=== PATIENT | female | born 1940 | race Caucasian/White ===

== ENCOUNTER 2016-08-12 16:54 | Emergency (ER) | payer MEDICARE ==
[~2016-08-12 16:54] MED LIST: /ADVA50050; /PANT40TA; /WARF25TA; ALBU83IN; ARTIFICAL TEARS; BACL10TA2; BISA10SU2; CALC12502; COLA100C2; DIOV160T5; FERR325T; HYDR25TA6; MAALOX; METAMUCIL; MYLI40DR; POTA10CA2; PREG100CA; SENO8.6T5; SM I100T; THERGRAN; TRAM50TA2; TYL325; VENTAER; ZOLO50TA; [UNRECOGNIZED DRUG - MIXTURE]; [UNRECOGNIZED DRUG - OTHER]
[2016-08-12 19:36] LABS: BASO % 0.7 % (0.0-1.0); EOS # 0.2 K/mm3 (0.0-0.50); EOS % 4.2 % (0.0-3.0); LARGE UNSTAINED CELL # 0.2 K/mm3 (0.0-0.4); LARGE UNSTAINED CELL % 2.9 % (0.0-4.0); LYMPH # 0.7 K/mm3 (1.5-4.5); LYMPH % 13.1 % (24.0-44.0); MEAN CORPUSCULAR HEMOGLOBIN 31.4 pg (27.0-33.0); MEAN CORPUSCULAR HGB CONC 34.2 g/dl (32.0-36.5); MEAN CORPUSCULAR VOLUME 91.7 fl (80.0-96.0); MONO # 0.4 K/mm3 (0.0-0.8); MONO % 6.6 % (0.0-5.0); NEUTROPHILS # 3.8 K/mm3 (1.8-7.7); NEUTROPHILS % 72.5 % (36.0-66.0); PLATELET COUNT, AUTOMATED 165 k/mm3 (150-450); RED CELL DISTRIBUTION WIDTH 12.9 % (11.5-14.5); WHITE BLOOD COUNT 5.2 K/mm3 (4.0-10.0)
[2016-08-12 19:45] LABS: ANION GAP 7 MEQ/L (8-16); BLOOD UREA NITROGEN 22 MG/DL (7-18); CALCIUM LEVEL 9.2 MG/DL (8.8-10.2); CARBON DIOXIDE LEVEL 31 MEQ/L (21-32); CHLORIDE LEVEL 103 MEQ/L (98-107); CREATININE FOR GFR 1.04 MG/DL (0.55-1.02); GLOMERULAR FILTRATION RATE 54.7 (>39); GLUCOSE, FASTING 124 MG/DL (83-110); POTASSIUM SERUM 3.9 MEQ/L (3.5-5.1); SODIUM LEVEL 141 MEQ/L (136-145)
[2016-08-12 19:59] LABS: ERYTHROCYTE SEDIMENTATION RATE 20 mm/hr (0-30)
[2016-08-12] MEDS ORDERED: valACYclovir HCL 500 MG TAB As Ordered ONE (21:35)
--- NOTE | 2016-08-12 21:49 | EDDOCDS ---
Physician Documentation [facility] Name: Heidy Palafox Age: 76 yrs Sex: Female : 1940 Arrival Date: 08/12/2016 Time: 16:54 Bed TR8 Private MD: Dmitriy Manning Disposition: 08/12 21:27 Critical Care: Critical care not applicable. le Disposition: 08/12/16 21:25 Discharged to Home/Self Care. Impression: Zoster [herpes zoster]. - Condition is Stable. - Discharge Instructions: Shingles. - Prescriptions for Valtrex 1 g Oral Tablet - take 1 tablet by ORAL route every 8 hours for 7 days; 21 tablet. - Medication Reconciliation, Local Pharmacy Hours form. - Follow up: Dmitriy Manning; When: Call to arrange an appointment; Reason: Recheck today's complaints, Continuance of care. - Problem is new. - Symptoms are unchanged. - Notes: Return to the ED for any further concerns Historical: - Allergies: Augmentin; Ciprofloxacin; Codeine Sulfate; Keflex; - Home Meds: 1. Bystolic 5 mg oral tab 1 tab once daily (Last dose: 08/12/2016 08:00) 2. Lasix 20 mg Oral tab 1 tab once daily (Last dose: 08/12/2016 08:00) 3. multivitamin Oral tab 1 tab daily (Last dose: 08/12/2016 08:00) 4. ondansetron HCl 4 mg Oral tab four times a day 5. Os-Keenan 500 + D3 500 mg(1,250mg) -200 unit oral tab twice a day (Last dose: 08/12/2016) 6. potassium chloride 10 mEq Oral cpER 1 cap once daily (Last dose: 08/12/2016 08:00) 7. ProAir HFA 90 mcg/actuation inhalation HFAA 1 puff as needed - PMHx: Asthma; Hypertension; Osteoporosis; - PSHx: Right hip eplacement 2007; Appendectomy; Hysterectomy; Back surgery; - Social history: Smoking status: Patient states former smoker of tobacco. No barriers to communication noted, The patient speaks fluent Swedish. - Family history: No immediate family members are acutely ill. - : The pt / caregiver states he / she is not on anticoagulants. Home medication list is obtained from the patient. - Exposure Risk Screening:: None identified. Vital Signs: 16:56 BP 179 / 87; Pulse 71; Resp 16; Temp 97(O); Pulse Ox 97% ; Weight 79.38 kg / 175 lbs; cmb Height 5 ft. 2 in. (157.48 cm); Pain 3/10; 21:33 BP 169 / 81; Pulse 63; Resp 18; Temp 98.3(TE); Pulse Ox 98% on R/A; Pain 0/10; mdr 16:56 Body Mass Index 32.01 (79.38 kg, 157.48 cm) cmb MDM: 19:14 CBC with Diff Ordered. EDMS 19:14 BMP Ordered. EDMS 19:14 ESR Ordered. EDMS 19:14 CRP Ordered. EDMS 19:18 UA Ordered. EDMS 19:19 Hip,AP,LAT to include Pelvis Ordered. EDMS 19:52 [facility] Payment Agreement was scanned into [employer] and attached to record. gjb :52 Financial registration complete. gjb 20:25 CBC with Diff Reviewed. le 20:25 BMP Reviewed. le 20:25 UA Reviewed. le 20:25 ESR Reviewed. le 20:25 CRP Reviewed. le 21:23 valACYclovir 1000 mg PO once ordered. le Administered Medications: 21:44 Drug: valACYclovir 1000 mg [valacyclovir 500 mg tablet (2 tabs)] Route: PO; mb9 Signatures: Dispatcher [employer] Erik Milan, RN Linda Willis, LOG OPERATIONS COORDINATOR Abdi NguyễnRN RN mb9 Paola Lozano The chart was reviewed and I authenticate all verbal orders and agree with the evaluation and treatment provided.Attachments: :52 [facility] Payment Agreement gj MTDD
--- NOTE | 2016-08-12 21:49 | EDDOCDS ---
Nurse's Notes [facility] Name: Heidy Palafox Age: 76 yrs Sex: Female : 1940 Arrival Date: 08/12/2016 Time: 16:54 Bed TR8 Private MD: Dmitriy Manning Diagnosis: Zoster [herpes zoster] Presentation: 08/12 17:17 Presenting complaint: Patient states: Worsening right hip/right sided abdominal pain dwg for 1-2 weeks, no injury or trauma. Adult Sepsis Screening: The patient does not have new or worsening altered mentation. Patient's respiratory rate is less than 22. Systolic blood pressure is greater than 100. Patient has a qSOFA score of 0- Negative Sepsis Screen. Suicide/Homicide risk assessment- the patient denies having any suicidal and/or homicidal ideations and does not present with any other emotional, behavioral or mental health complaints. Status: Patient is not a catering convention services manager or dependent. Transition of care: patient was received from Dr Manning's office ORTHO. 17:17 Acuity: SEGUNDO Level 3 dwg 17:17 Method Of Arrival: Wheelchair dwg Triage Assessment: 17:24 General: Appears in no apparent distress. Pain: Pain currently is 1 out of 10 on a pain dwg scale. Historical: - Allergies: Augmentin; Ciprofloxacin; Codeine Sulfate; Keflex; - Home Meds: 1. Bystolic 5 mg oral tab 1 tab once daily (Last dose: 08/12/2016 08:00) 2. Lasix 20 mg Oral tab 1 tab once daily (Last dose: 08/12/2016 08:00) 3. multivitamin Oral tab 1 tab daily (Last dose: 08/12/2016 08:00) 4. ondansetron HCl 4 mg Oral tab four times a day 5. Os-Keenan 500 + D3 500 mg(1,250mg) -200 unit oral tab twice a day (Last dose: 08/12/2016) 6. potassium chloride 10 mEq Oral cpER 1 cap once daily (Last dose: 08/12/2016 08:00) 7. ProAir HFA 90 mcg/actuation inhalation HFAA 1 puff as needed - PMHx: Asthma; Hypertension; Osteoporosis; - PSHx: Right hip eplacement 2008; Appendectomy; Hysterectomy; Back surgery; - Social history: Smoking status: Patient states former smoker of tobacco. No barriers to communication noted, The patient speaks fluent Azeri. - Family history: No immediate family members are acutely ill. - : The pt / caregiver states he / she is not on anticoagulants. Home medication list is obtained from the patient. - Exposure Risk Screening:: None identified. Screenin:45 Screening information is obtained from the patient. Fall risk: No risks identified. mb9 Assistance ADL's: requires no assistance with activities of daily living. Abuse/DV Screen: The patient / caregiver reports he/she is: not in a situation that causes fear, pain or injury. Nutritional screening: No deficits noted. Advance Directives: There is no active DNR order. home support is adequate. Assessment: 21:45 General: Appears in no apparent distress, Behavior is appropriate for age, cooperative. mb9 Respiratory: Airway is patent Respiratory effort is even, unlabored. Vital Signs: 16:56 BP 179 / 87; Pulse 71; Resp 16; Temp 97(O); Pulse Ox 97% ; Weight 79.38 kg; Height 5 cmb ft. 2 in. (157.48 cm); Pain 3/10; 21:33 BP 169 / 81; Pulse 63; Resp 18; Temp 98.3(TE); Pulse Ox 98% on R/A; Pain 0/10; mdr 16:56 Body Mass Index 32.01 (79.38 kg, 157.48 cm) [facility] Vitals: 16:56 Log In Time: August 12, 2016 at 16:54. cmb ED Course: 16:55 Patient visited by Kathryn Nugent. cmb 16:55 Dmitriy Manning is Private Physician. cmb 16:55 Patient moved to Waiting cmb 16:59 Patient moved to Pre RCE cmb 17:19 Triage Initiated dwg 18:51 Patient moved to Triage 2 mdr 19:09 [facility] Lange FNP [facility]. le 19:14 Patient visited by Linda Lange FNP. le 19:16 Patient visited by Linda Lange FNP. le 19:26 Patient visited by Nimesh Alvarez PCA. mdr 19:26 CRP Sent. mdr 19:26 ESR Sent. mdr 19:26 BMP Sent. mdr 19:26 CBC with Diff Sent. mdr 19:38 Patient moved to TR2 cz 19:41 UA Sent. mdr 19:52 [facility] [place] Agreement was scanned into [employer] and attached to record. gjsveta 21:24 Dmitriy Manning is Referral Physician. le 21:27 Patient moved to PR2 / 26 sls1 21:44 Patient moved to TR8 mb9 21:45 The patient / caregiver is instructed regarding the plan of care and ED course. mb9 21:45 No IV's were initiated during this patient's visit. No procedures done that require mb9 assistance. Administered Medications: 21:44 Drug: valACYclovir 1000 mg [valacyclovir 500 mg tablet (2 tabs)] Route: PO; mb9 Order Results: Lab Order: CBC with Diff; SPEC'M 08/12/16 19:24 Test: WHITE BLOOD COUNT; Value: 5.2; Range: 4.0-10.0; Units: K/mm3; Status: F Test: RED BLOOD COUNT; Value: 4.72; Range: 4.00-5.40; Units: M/mm3; Status: F Test: HEMOGLOBIN; Value: 14.8; Range: 12.0-16.0; Units: g/dl; Status: F Test: HEMATOCRIT; Value: 43.3; Range: 36.0-47.0; Units: %; Status: F Test: MEAN CORPUSCULAR VOLUME; Value: 91.7; Range: 80.0-96.0; Units: fl; Status: F Test: MEAN CORPUSCULAR HEMOGLOBIN; Value: 31.4; Range: 27.0-33.0; Units: pg; Status: F Test: MEAN CORPUSCULAR HGB CONC; Value: 34.2; Range: 32.0-36.5; Units: g/dl; Status: F Test: RED CELL DISTRIBUTION WIDTH; Value: 12.9; Range: 11.5-14.5; Units: %; Status: F Test: PLATELET COUNT, AUTOMATED; Value: 165; Range: 150-450; Units: k/mm3; Status: F Test: NEUTROPHILS %; Value: 72.5; Range: 36.0-66.0; Abnormal: Above high normal; Units: %; Status: F Test: LYMPH %; Value: 13.1; Range: 24.0-44.0; Abnormal: Below low normal; Units: %; Status: F Test: MONO %; Value: 6.6; Range: 0.0-5.0; Abnormal: Above high normal; Units: %; Status: F Test: EOS %; Value: 4.2; Range: 0.0-3.0; Abnormal: Above high normal; Units: %; Status: F Test: BASO %; Value: 0.7; Range: 0.0-1.0; Units: %; Status: F Test: LARGE UNSTAINED CELL %; Value: 2.9; Range: 0.0-4.0; Units: %; Status: F Test: NEUTROPHILS #; Value: 3.8; Range: 1.8-7.7; Units: K/mm3; Status: F Test: LYMPH #; Value: 0.7; Range: 1.5-4.5; Abnormal: Below low normal; Units: K/mm3; Status: F Test: MONO #; Value: 0.4; Range: 0.0-0.8; Units: K/mm3; Status: F Test: EOS #; Value: 0.2; Range: 0.0-0.50; Units: K/mm3; Status: F Test: BASO #; Value: 0.0; Range: 0.0-0.2; Units: K/mm3; Status: F Test: LARGE UNSTAINED CELL #; Value: 0.2; Range: 0.0-0.4; Units: K/mm3; Status: F Lab Order: [facility]; [facility]' 08/12/16 19:24 Test: GLUCOSE, FASTING; Value: 124; Range: 83-110; Abnormal: Above high normal; Units: MG/DL; Status: F Test: BLOOD UREA NITROGEN; Value: 22; Range: 7-18; Abnormal: Above high normal; Units: MG/DL; Status: F Test: CREATININE FOR GFR; Value: 1.04; Range: 0.55-1.02; Abnormal: Above high normal; Units: MG/DL; Status: F Test: GLOMERULAR FILTRATION RATE; Value: 54.7; Range: >39; Status: F Test: SODIUM LEVEL; Value: 141; Range: 136-145; Units: MEQ/L; Status: F Test: POTASSIUM SERUM; Value: 3.9; Range: 3.5-5.1; Units: MEQ/L; Status: F Test: CHLORIDE LEVEL; Value: 103; Range: 98-107; Units: MEQ/L; Status: F Test: CARBON DIOXIDE LEVEL; Value: 31; Range: 21-32; Units: MEQ/L; Status: F Test: ANION GAP; Value: 7; Range: 8-16; Abnormal: Below low normal; Units: MEQ/L; Status: F Test: CALCIUM LEVEL; Value: 9.2; Range: 8.8-10.2; Units: MG/DL; Status: F Test Note: ; Units are mL/min/1.73 m2 Chronic Kidney Disease Staging per NKF: Stage I & II GFR >=60 Normal to Mildly Decreased Stage III GFR 30-59 Moderately Decreased Stage IV GFR 15-29 Severely Decreased Stage V GFR <15 Very Little GFR Left ESRD GFR <15 on LETTER OF CREDIT DOCUMENT EXAMINER Lab Order: ESR; SPEC' 08/12/16 19:24 Test: ERYTHROCYTE SEDIMENTATION RATE; Value: 20; Range: 0-30; Units: mm/hr; Status: F Lab Order: CRP; [facility]' 08/12/16 19:24 Test: C REACTIVE PROTEIN QUANTITATIV; Value: < 0.30; Range: 0.00-0.30; Units: MG/DL; Status: F Lab Order: UA; [facility]' 08/12/16 19:38 Test: APPEARANCE, URINE; Value: CLEAR; Range: CLEAR; Status: F Test: COLOR, URINE; Value: YELLOW; Range: YELLOW; Status: F Test: PH,URINE; Value: 6.0; Range: 5.0-9.0; Units: UNITS; Status: F Test: SPECIFIC GRAVITY URINE AUTO; Value: 1.021; Range: 1.002-1.035; Status: F Test: PROTEIN, URINE AUTO; Value: NEGATIVE; Range: NEGATIVE; Units: mg/dL; Status: F Test: GLUCOSE, URINE (UA) AUTO; Value: NEGATIVE; Range: NEGATIVE; Units: mg/dL; Status: F Test: KETONE, URINE AUTO; Value: TRACE; Range: NEGATIVE; Abnormal: Above high normal; Units: mg/dL; Status: F Test: UROBILINOGEN, URINE AUTO; Value: 0.2; Range: 0.0-2.0; Units: mg/dL; Status: F Test: BILIRUBIN, URINE AUTO; Value: NEGATIVE; Range: NEGATIVE; Status: F Test: NITRITE, URINE AUTO; Value: NEGATIVE; Range: NEGATIVE; Status: F Test: LEUKOCYTE ESTERASE, URINE AUTO; Value: NEGATIVE; Range: NEGATIVE; Status: F Test: BLOOD, URINE BLOOD; Value: NEGATIVE; Range: NEGATIVE; Status: F Test: WBC, URINE AUTO; Value: 2; Range: 0-3; Units: /HPF; Status: F Test: RBC, URINE AUTO; Value: 4; Range: 0-3; Abnormal: Above high normal; Units: /HPF; Status: F Test: BACTERIA, URINE AUTO; Value: NEGATIVE; Range: NEGATIVE; Status: F Test: SQUAMOUS EPITHELIAL CELL UR AU; Value: 1; Range: 0-6; Units: /HPF; Status: F Test: HYALINE CAST, URINE AUTO; Value: 0; Range: 0-1; Units: /LPF; Status: F Outcome: 21:25 Discharge ordered by Provider. le 21:45 Discharge Assessment: Patient awake, alert and oriented x 3. No cognitive and/or mb9 functional deficits noted. Patient verbalized understanding of disposition instructions. patient administered narcotics - no. The following High Risk Discharge criteria are identified: None. Discharged to home ambulatory. Condition: good Condition: stable Condition: improved. Discharge instructions given to patient, Instructed on discharge instructions, follow up and referral plans. medication usage, Demonstrated understanding of instructions, medications, Pt was receptive of discharge instructions/ teaching. Prescriptions given X 1. No special radiology studies were completed. Property :Personal belongings accompany Pt. 21:48 Patient left the ED. mb9 Signatures: Erik Romo RN RN dwg Zecher, Calvin, RN RN cz Westcott, Lisa, CONTRACT CONSULTANT CONTRACT CONSULTANTTorrie Emerson RN RN sls1 Kathryn Nugent Michael, RN RN mb9 Nimesh Alvarez, MARISA RUBBER MOLD MAKER Paola Lopez MTDD
--- NOTE | 2016-08-13 08:46 | REP ---
PELVIS RIGHT HIP: Three views. HISTORY: Pain. Status post hip replacement. FINDINGS: There is diffuse osteoporosis. The patient is status post lumbar spine fusion. Scoliosis is seen. A right hip prosthesis noted in place. There is no evidence of fracture or bony destructive lesion. There is an exostosis in the subtrochanteric femur projecting laterally. This is unchanged from November 25, 2015. IMPRESSION: Diffuse osteoporosis. Postoperative changes in the lumbar spine and right hip. No acute bony abnormality. Signed by Ellis Maradiaga MD 08/13/2016 08:04 P
--- NOTE | 2016-08-14 22:49 | EDDOCDS ---
Physician Documentation [facility] Name: Heidy Palafox Age: 76 yrs Sex: Female : 1940 Arrival Date: 08/12/2016 Time: 16:54 Bed TR8 Private MD: Dmitriy Manning Disposition: 08/12 21:27 Critical Care: Critical care not applicable. le Disposition: 08/12/16 21:25 Discharged to Home/Self Care. Impression: Zoster [herpes zoster]. - Condition is Stable. - Discharge Instructions: Shingles. - Prescriptions for Valtrex 1 g Oral Tablet - take 1 tablet by ORAL route every 8 hours for 7 days; 21 tablet. - Medication Reconciliation, Local Pharmacy Hours form. - Follow up: Dmitriy Manning; When: Call to arrange an appointment; Reason: Recheck today's complaints, Continuance of care. - Problem is new. - Symptoms are unchanged. - Notes: Return to the ED for any further concerns Historical: - Allergies: Augmentin; Ciprofloxacin; Codeine Sulfate; Keflex; - Home Meds: 1. Bystolic 5 mg oral tab 1 tab once daily (Last dose: 08/12/2016 08:00) 2. Lasix 20 mg Oral tab 1 tab once daily (Last dose: 08/12/2016 08:00) 3. multivitamin Oral tab 1 tab daily (Last dose: 08/12/2016 08:00) 4. ondansetron HCl 4 mg Oral tab four times a day 5. Os-Keenan 500 + D3 500 mg(1,250mg) -200 unit oral tab twice a day (Last dose: 08/12/2016) 6. potassium chloride 10 mEq Oral cpER 1 cap once daily (Last dose: 08/12/2016 08:00) 7. ProAir HFA 90 mcg/actuation inhalation HFAA 1 puff as needed - PMHx: Asthma; Hypertension; Osteoporosis; - PSHx: Right hip eplacement 2007; Appendectomy; Hysterectomy; Back surgery; - Social history: Smoking status: Patient states former smoker of tobacco. No barriers to communication noted, The patient speaks fluent Turkish. - Family history: No immediate family members are acutely ill. - : The pt / caregiver states he / she is not on anticoagulants. Home medication list is obtained from the patient. - Exposure Risk Screening:: None identified. Vital Signs: 16:56 BP 179 / 87; Pulse 71; Resp 16; Temp 97(O); Pulse Ox 97% ; Weight 79.38 kg / 175 lbs; cmb Height 5 ft. 2 in. (157.48 cm); Pain 3/10; 21:33 BP 169 / 81; Pulse 63; Resp 18; Temp 98.3(TE); Pulse Ox 98% on R/A; Pain 0/10; mdr 16:56 Body Mass Index 32.01 (79.38 kg, 157.48 cm) cmb MDM: 19:14 CBC with Diff Ordered. EDMS 19:14 BMP Ordered. EDMS 19:14 ESR Ordered. EDMS 19:14 CRP Ordered. EDMS 19:18 UA Ordered. EDMS 19:19 Hip,AP,LAT to include Pelvis Ordered. EDMS :52 [facility]S [facility]CLUDE 234 BEDS AT THE [facility] Payment Agreement was scanned into [employer] and attached to record. [facility] :52 Financial registration complete. gjb 20:25 CBC with Diff Reviewed. le 20:25 BMP Reviewed. le 20:25 UA Reviewed. le 20:25 ESR Reviewed. le 20:25 CRP Reviewed. le 21:23 valACYclovir 1000 mg PO once ordered. le 08/13 11:54 T-Sheet-- Draft Copy was scanned into [employer] and attached to record. gb Administered Medications: 08/12 21:44 Drug: valACYclovir 1000 mg [valacyclovir 500 mg tablet (2 tabs)] Route: PO; mb9 Signatures: Dispatcher [employer] Erik Milan RN RN dwg Barnhardt, Gloria, Reg Reg gb Linda Lange, CUONG MARKETING ANALYTICS ANALYSTAbdi Flanagan RN RN mb9 Paola Lozano The chart was reviewed and I authenticate all verbal orders and agree with the evaluation and treatment provided.Attachments: : COUNTS INCLUDE 234 BEDS AT THE [facility] Payment Agreement [facility] 08/13 11:54 T-Sheet-- Draft Copy gb Chart Complete MTDD
--- NOTE | 2016-08-14 22:49 | EDDOCDS ---
Physician Documentation [facility] Name: Heidy Palafox Age: 76 yrs Sex: Female : 1940 Arrival Date: 08/12/2016 Time: 16:54 Bed TR8 Private MD: Dmitriy Manning Disposition: 08/12 21:27 Critical Care: Critical care not applicable. le Disposition: 08/12/16 21:25 Discharged to Home/Self Care. Impression: Zoster [herpes zoster]. - Condition is Stable. - Discharge Instructions: Shingles. - Prescriptions for Valtrex 1 g Oral Tablet - take 1 tablet by ORAL route every 8 hours for 7 days; 21 tablet. - Medication Reconciliation, Local Pharmacy Hours form. - Follow up: Dmitriy Manning; When: Call to arrange an appointment; Reason: Recheck today's complaints, Continuance of care. - Problem is new. - Symptoms are unchanged. - Notes: Return to the ED for any further concerns Historical: - Allergies: Augmentin; Ciprofloxacin; Codeine Sulfate; Keflex; - Home Meds: 1. Bystolic 5 mg oral tab 1 tab once daily (Last dose: 08/12/2016 08:00) 2. Lasix 20 mg Oral tab 1 tab once daily (Last dose: 08/12/2016 08:00) 3. multivitamin Oral tab 1 tab daily (Last dose: 08/12/2016 08:00) 4. ondansetron HCl 4 mg Oral tab four times a day 5. Os-Keenan 500 + D3 500 mg(1,250mg) -200 unit oral tab twice a day (Last dose: 08/12/2016) 6. potassium chloride 10 mEq Oral cpER 1 cap once daily (Last dose: 08/12/2016 08:00) 7. ProAir HFA 90 mcg/actuation inhalation HFAA 1 puff as needed - PMHx: Asthma; Hypertension; Osteoporosis; - PSHx: Right hip eplacement 2007; Appendectomy; Hysterectomy; Back surgery; - Social history: Smoking status: Patient states former smoker of tobacco. No barriers to communication noted, The patient speaks fluent Yi. - Family history: No immediate family members are acutely ill. - : The pt / caregiver states he / she is not on anticoagulants. Home medication list is obtained from the patient. - Exposure Risk Screening:: None identified. Vital Signs: 16:56 BP 179 / 87; Pulse 71; Resp 16; Temp 97(O); Pulse Ox 97% ; Weight 79.38 kg / 175 lbs; cmb Height 5 ft. 2 in. (157.48 cm); Pain 3/10; 21:33 BP 169 / 81; Pulse 63; Resp 18; Temp 98.3(TE); Pulse Ox 98% on R/A; Pain 0/10; mdr 16:56 Body Mass Index 32.01 (79.38 kg, 157.48 cm) cmb MDM: 19:14 CBC with Diff Ordered. EDMS 19:14 BMP Ordered. EDMS 19:14 ESR Ordered. EDMS 19:14 CRP Ordered. EDMS 19:18 UA Ordered. EDMS 19:19 Hip,AP,LAT to include Pelvis Ordered. EDMS :52 [facility] Payment Agreement was scanned into [employer] and attached to record. [facility] :52 Financial registration complete. gjb 20:25 CBC with Diff Reviewed. le 20:25 BMP Reviewed. le 20:25 UA Reviewed. le 20:25 ESR Reviewed. le 20:25 CRP Reviewed. le 21:23 valACYclovir 1000 mg PO once ordered. le 08/13 11:54 T-Sheet-- Draft Copy was scanned into [employer] and attached to record. gb Administered Medications: 08/12 21:44 Drug: valACYclovir 1000 mg [valacyclovir 500 mg tablet (2 tabs)] Route: PO; mb9 Signatures: Dispatcher [employer] Erik Milan RN RN dwg Barnhardt, Gloria, Reg Reg gb Linda Lange, CUONG SENIOR QUALITY CONTROL INSPECTORAbdi Flanagan RN RN mb9 Paola Lozano The chart was reviewed and I authenticate all verbal orders and agree with the evaluation and treatment provided.Attachments: : [facility] Payment Agreement [facility] 08/13 11:54 T-Sheet-- Draft Copy gb Chart Complete MTDD
--- NOTE | 2016-08-14 22:49 | EDDOCDS ---
Nurse's Notes [facility] Name: Heidy Palafox Age: 76 yrs Sex: Female : 1940 Arrival Date: 08/12/2016 Time: 16:54 Bed TR8 Private MD: Dmitriy Manning Diagnosis: Zoster [herpes zoster] Presentation: 08/12 17:17 Presenting complaint: Patient states: Worsening right hip/right sided abdominal pain dwg for 1-2 weeks, no injury or trauma. Adult Sepsis Screening: The patient does not have new or worsening altered mentation. Patient's respiratory rate is less than 22. Systolic blood pressure is greater than 100. Patient has a qSOFA score of 0- Negative Sepsis Screen. Suicide/Homicide risk assessment- the patient denies having any suicidal and/or homicidal ideations and does not present with any other emotional, behavioral or mental health complaints. Status: Patient is not a support services tech or dependent. Transition of care: patient was received from Dr Manning's office ORTHO. 17:17 Acuity: SEGUNDO Level 3 dwg 17:17 Method Of Arrival: Wheelchair dwg Triage Assessment: 17:24 General: Appears in no apparent distress. Pain: Pain currently is 1 out of 10 on a pain dwg scale. Historical: - Allergies: Augmentin; Ciprofloxacin; Codeine Sulfate; Keflex; - Home Meds: 1. Bystolic 5 mg oral tab 1 tab once daily (Last dose: 08/12/2016 08:00) 2. Lasix 20 mg Oral tab 1 tab once daily (Last dose: 08/12/2016 08:00) 3. multivitamin Oral tab 1 tab daily (Last dose: 08/12/2016 08:00) 4. ondansetron HCl 4 mg Oral tab four times a day 5. Os-Keenan 500 + D3 500 mg(1,250mg) -200 unit oral tab twice a day (Last dose: 08/12/2016) 6. potassium chloride 10 mEq Oral cpER 1 cap once daily (Last dose: 08/12/2016 08:00) 7. ProAir HFA 90 mcg/actuation inhalation HFAA 1 puff as needed - PMHx: Asthma; Hypertension; Osteoporosis; - PSHx: Right hip eplacement 2008; Appendectomy; Hysterectomy; Back surgery; - Social history: Smoking status: Patient states former smoker of tobacco. No barriers to communication noted, The patient speaks fluent Romanian. - Family history: No immediate family members are acutely ill. - : The pt / caregiver states he / she is not on anticoagulants. Home medication list is obtained from the patient. - Exposure Risk Screening:: None identified. Screenin:45 Screening information is obtained from the patient. Fall risk: No risks identified. mb9 Assistance ADL's: requires no assistance with activities of daily living. Abuse/DV Screen: The patient / caregiver reports he/she is: not in a situation that causes fear, pain or injury. Nutritional screening: No deficits noted. Advance Directives: There is no active DNR order. home support is adequate. Assessment: 21:45 General: Appears in no apparent distress, Behavior is appropriate for age, cooperative. mb9 Respiratory: Airway is patent Respiratory effort is even, unlabored. Vital Signs: 16:56 BP 179 / 87; Pulse 71; Resp 16; Temp 97(O); Pulse Ox 97% ; Weight 79.38 kg; Height 5 cmb ft. 2 in. (157.48 cm); Pain 3/10; 21:33 BP 169 / 81; Pulse 63; Resp 18; Temp 98.3(TE); Pulse Ox 98% on R/A; Pain 0/10; mdr 16:56 Body Mass Index 32.01 (79.38 kg, 157.48 cm) [facility] Vitals: 16:56 Log In Time: August 12, 2016 at 16:54. cmb ED Course: 16:55 Patient visited by Kathryn Nugent. cmb 16:55 Dmitriy Manning is Private Physician. cmb 16:55 Patient moved to Waiting cmb 16:59 Patient moved to Pre RCE cmb 17:19 Triage Initiated dwg 18:51 Patient moved to Triage 2 mdr 19:09 [facility] FNP [facility] le 19:14 Patient visited by Lnida Lange FNP. le 19:16 Patient visited by Linda Lange FNP. le 19:26 Patient visited by Nimesh Alvarez PCA. mdr 19:26 CRP Sent. mdr 19:26 ESR Sent. mdr 19:26 BMP Sent. mdr 19:26 CBC with Diff Sent. mdr 19:38 Patient moved to TR2 cz 19:41 UA Sent. mdr 19:52 [facility] Payment Agreement was scanned into [employer] and attached to record. gjb 21:24 Dmitriy Manning is Referral Physician. le 21:27 Patient moved to PR2 / 26 sls1 21:44 Patient moved to TR8 mb9 21:45 The patient / caregiver is instructed regarding the plan of care and ED course. mb9 21:45 No IV's were initiated during this patient's visit. No procedures done that require mb9 assistance. 08/13 09:10 Hip,AP,LAT to include Pelvis Returned. EDMS 11:54 T-Sheet-- Draft Copy was scanned into [employer] and attached to record. gb Administered Medications: 08/12 21:44 Drug: valACYclovir 1000 mg [valacyclovir 500 mg tablet (2 tabs)] Route: PO; mb9 Order Results: Lab Order: CBC with Diff; SPEC'M 08/12/16 19:24 Test: WHITE BLOOD COUNT; Value: 5.2; Range: 4.0-10.0; Units: K/mm3; Status: F Test: RED BLOOD COUNT; Value: 4.72; Range: 4.00-5.40; Units: M/mm3; Status: F Test: HEMOGLOBIN; Value: 14.8; Range: 12.0-16.0; Units: g/dl; Status: F Test: HEMATOCRIT; Value: 43.3; Range: 36.0-47.0; Units: %; Status: F Test: MEAN CORPUSCULAR VOLUME; Value: 91.7; Range: 80.0-96.0; Units: fl; Status: F Test: MEAN CORPUSCULAR HEMOGLOBIN; Value: 31.4; Range: 27.0-33.0; Units: pg; Status: F Test: MEAN CORPUSCULAR HGB CONC; Value: 34.2; Range: 32.0-36.5; Units: g/dl; Status: F Test: RED CELL DISTRIBUTION WIDTH; Value: 12.9; Range: 11.5-14.5; Units: %; Status: F Test: PLATELET COUNT, AUTOMATED; Value: 165; Range: 150-450; Units: k/mm3; Status: F Test: NEUTROPHILS %; Value: 72.5; Range: 36.0-66.0; Abnormal: Above high normal; Units: %; Status: F Test: LYMPH %; Value: 13.1; Range: 24.0-44.0; Abnormal: Below low normal; Units: %; Status: F Test: MONO %; Value: 6.6; Range: 0.0-5.0; Abnormal: Above high normal; Units: %; Status: F Test: EOS %; Value: 4.2; Range: 0.0-3.0; Abnormal: Above high normal; Units: %; Status: F Test: BASO %; Value: 0.7; Range: 0.0-1.0; Units: %; Status: F Test: LARGE UNSTAINED CELL %; Value: 2.9; Range: 0.0-4.0; Units: %; Status: F Test: NEUTROPHILS #; Value: 3.8; Range: 1.8-7.7; Units: K/mm3; Status: F Test: LYMPH #; Value: 0.7; Range: 1.5-4.5; Abnormal: Below low normal; Units: K/mm3; Status: F Test: MONO #; Value: 0.4; Range: 0.0-0.8; Units: K/mm3; Status: F Test: EOS #; Value: 0.2; Range: 0.0-0.50; Units: K/mm3; Status: F Test: BASO #; Value: 0.0; Range: 0.0-0.2; Units: K/mm3; Status: F Test: LARGE UNSTAINED CELL #; Value: 0.2; Range: 0.0-0.4; Units: K/mm3; Status: F Lab Order: [facility]; SPEC'M 08/12/16 19:24 Test: GLUCOSE, FASTING; Value: 124; Range: 83-110; Abnormal: Above high normal; Units: MG/DL; Status: F Test: BLOOD UREA NITROGEN; Value: 22; Range: 7-18; Abnormal: Above high normal; Units: MG/DL; Status: F Test: CREATININE FOR GFR; Value: 1.04; Range: 0.55-1.02; Abnormal: Above high normal; Units: MG/DL; Status: F Test: GLOMERULAR FILTRATION RATE; Value: 54.7; Range: >39; Status: F Test: SODIUM LEVEL; Value: 141; Range: 136-145; Units: MEQ/L; Status: F Test: POTASSIUM SERUM; Value: 3.9; Range: 3.5-5.1; Units: MEQ/L; Status: F Test: CHLORIDE LEVEL; Value: 103; Range: 98-107; Units: MEQ/L; Status: F Test: CARBON DIOXIDE LEVEL; Value: 31; Range: 21-32; Units: MEQ/L; Status: F Test: ANION GAP; Value: 7; Range: 8-16; Abnormal: Below low normal; Units: MEQ/L; Status: F Test: CALCIUM LEVEL; Value: 9.2; Range: 8.8-10.2; Units: MG/DL; Status: F Test Note: ; Units are mL/min/1.73 m2 Chronic Kidney Disease Staging per NKF: Stage I & II GFR >=60 Normal to Mildly Decreased Stage III GFR 30-59 Moderately Decreased Stage IV GFR 15-29 Severely Decreased Stage V GFR <15 Very Little GFR Left ESRD GFR <15 on [employer] Lab Order: ESR; SPEC'M 08/12/16 19:24 Test: ERYTHROCYTE SEDIMENTATION RATE; Value: 20; Range: 0-30; Units: mm/hr; Status: F Lab Order: CRP; SPEC'M 08/12/16 19:24 Test: C REACTIVE PROTEIN QUANTITATIV; Value: < 0.30; Range: 0.00-0.30; Units: MG/DL; Status: F Lab Order: UA; SPEC'M 08/12/16 19:38 Test: APPEARANCE, URINE; Value: CLEAR; Range: CLEAR; Status: F Test: COLOR, URINE; Value: YELLOW; Range: YELLOW; Status: F Test: PH,URINE; Value: 6.0; Range: 5.0-9.0; Units: UNITS; Status: F Test: SPECIFIC GRAVITY URINE AUTO; Value: 1.021; Range: 1.002-1.035; Status: F Test: PROTEIN, URINE AUTO; Value: NEGATIVE; Range: NEGATIVE; Units: mg/dL; Status: F Test: GLUCOSE, URINE (UA) AUTO; Value: NEGATIVE; Range: NEGATIVE; Units: mg/dL; Status: F Test: KETONE, URINE AUTO; Value: TRACE; Range: NEGATIVE; Abnormal: Above high normal; Units: mg/dL; Status: F Test: UROBILINOGEN, URINE AUTO; Value: 0.2; Range: 0.0-2.0; Units: mg/dL; Status: F Test: BILIRUBIN, URINE AUTO; Value: NEGATIVE; Range: NEGATIVE; Status: F Test: NITRITE, URINE AUTO; Value: NEGATIVE; Range: NEGATIVE; Status: F Test: LEUKOCYTE ESTERASE, URINE AUTO; Value: NEGATIVE; Range: NEGATIVE; Status: F Test: BLOOD, URINE BLOOD; Value: NEGATIVE; Range: NEGATIVE; Status: F Test: WBC, URINE AUTO; Value: 2; Range: 0-3; Units: /HPF; Status: F Test: RBC, URINE AUTO; Value: 4; Range: 0-3; Abnormal: Above high normal; Units: /HPF; Status: F Test: BACTERIA, URINE AUTO; Value: NEGATIVE; Range: NEGATIVE; Status: F Test: SQUAMOUS EPITHELIAL CELL UR AU; Value: 1; Range: 0-6; Units: /HPF; Status: F Test: HYALINE CAST, URINE AUTO; Value: 0; Range: 0-1; Units: /LPF; Status: F Radiology Order: Hip,AP,LAT to include Pelvis Test: Hip,AP,LAT to include Pelvis REASON FOR EXAMINATION: pain, s/p hip replacement; PELVIS RIGHT HIP:; ; Three views.; ; HISTORY: Pain. Status post hip replacement.; ; FINDINGS: There is diffuse osteoporosis. The patient is status post lumbar; spine fusion. Scoliosis is seen. A right hip prosthesis noted in place. There; is no evidence of fracture or bony destructive lesion. There is an exostosis in; the subtrochanteric femur projecting laterally. This is unchanged from November 242015.; ; IMPRESSION: Diffuse osteoporosis. Postoperative changes in the lumbar spine and; right hip. No acute bony abnormality.; ; ; Signed by; Ellis Maradiaga MD 08/13/2016 08:04 P; Outcome: 21:25 Discharge ordered by Provider. le 21:45 Discharge Assessment: Patient awake, alert and oriented x 3. No cognitive and/or mb9 functional deficits noted. Patient verbalized understanding of disposition instructions. patient administered narcotics - no. The following High Risk Discharge criteria are identified: None. Discharged to home ambulatory. Condition: good Condition: stable Condition: improved. Discharge instructions given to patient, Instructed on discharge instructions, follow up and referral plans. medication usage, Demonstrated understanding of instructions, medications, Pt was receptive of discharge instructions/ teaching. Prescriptions given X 1. No special radiology studies were completed. Property :Personal belongings accompany Pt. 21:48 Patient left the ED. [email or web address] Signatures: Dispatcher [employer] EDErik Colin, RN RN Mikie Chan RN RN cz Stephany Durán, Reg Reg gb Linda Lange, GRADUATE TEACHING ASSOCIATE GRADUATE TEACHING ASSOCIATE Torrie Crews RN RN sls1 Kathryn Nugent Michael, RN RN mb9 Nimesh Alvarez, MARISA DAIRY FARMER Paola Lopez Chart Complete MTDD
== END 2016-08-12 21:48 | disposition home or self-care (01) ==
LOC: M ED 16:54
DX: B02.9 Zoster without complications (principal); I10 Essential (primary) hypertension; J45.909 Unspecified asthma, uncomplicated; M81.0 Age-related osteoporosis without current pathological fracture; Z79.899 Other long term (current) drug therapy; Z88.1 Allergy status to other antibiotic agents; Z88.5 Allergy status to narcotic agent

== ENCOUNTER 2016-09-28 16:27 | Observation (INO) | payer MEDICAID, MEDICARE ==
[~2016-09-28] VITALS: Ht 157.5 cm; Wt 84.1 kg
[2016-09-28] MEDS ORDERED: NS 1,000 ML IV SCH (17:10)
[2016-09-28] MEDS ORDERED: MORPHINE 4 MG/ML 1ML SYRINGE IV ONE (17:15)
[2016-09-28] MEDS ORDERED: ONDANSETRON 4MG/2ML VIAL (J2405) IV ONE ×2 (17:15→20:45)
[2016-09-28] MEDS ORDERED: COLA100C PO (17:17)
[2016-09-28] MEDS ORDERED: LASI20TA PO (17:17)
[2016-09-28] MEDS ORDERED: SYMB80INH INH (17:17)
[2016-09-28] MEDS ORDERED: BYST10TA2 PO (17:17)
[2016-09-28] MEDS ORDERED: PROA1AER INH (17:17)
[2016-09-28] MEDS ORDERED: ZOFR4TAB3 PO (17:17)
[2016-09-28] MEDS ORDERED: MOME50SP (17:17)
[2016-09-28] MEDS ORDERED: OYSCTAB3 PO (17:17)
[2016-09-28 17:29] LABS: ALBUMIN 3.9 GM/DL (3.2-5.2); ALBUMIN/GLOBULIN RATIO 0.85 (1.00-1.93); ALKALINE PHOSPHATASE 116 U/L (45-117); ALT/SGPT 21 U/L (12-78); ANION GAP 9 MEQ/L (8-16); AST/SGOT 25 U/L (15-37); BILIRUBIN,DIRECT 0.1 MG/DL (0.0-0.2); BILIRUBIN,TOTAL 0.4 MG/DL (0.2-1.0); BLOOD UREA NITROGEN 13 MG/DL (7-18); CALCIUM LEVEL 8.7 MG/DL (8.8-10.2); CARBON DIOXIDE LEVEL 28 MEQ/L (21-32); CHLORIDE LEVEL 104 MEQ/L (98-107); CREATININE FOR GFR 0.95 MG/DL (0.55-1.02); GLOMERULAR FILTRATION RATE > 60.0 (>39); GLUCOSE, FASTING 131 MG/DL (83-110); POTASSIUM SERUM 3.8 MEQ/L (3.5-5.1); SODIUM LEVEL 141 MEQ/L (136-145); TOTAL PROTEIN 8.5 GM/DL (6.4-8.2)
[2016-09-28 17:40] LABS: BASO % 0.3 % (0.0-1.0); EOS % 0.5 % (0.0-3.0); LARGE UNSTAINED CELL # 0.1 K/mm3 (0.0-0.4); LARGE UNSTAINED CELL % 1.1 % (0.0-4.0); LYMPH # 0.6 K/mm3 (1.5-4.5); LYMPH % 7.9 % (24.0-44.0); MEAN CORPUSCULAR HEMOGLOBIN 31.3 pg (27.0-33.0); MEAN CORPUSCULAR HGB CONC 33.6 g/dl (32.0-36.5); MEAN CORPUSCULAR VOLUME 93.1 fl (80.0-96.0); MONO # 0.3 K/mm3 (0.0-0.8); NEUTROPHILS # 5.3 K/mm3 (1.8-7.7); NEUTROPHILS % 85.3 % (36.0-66.0); PLATELET COUNT, AUTOMATED 175 k/mm3 (150-450); RED CELL DISTRIBUTION WIDTH 13.8 % (11.5-14.5); WHITE BLOOD COUNT 6.2 K/mm3 (4.0-10.0)
[2016-09-28] MEDS ORDERED: NEBIVOLOL 5 MG TAB (BYSTOLIC) PO ONE (19:00)
[2016-09-28] MEDS ORDERED: FUROSEMIDE 20 MG TAB PO ONE (19:00)
[2016-09-28] MEDS ORDERED: GASTROGRAFIN SOLUTION 30ML (Q9963) PO ONE ×2 (19:15→19:45)
[2016-09-28] MEDS ORDERED: METOCLOPRAMIDE INJ 10MG/2ML VIAL (J2765) IV ONE (19:15)
--- NOTE | 2016-09-28 20:23 | ECGEPIP ---
Stationary ECG Study [facility] - ED Test Date: 2016-09-28 Pat Name: KIM HOLMAN Department: Room: - Gender: F Checker: be : 1940 Requested By: ANGELICA Wilcox Order Number: [id number] Reading MD: uSnshine Gil Measurements Intervals [place] Rate: 73 P: 43 W[place]: 208 QRS: -26 QRSD: 105 T: 37 QT: 406 QTc: 449 Interpretive Statements SINUS RHYTHM BORDERLINE LEFT AXIS DEVIATION NSTTW ABNORMALITY SIMILAR 10/12/13 Electronically Signed On 09-28-2016 20:23:09 EST by Sunshine Gil
[2016-09-28] MEDS ORDERED: ISOVUE-370 76% 100ML VIAL (Q9967) As Ordered ONE (20:39)
[2016-09-28] MEDS: SYMBICORT 80/4.5MCG INHALER 6GM INH SCH (21:00)
[2016-09-28] MEDS ORDERED: IBUPROFEN 600 MG TAB PO ONE (21:30)
--- NOTE | 2016-09-28 22:10 | REPUSA ---
CLINICAL HISTORY: Headaches. TECHNIQUE: Multiple axial CT images were obtained through the brain without IV contrast material. COMMENTS: There is normal configuration of sella turcica. There are no intra or extra-axial collections. There is no mass effect or midline shift. There is no evidence of hematoma formation. No hydrocephalus is p resent. The ventricles are symmetrical. No abnormal calcifications are present. There is diffuse age-appropriate cerebellar and cerebral atrophy with proportionally dilated ventricl es and cortical sulci. There are bilateral confluent periventricular and subcortical white matter hypolucencies compatible w ith severe chronic microvascular disease. Otherwise, no significant focal abnormalities are seen either in the posterior fossa or supratentoria l compartment. IMPRESSION: 1. Cerebellar and cerebral atrophy. 2. Severe chronic microvascular disease. 3. No evidence of acute intracranial pathology. Thank you for your kind referral of this patient.
--- NOTE | 2016-09-28 22:50 | REPUSA ---
CLINICAL HISTORY: Vomiting, pain. TECHNIQUE: Multiple axial CT images were obtained through the abdomen and pelvis after administratio n of oral and intravenous contrast material. COMMENTS: Correlation is made with prior study dated 10/02/2013. The liver is of uniform attenuation without mass or defect. There is no intra or extrahepatic biliar y ductal dilatation. The spleen is normal. There is hyperdense material present in the dependent po rtion of gallbladder may represent small gallstones versus sludge. A 2 x 2.7 cm mass is present in t he left adrenal gland which is hypodense most compatible with adenom, stable. The right adrenal gla nd is unremarkable. The pancreas is of normal contour and attenuation characteristics. Both kidneys demonstrate prompt and equal nephrograms. The kidneys are normal in size, shape and con figuration. There is no evidence of renal or ureteral mass. No renal or ureteral calculi are identi fied. There is no hydroureter or hydronephrosis. There is no evidence for appendicitis. Diffuse sigmoid diverticulosis is present. There is no bowel wall thickening. No evidence for small or large bowel obstruction. There is no evidence of abdomina l ascites or lymphadenopathy. Scattered descending and sigmoid diverticula are seen. No evidence of diverticulitis. There is no evidence of intrinsic or extrinsic bladder mass. There is no pelvic ascites or lymphaden opathy. Images of the lung bases show no evidence of pleural or parenchymal mass. There are no pleural effus ions. Scarring is seen in the right middle lobe and right lung base. Status post complete hysterectomy. The bony structures are free of lytic or blastic lesions. Multilevel degenerative changes are seen i nvolving the thoracolumbar spine. Patient is status post right total hip replacement. Status post p osterior lumbar fusion. Scattered calcifications are seen involving the aorta and major branches compatible with atherosclero sis. Small fat containing umbilical hernia is seen. Small hiatal hernia is present. IMPRESSION: 1. No acute abdominal or pelvic pathology. 2. Hyperdense material present in the dependent portion of gallbladder may represent small gallstone s versus sludge. 4. A 2 x 2.7 cm mass is present in the left adrenal gland which is hypodense most compatible with an adenoma. 5. Scattered descending and sigmoid diverticula are seen. No evidence of diverticulitis. 6. Small fat containing umbilical hernia is seen. 7. Small hiatal hernia is present. Thank you for your kind referral of this patient. We appreciate the opportunity to participate in thi s patient's care.
[2016-09-29] VITALS (8 sets, daily range): BP systolic 140–186; BP diastolic 60–107
[2016-09-29] MEDS ORDERED: POTA10CA PO (00:51)
[2016-09-29] MEDS ORDERED: VITMTA PO (00:51)
[2016-09-29] MEDS ORDERED: ZOFR4TAB3 PO (00:52)
[2016-09-29] MEDS ORDERED: ARTI99.0 OU (00:53)
[2016-09-29] MEDS ORDERED: VITA100066 PO (00:54)
[2016-09-29] MEDS ORDERED: ALBUTEROL 90 MCG/ACT 8GM HFA INHALER INH PRN (01:30)
[2016-09-29] MEDS ORDERED: POLYVINYL ALCOHOL OPHTH SOLN 15 ML(LIQUITEARS) OU PRN (01:30)
[2016-09-29] MEDS ORDERED: ONDANSETRON 4 MG TAB (S0181) PO PRN (01:30)
[2016-09-29] MEDS ORDERED: hydrALAZINE INJ 20 MG/ML VIAL IV SCH (02:15)
[2016-09-29] MEDS: NS 1,000 ML IV SCH ×2 (03:13→14:54)
[2016-09-29] MEDS: DOCUSATE SODIUM 100 MG CAP PO SCH ×3 (03:14→21:20)
[2016-09-29] MEDS: **hydrALAZINE** 10 MG TAB PO SCH ×4 (03:14→21:15)
[2016-09-29 06:11] LABS: BASO % 0.1 % (0.0-1.0); EOS % 0.5 % (0.0-3.0); LARGE UNSTAINED CELL % 0.6 % (0.0-4.0); LYMPH # 0.5 K/mm3 (1.5-4.5); LYMPH % 7.4 % (24.0-44.0); MEAN CORPUSCULAR HEMOGLOBIN 31.1 pg (27.0-33.0); MEAN CORPUSCULAR HGB CONC 33.6 g/dl (32.0-36.5); MEAN CORPUSCULAR VOLUME 92.3 fl (80.0-96.0); MONO # 0.2 K/mm3 (0.0-0.8); MONO % 3.7 % (0.0-5.0); NEUTROPHILS # 5.7 K/mm3 (1.8-7.7); NEUTROPHILS % 87.7 % (36.0-66.0); PLATELET COUNT, AUTOMATED 165 k/mm3 (150-450); WHITE BLOOD COUNT 6.5 K/mm3 (4.0-10.0)
--- NOTE | 2016-09-29 06:15 | HPE ---
DATE OF ADMISSION: 09/29/2016 REASON FOR ADMISSION: Vomiting. PRIMARY CARE PROVIDER: Dr. Js Manning HISTORY OF PRESENT ILLNESS: Patient is a 76-year-old female with past medical history significant for headaches, arthritis, hypertension, hyperlipidemia, chronic obstructive pulmonary disease (COPD), presented to the emergency room complaining of vomiting 3-4 episodes that started earlier that day. Denied any hematemesis. Denied any abdominal pain. Denied any diarrhea. Denied any fevers or chills or sick contacts. She lives at home with her and he was not sick. In the emergency room, patient had several more episodes of vomiting despite given Zofran. Abdominal and pelvic CT scan were done. Showed no acute abdominal pelvic pathology. Hyperdense material present in dependent portion of the gallbladder may represent small gallstones versus sludge. 2 x 2.7 cm mass was found in the left adrenal most compatible with adenoma. Patient was also found to have some descending sigmoid diverticula. No evidence of diverticulitis. Small umbilical hernia seen and hiatal hernia. Hospitalist was called for the admission. REVIEW OF SYSTEMS: 12-point review of systems obtained. All of which was negative except for those mentioned above. PAST MEDICAL HISTORY: Significant for headaches, arthritis, hypertension, hyperlipidemia, COPD and edema. PAST SURGICAL HISTORY: Significant for appendectomy, hysterectomy, right total hip replacement. FAMILY HISTORY: Noncontributory. ALLERGIES: To CODEINE, AUGMENTIN, CIPRO and KEFLEX. SOCIAL HISTORY: Patient states that she quit smoking in 1968. No alcohol use. Lives at home with her . HOME MEDICATIONS: Include: - Lasix 20 mg by mouth daily - Zofran 4 mg by mouth every 4 hours as needed, nausea - potassium chloride 10 mEq by mouth daily - Symbicort two puffs inhaled twice a day - Colace 100 mg by mouth - Bystolic 10 mg by mouth daily - vitamin D 1000 units by mouth daily - ProAir two puffs inhaled as needed, shortness of breath PHYSICAL FINDINGS: Vital signs on admission: Temperature 99.6, pulse 86, respiratory rate 18, blood pressure of 180/96, pulse oximetry 96% on room air. HEENT: Pupils equal and round, reactive to light and accommodation. Neck: Supple. No jugular venous distention (JVD). Abdomen: Soft, nontender, nondistended. Extremities: Trace edema bilaterally. Neurologic: Cranial nerves II-XII grossly intact. No focal deficits. LABORATORY FINDINGS: WBC 6.2, hemoglobin 14.8, hematocrit 44, platelet count 175. Sodium 141, potassium 3.8, chloride 104, BUN 13, creatinine 0.95, fasting glucose 131, calcium 8.7. Liver enzymes within normal limits. Troponin less 0.02. Lipase 87. Total protein 8.5. Chest x-ray as above. Head CT was done. Patient was complaining of a headache. Cerebral and cerebellar atrophy, severe chronic microvascular disease. No evidence of acute intracranial pathology. ASSESSMENT AND PLAN: 1. Nausea, vomiting, unknown etiology at this time. Patient has a hiatal hernia. It may be related versus gastroenteritis. We will continue Zofran. We will continue to monitor patient's symptoms. She was started on IV fluids. We will resume at a rate of 70 mL/hr and we will start the patient on a diet. Once she is able to tolerate, she could likely be able to go home the morning. 2. Hypertension. We will add hydralazine for systolic blood pressure greater than 160. 3. History of headaches. 4. History of chronic obstructive pulmonary disease. 5. Hyperlipidemia. 6. History of lower extremity edema. Lasix currently held. 7. Deep venous thrombosis (DVT) prophylaxis. Sequential compressive devices (SCDs) while in bed.
[2016-09-29 06:24] LABS: ALBUMIN 3.3 GM/DL (3.2-5.2); ALKALINE PHOSPHATASE 86 U/L (45-117); ALT/SGPT 18 U/L (12-78); ANION GAP 7 MEQ/L (8-16); AST/SGOT 20 U/L (15-37); BILIRUBIN,TOTAL 0.4 MG/DL (0.2-1.0); BLOOD UREA NITROGEN 12 MG/DL (7-18); CARBON DIOXIDE LEVEL 27 MEQ/L (21-32); CHLORIDE LEVEL 105 MEQ/L (98-107); GLOMERULAR FILTRATION RATE > 60.0 (>39); GLUCOSE, FASTING 127 MG/DL (83-110); POTASSIUM SERUM 3.5 MEQ/L (3.5-5.1); SODIUM LEVEL 139 MEQ/L (136-145); TOTAL PROTEIN 7.4 GM/DL (6.4-8.2)
[2016-09-29] MEDS: SYMBICORT 80/4.5MCG INHALER 6GM INH SCH ×2 (08:42→20:21)
[2016-09-29] MEDS ORDERED: ACETAMINOPHEN TAB 650MG DOSE (2X325MG) PO PRN (09:30)
[2016-09-29] MEDS ORDERED: ONDANSETRON 4MG/2ML VIAL (J2405) IV PRN (09:30)
[2016-09-29] MEDS: MULTIVITAMINS/MINERALS THERAP 1 TAB PO SCH (09:40)
[2016-09-29] MEDS: NEBIVOLOL 5 MG TAB (BYSTOLIC) PO SCH (09:40)
[2016-09-29] MEDS: ENOXAPARIN 40 MG/0.4 ML SYRINGE (J1650) SC SCH (09:40)
[2016-09-29] MEDS: VITAMIN D 1,000 INTERNATIONAL UNITS TABLET PO SCH (09:40)
[2016-09-29] MEDS: EXCEDRIN MIGRAINE TABLET PO PRN ×3 (13:42→23:54)
[2016-09-29] MEDS: amLODIPine 5 MG TAB PO SCH (14:53)
--- NOTE | 2016-09-29 23:59 | IPNPDOC ---
Text Note Date of Service The patient was seen on 09/29/16. NOTE Subjective: 76 yo F was seen and examined at bedside. She admitted to frontal headache that radiated to the back of the bone of her R ear, nausea, and dizziness when standing up. She denies blurred vision, fevers, chills, chest pain, SOB, vomiting, diarrhea, constipation, abdominal pain, weakness, fatigue, rashes/lesions, urinary incontinence, dysuria, hematuria, hematochezia. She reports she slept well overnight. Nursing reports patient had headache, nausea, and dizziness, but no vomiting/diarrhea. Nursing reports that IV zofran has been ordered and tylenol is on board. Objective: Vitals: T 98.2 , P 82 , RR 16, BP 162/83 (109), Pulse Ox: 94% on room air. I's/O's for 24 hours: 350 mLs/500 mLs with -150 mLs balance. UO: 0.25 mL/kg/hr Urine: 500 mLs Emesis: 0 today in the AM NS: 350 mLs Voids: not reported BMs: 0 Wt: 84.1 kg General: Patient awake, alert and oriented, verbal and able to answer questions appropriately. She does not appear to be in any acute distress. HEENT: Normocephalic Atraumatic. Sclera nonicteric. Grossly normal hearing bilaterally. No external nasal lesions. Endocrinology: No thyromegaly. Neck: Supple. No cervical LAD bilaterally. Heart: Regular rate and rhythm, normal S1-S2. No murmurs, rubs, clicks or gallops Lungs: Clear to auscultation bilaterally with decreased breath sounds in all lung whaley. No wheezes, rales or rhonchi Abdomen: Active bowel sounds, soft, nontender, no masses to palpation. Extremities: No clubbing, cyanosis, edema. Without amputations/deformities. MSK: Can sit up. Normal ROM. Vascular: +2 radial pulses bilaterally. Psychiatric: No signs of depression or anxiety Laboratory data: Please see below. Microbiology: Please see below. Imaging: No new imaging done today. Assessment/Plan: 76 yo F with PMH significant for hiatal hernia, headaches, arthritis, hypertension, hyperlipidemia, COPD, and edema is presenting for nausea, vomiting , and diarrhea of unknown etiology. 1) Nausea, vomiting, diarrhea of unknown etiology/Possibly Gastroenteritis: Add zofran IV due to patient reporting nausea today. If nausea controlled, patient can have hypertension meds orally as per nursing. 2) Dizziness: Will obtain 1 set of orthostatic vital signs. If positive, will continue to monitor every few hours. Consider adding meclizine if dizziness does not resolve and orthostatics negative. Place on fall precautions. 3) Hypertension: BP still high. Continue bystolic, amlodipine. Continue hydralazine if systolic BP >160. Continue to monitor BP. 4) Headache: Use tylenol PRN headache. 5) Hx of COPD: Monitor for cough, SOB, and 02 saturation. 6) Hyperlipidemia: Continue home meds. 7) Hx of Lower extremity edema: Hold lasix until dizziness resolves. 8) DVT ppx: SCDs while in bed. Lovenox. 9) GI ppx: Continue zofran. Not on any PPI at this time. Immunizations as per protocol. My preceptor for this patient encounter was Dr. Destiny Peters, and was physically present in the building during the encounter and was fully available. As needed, all aspects of the patient interview, examination, medical decision making process, and medical care plan development were reviewed and approved by the preceptor. Preceptor is aware and concurs with the plan as stated in the body of this note and will attest to such by his/her cosignature Liana HAWKINS, I+O VSLiana, I+O Laboratory Tests 09/29/16 05:37 Calcium Level 8.0 L, Aspartate Amino Transf (AST/SGOT) 20, Alanine Aminotransferase (ALT/SGPT) 18, Alkaline Phosphatase 86, Total Bilirubin 0.4, Total Protein 7.4, Albumin 3.3, Red Blood Count 4.28, Mean Corpuscular Volume 92.3, Mean Corpuscular Hemoglobin 31.1, Mean Corpuscular Hemoglobin Concent 33.6 , Red Cell Distribution Width 14.0, Neutrophils (%) (Auto) 87.7 H, Lymphocytes ( %) (Auto) 7.4 L, Monocytes (%) (Auto) 3.7, Eosinophils (%) (Auto) 0.5, Basophils (%) (Auto) 0.1, Neutrophils # (Auto) 5.7, Lymphocytes # (Auto) 0.5 L, Monocytes # (Auto) 0.2, Eosinophils # (Auto) 0.0, Basophils # (Auto) 0.0 Vital Signs Date Time Temp Pulse Resp B/P Pulse Ox O2 Delivery O2 Flow Rate FiO2 09/29/16 22:00 97.8 65 16 142/80 92 Room Air I&O- Last 24 Hours up to 6 AM 09/29/16 05:59 Intake Total 350 ml Output Total 450 ml Balance -100 ml GME ATTESTATION GME ATTESTATION My preceptor for this patient encounter was physically present in the building during the encounter and was fully available. As needed, all aspects of the patient interview, examination, medical decision making process, and medical care plan development were reviewed and approved by the preceptor. Preceptor is aware and concurs with the plan as stated in the body of this note and will attest to such by his/her cosignature. MARY JANE EASTMAN OGME-1 Sep 29, 2016 23:59
[2016-09-30] MEDS: **hydrALAZINE** 10 MG TAB PO SCH (05:53)
[2016-09-30] MEDS: EXCEDRIN MIGRAINE TABLET PO PRN (05:56)
[2016-09-30 06:00] VITALS: BP 147/90
[2016-09-30 06:14] LABS: BASO % 0.4 % (0.0-1.0); EOS # 0.1 K/mm3 (0.0-0.50); LARGE UNSTAINED CELL # 0.2 K/mm3 (0.0-0.4); LARGE UNSTAINED CELL % 2.8 % (0.0-4.0); LYMPH # 1.2 K/mm3 (1.5-4.5); LYMPH % 16.5 % (24.0-44.0); MEAN CORPUSCULAR HEMOGLOBIN 30.7 pg (27.0-33.0); MEAN CORPUSCULAR HGB CONC 32.8 g/dl (32.0-36.5); MEAN CORPUSCULAR VOLUME 93.5 fl (80.0-96.0); MONO # 0.6 K/mm3 (0.0-0.8); NEUTROPHILS # 5.2 K/mm3 (1.8-7.7); NEUTROPHILS % 71.3 % (36.0-66.0); PLATELET COUNT, AUTOMATED 169 k/mm3 (150-450); RED CELL DISTRIBUTION WIDTH 13.8 % (11.5-14.5); WHITE BLOOD COUNT 7.3 K/mm3 (4.0-10.0)
[2016-09-30 06:30] LABS: ALBUMIN 3.3 GM/DL (3.2-5.2); ALBUMIN/GLOBULIN RATIO 0.83 (1.00-1.93); ALKALINE PHOSPHATASE 87 U/L (45-117); ALT/SGPT 20 U/L (12-78); ANION GAP 8 MEQ/L (8-16); AST/SGOT 30 U/L (15-37); BILIRUBIN,TOTAL 0.6 MG/DL (0.2-1.0); BLOOD UREA NITROGEN 15 MG/DL (7-18); CALCIUM LEVEL 8.2 MG/DL (8.8-10.2); CARBON DIOXIDE LEVEL 28 MEQ/L (21-32); CHLORIDE LEVEL 106 MEQ/L (98-107); CREATININE FOR GFR 0.93 MG/DL (0.55-1.02); GLOMERULAR FILTRATION RATE > 60.0 (>39); GLUCOSE, FASTING 97 MG/DL (83-110); MAGNESIUM LEVEL 2.1 MG/DL (1.8-2.4); POTASSIUM SERUM 3.2 MEQ/L (3.5-5.1); SODIUM LEVEL 142 MEQ/L (136-145); TOTAL PROTEIN 7.3 GM/DL (6.4-8.2)
[2016-09-30] MEDS ORDERED: POTASSIUM CHLORIDE 10 MEQ SR TABLET PO ONE (07:00)
[2016-09-30] MEDS: SYMBICORT 80/4.5MCG INHALER 6GM INH SCH (08:05)
[2016-09-30] MEDS: MULTIVITAMINS/MINERALS THERAP 1 TAB PO SCH (08:35)
[2016-09-30] MEDS: DOCUSATE SODIUM 100 MG CAP PO SCH (08:35)
[2016-09-30] MEDS: VITAMIN D 1,000 INTERNATIONAL UNITS TABLET PO SCH (08:35)
[2016-09-30] MEDS: NEBIVOLOL 5 MG TAB (BYSTOLIC) PO SCH (08:35)
[2016-09-30 08:36] VITALS: BP 142/82
[2016-09-30] MEDS: ENOXAPARIN 40 MG/0.4 ML SYRINGE (J1650) SC SCH (08:36)
[2016-09-30] MEDS: amLODIPine 5 MG TAB PO SCH (08:36)
--- NOTE | 2016-09-30 13:43 | DS.PDOC ---
Discharge Summary General Date of Admission Sep 29, 2016 at 01:23 Date of Discharge Sep 30, 2016 at 11:15 Primary Care Physician: Dmitriy Manning MD Attending Physician: IGNACIO ESCOBEDO MD Discharge Summary PCP: Dr. Dmitriy Manning Attending Physician: Dr. Ignacio Escobedo Consults: None Discharge diagnosis: Nausea & Vomiting secondary to Gastroenteritis. Secondary diagnosis: Hypertension Headache Hx of COPD Hyperlipidemia Hx of Lower Extremity Edema Arthritis Hospital course: This is a 76 yo F who presented on 09/29/16 for 3-4 episodes of vomiting that began the same day. In the ED, the patient had more vomiting episodes which were not controlled with zofran. CT scan of the abdomen/pelvis done in the ED which did not show any abdominal pelvic pathology, but did show hyperdense material present in the dependent portion of the gallbladder which may represent small gallstones versus sludge, a 2x2.7 cm mass in the L adrenal gland compatible with adenoma, some descending sigmoid diverticula but no evidence of diverticulitis, small umbilical hernia, and a hiatal hernia. In addition, the patient also complained of headaches and a CT scan of the head without contrast was done in the ED which showed cerebellar and cerebral atrophy , severe chronic microvascular disease, and no evidence of acute intracranial pathology. The patient was then admitted to the hospitalist service, started on IV fluids, continued treatment with zofran, and monitored for symptoms of nausea /vomiting/diarrhea. Throughout the hospital stay, the patient had been hypertensive, developed dizziness, had continued nausea, and a frontal headache. Due to elevated BPs in the 190s-200s systolic, 10 mg hydralazine was added which was eventually increased to 25 mg q8 hours due to BPs above the 160s systolic. Excedrin was added to the regimen for headache as tylenol 650 mg did not help control it. 1 set of orthostatic vital signs was ordered which were negative to further evaluate for cause of dizziness. PO Zofran was changed to IV zofran until patient's nausea was controlled. The patient eventually improved and felt much better this morning without reports of nausea or vomiting nor diarrhea, and is tolerating PO. She is hemodynamically stable. Labs were unremarkable today. Please see below. Progress note on date of discharge: Subjective: Today, patient denies fevers, chills, dizziness, blurred vision, sore throat, earaches, runny nose, cough, chest pain, SOB, nausea, vomiting, diarrhea, constipation, weakness, fatigue, weight gain/loss, hematochezia, hematuria, rashes/lesions. Admits to slight frontal headache today but not as severe as yesterday. States she is feeling better. Nursing reported that patient remained stable with no acute overnight events and with no episodes of nausea/vomiting. Excedrin seemed to have helped the headaches and the patient reports improvement in her pain. Objective: Vitals: T 98, P 64, RR 17 BP 142/82, Pulse Ox: 91% Room Air. General: Pleasant elderly female sitting up in chair. Patient awake, alert and oriented, verbal and able to answer questions appropriately. She does not appear to be in any acute distress. HEENT: Normocephalic Atraumatic. Grossly normal hearing bilaterally. Sclera Nonicteric. No external nasal lesions. Endocrinology: No thyromegaly. Neck: Supple. No cervical LAD bilaterally. Heart: Regular rate and rhythm, normal S1-S2. No murmurs, rubs, clicks or gallops Lungs: Clear to auscultation bilaterally. No wheezes, rales or rhonchi Abdomen: Active bowel sounds, soft, nontender, no masses to palpation. Extremities: No clubbing, cyanosis, edema. Without amputations/deformities. MSK: Can sit up without dizziness. Vascular: +2 radial pulses bilaterally. Psychiatric: No signs of depression or anxiety. Labs: Please see below. Assessment: 76 year old F who presented acute unrelenting nausea and vomiting most likely secondary to gastroenteritis. Disposition: Discharge home today with follow up with PCP Dr. Dmitriy Manning within 7 days. Continue home medications. Follow-up: Recommended with PCP in 7 days. Of note, recommend PCP to reevaluate/readjust BP regimen as patient had been hypertensive in the 190s-200s systolic during hospitalization and was in need of hydralazine for BP control. Activity: No restrictions. Diet: Regular. Medications on discharge: Albuterol Sulfate 108 Mcg/Act Aer 2 puff inhaled PRN Artificial Tears 1.4% Solution OU BID PRN Budesonide/Formoterol 60 puffs/inhaler aers 2 puffs inhaled BID SOB Cholecalciferol 1000 units PO daily Docusate Sodium 100 mg capsule PO BID Furosemide 20 mg PO dialy Multivitamins (Thera M Plus) 1 tab PO daily Nebivolol 10 mg PO daily Ondansetron 4 mg tab PO q4h PRN nausea Oysco 500+D 500-200 mg Unit 1 tab PO daily Potassium Chloride 10 MEq tab PO daily Time spent on discharge: 35 minutes. Vital Signs/I&Os Vital Signs Date Time Temp Pulse Resp B/P Pulse Ox O2 Delivery O2 Flow Rate FiO2 09/30/16 08:36 64 142/82 09/30/16 06:00 98.0 17 91 Room Air I&O- Last 24 Hours up to 6 AM 09/30/16 05:59 Intake Total 1320 ml Output Total 900 ml Balance 420 ml Laboratory Data Labs 24H Laboratory Tests 2 09/30/16 05:55: Blood Urea Nitrogen 15, Creatinine 0.93, Sodium Level 142, Potassium Level 3.2L , Chloride Level 106, Carbon Dioxide Level 28, Calcium Level 8.2L, Aspartate Amino Transf (AST/SGOT) 30, Alanine Aminotransferase (ALT/SGPT) 20, Alkaline Phosphatase 87, Total Bilirubin 0.6, Total Protein 7.3, Albumin 3.3, Albumin/ Globulin Ratio 0.83L, Anion Gap 8, White Blood Count 7.3, Red Blood Count 4.18, Hemoglobin 12.8, Hematocrit 39.1, Mean Corpuscular Volume 93.5, Mean Corpuscular Hemoglobin 30.7, Mean Corpuscular Hemoglobin Concent 32.8, Red Cell Distribution Width 13.8, Platelet Count 169, Neutrophils (%) (Auto) 71.3H, Lymphocytes (%) (Auto) 16.5L, Monocytes (%) (Auto) 8.0H, Eosinophils (%) (Auto) 1.0, Basophils (%) (Auto) 0.4, Neutrophils # (Auto) 5.2, Lymphocytes # (Auto) 1.2L, Monocytes # (Auto) 0.6, Eosinophils # (Auto) 0.1, Basophils # (Auto) 0.0, Glomerular Filtration Rate > 60.0, Large Unclassified Cells # 0.2, Large Unclassified Cells % 2.8, Magnesium Level 2.1 CBC/BMP Laboratory Tests 09/30/16 05:55 Calcium Level 8.2 L, Aspartate Amino Transf (AST/SGOT) 30, Alanine Aminotransferase (ALT/SGPT) 20, Alkaline Phosphatase 87, Total Bilirubin 0.6, Total Protein 7.3, Albumin 3.3, Red Blood Count 4.18, Mean Corpuscular Volume 93.5, Mean Corpuscular Hemoglobin 30.7, Mean Corpuscular Hemoglobin Concent 32.8 , Red Cell Distribution Width 13.8, Neutrophils (%) (Auto) 71.3 H, Lymphocytes ( %) (Auto) 16.5 L, Monocytes (%) (Auto) 8.0 H, Eosinophils (%) (Auto) 1.0, Basophils (%) (Auto) 0.4, Neutrophils # (Auto) 5.2, Lymphocytes # (Auto) 1.2 L, Monocytes # (Auto) 0.6, Eosinophils # (Auto) 0.1, Basophils # (Auto) 0.0 Discharge Medications Scheduled (Oysco 500+D 500-200 mg-Unit) 1 Tab Tab 1 TAB PO DAILY (Reported) Budesonide/Formoterol (Symbicort 80-4.5 Mcg/Act) 60 Puff/Inhaler Aers 2 PUFF INH BID SHORTNESS OF BREATH (Reported) Cholecalciferol (Vitamin D) 1,000 Unit Tab 1,000 UNIT PO DAILY (Reported) Docusate Sodium (Colace) 100 Mg Cap 100 MG PO BID (Reported) Furosemide (Lasix) 20 Mg Tab 20 MG PO DAILY (Reported) Multivitamins *[facility]OCK[facility]* (Thera M Plus *[facility]*) 1 Tab Tab 1 TAB PO DAILY (Reported) Nebivolol (Bystolic) 10 Mg Tab 10 MG PO DAILY (Reported) Potassium Chloride (Klor-Con M10) 10 Meq Tabcr 10 MEQ PO DAILY (Reported) Scheduled PRN Albuterol Sulfate (Proair Hfa) 108 Mcg/Act Aer 2 PUFF INH PRN SHORTNESS OF BREATH (Reported) Artificial Tears (Artificial Tears) 1.4 % Celi 0 OU BID PRN PRN DRY EYES ( Reported) Ondansetron (Zofran Odt) 4 Mg Tab 4 MG PO Q4H PRN PRN NAUSEA (Reported) Allergies Coded Allergies: Clavulanic Acid (Verified Allergy, Unknown, 11/01/12) Codeine (Verified Allergy, Unknown, 11/01/12) Penicillins (Verified Allergy, Unknown, 11/01/12) IGNACIO EASTMANME-1 Sep 30, 2016 13:43
== END 2016-09-30 11:15 | disposition home or self-care (01) ==
LOC: EDBD 16:27 → M ED 19:10 → M ED INP 09-29 01:23 → M MSPAV 09-29 02:01
PROVIDERS: ADMIT Internal Medicine; ATTEND Internal Medicine
DX: K52.89 Other specified noninfective gastroenteritis and colitis (principal); I10 Essential (primary) hypertension; R51 Headache; E78.4 Other hyperlipidemia; M12.9 Arthropathy, unspecified; J44.9 Chronic obstructive pulmonary disease, unspecified; K44.9 Diaphragmatic hernia without obstruction or gangrene; Z79.899 Other long term (current) drug therapy
CPT/HCPCS: 36415; 70450; 74177; 80048; 80053; 80076; 82550; 82553; 83690; 83735; 84484; 85025; 93005; 93041; 94640; 94664; 94760; 96372; 96376; 97161; 99285; G0378; J1650; J2405; J2765; Q9963; Q9967

== ENCOUNTER 2017-03-26 13:47 | Inpatient (IN) | payer MEDICARE, MEDICAID ==
[~2017-03-26] VITALS: Ht 157.5 cm; Wt 74.0 kg
[~2017-03-26 13:47] MED LIST changes: +ARTI99.0 OU; +BYST10TA2 PO; +COLA100C5 PO; +LASI20TA PO; +MOME50SP; +OYSCTAB3 PO; +POTA10CA PO; +PROAAER10 INH; +SYMB80INH INH; +VITA100066 PO; +VITMTA PO; +ZOFR4TAB3 PO
[2017-03-26] MEDS ORDERED: MORPHINE 2 MG/ML 1ML SYRINGE IV ONE (14:45)
[2017-03-26 15:43] LABS: BASO % 0.4 % (0.0-1.0); EOS # 0.2 K/mm3 (0.0-0.50); EOS % 3.4 % (0.0-3.0); LARGE UNSTAINED CELL # 0.1 K/mm3 (0.0-0.4); LARGE UNSTAINED CELL % 1.6 % (0.0-4.0); LYMPH # 0.6 K/mm3 (1.5-4.5); LYMPH % 9.8 % (24.0-44.0); MEAN CORPUSCULAR HEMOGLOBIN 30.7 pg (27.0-33.0); MEAN CORPUSCULAR HGB CONC 33.2 g/dl (32.0-36.5); MEAN CORPUSCULAR VOLUME 92.7 fl (80.0-96.0); MONO # 0.3 K/mm3 (0.0-0.8); MONO % 5.7 % (0.0-5.0); NEUTROPHILS # 4.7 K/mm3 (1.8-7.7); NEUTROPHILS % 79.1 % (36.0-66.0); PLATELET COUNT, AUTOMATED 223 k/mm3 (150-450); RED CELL DISTRIBUTION WIDTH 13.4 % (11.5-14.5); WHITE BLOOD COUNT 5.9 K/mm3 (4.0-10.0)
--- NOTE | 2017-03-26 15:55 | REP ---
Right humerus: Two views. History: Trauma. Findings: Two views of the right humerus demonstrate diffuse osteopenia. There is osteoarthritis of the glenohumeral and acromioclavicular joints. No fracture is seen. Impression: No fracture noted. Signed by Ellis Maradiaga MD 03/27/2017 10:06 A
--- NOTE | 2017-03-26 15:56 | REP ---
RIGHT SHOULDER, THREE VIEWS: HISTORY: Trauma. There is no acute fracture or dislocation. There is narrowing of the glenohumeral and acromioclavicular joints. Osteophytes are present at the acromioclavicular joint. IMPRESSION: There is no acute fracture or dislocation. Signed by Hernando Fletcher MD 03/26/2017 03:58 P
--- NOTE | 2017-03-26 15:57 | REP ---
Bilateral knee series: Nine views. History: Trauma. Findings: Five views of each knee are presented. There is chondrocalcinosis and diffuse osteoporosis. There is bilateral medial compartment osteoarthritis. Some lateral compartment osteoarthritis is seen. Bilateral patellofemoral compartment narrowing and spur formation is seen. Vascular calcifications noted. Impression: No fracture seen. Signed by Ellis Maradiaga MD 03/27/2017 10:06 A
--- NOTE | 2017-03-26 15:57 | REP ---
Right forearm series: Two views. History: Trauma. Findings: AP and lateral views of the right forearm demonstrate diffuse osteopenia. There is osteoarthritis at the wrist. No fracture or subluxation is seen. Impression: No fracture noted. Signed by Ellis Maradiaga MD 03/27/2017 10:06 A
[2017-03-26 16:09] LABS: ANION GAP 5 MEQ/L (8-16); BLOOD UREA NITROGEN 14 MG/DL (7-18); CARBON DIOXIDE LEVEL 31 MEQ/L (21-32); CHLORIDE LEVEL 108 MEQ/L (98-107); CREATININE FOR GFR 0.79 MG/DL (0.55-1.02); GLOMERULAR FILTRATION RATE > 60.0 (>39); GLUCOSE, FASTING 93 MG/DL (83-110); POTASSIUM SERUM 3.9 MEQ/L (3.5-5.1); SODIUM LEVEL 144 MEQ/L (136-145)
[2017-03-26] MEDS ORDERED: ISOVUE-370 76% 100ML VIAL (Q9967) As Ordered ONE (16:15)
[2017-03-26] MEDS ORDERED: ONDANSETRON 4MG/2ML VIAL (J2405) IV ONE (16:45)
[2017-03-26] MEDS ORDERED: ONDANSETRON 4MG/2ML VIAL (J2405) As Ordered ONE (16:51)
[2017-03-26] MEDS ORDERED: NEBIVOLOL 5 MG TAB (BYSTOLIC) PO ONE (17:48)
[2017-03-26] MEDS ORDERED: LABETALOL HCL 100 MG/20 ML VIAL IV STA (19:15)
[2017-03-26] MEDS ORDERED: NITROGLYCERIN/D5W 100MCG/ML 25 MG in APPROPRIATE DILUENT 1 EA IV SCH (19:30)
[2017-03-26] MEDS ORDERED: ALKATAB24 PO (20:17)
[2017-03-26] MEDS ORDERED: KLOR1CAP2 PO (20:17)
--- NOTE | 2017-03-26 20:28 | HPEPDOC ---
General Date of Admission 03/26/2017 at 8:30PM Chief Complaint The patient is a 77-year-old female Presented to the ER after she had fallen around the [facility]. History of Present Illness Patient is a 77 year old female with a PMHx Arthritis, HTN, DLP and COPD who presented to the ER after she had fallen around the [facility]. Patient noted that she was here to see her and while she was walking she had experienced a sudden fall. She does not recall exactly what had happened. She can only remember waking up on the ground and people surrounding her. She notes that upon waking up on the ground she had complaints of right shoulder pain and right forehead pain. She notes that the pain in her right should is the worst at 8/10, aching / throbbing intensity, minor relief with the pain medications received in the ER and aggravated with movement. No radiation of her pain. She denied having any chest pain, shortness of breath, nausea, vomiting, cough, and diaphoresis. She has had a history of multiple falls in the past with similar circumstances, but never to the point of causing as much pain as today. She denied any abdominal pain, constipation, diarrhea or dysuria. Denies any fever or chills. Home Medications Scheduled (Oysco 500+D 500-200 mg-Unit) 1 Tab Tab, 1 TAB PO DAILY, (Reported) (Klor-Con Sprinkle) 10 Meq Cap, 10 MEQ PO DAILY, (Reported) (Marge-[place] Plus Night C 7.8-6.25-10-500 mg) 1 Tab Tab, 2 TAB PO QHS, ( Reported) Cholecalciferol (Vitamin D) 1,000 Unit Tab, 1,000 UNIT PO DAILY, (Reported) Multivitamins *[facility] STOCK[facility]* (Thera M Plus *[facility]OCK[facility]*) 1 Tab Tab, 1 TAB PO DAILY, (Reported) Nebivolol (Bystolic) 10 Mg Tab, 10 MG PO DAILY, (Reported) Scheduled PRN Albuterol Sulfate (Proair Hfa) 108 Mcg/Act Aer, 2 PUFF INH Q4H PRN for SHORTNESS OF BREATH, (Reported) Artificial Tears (Artificial Tears) 1.4 % Celi, 1 DROP OU QID PRN for DRY EYES, ( Reported) Budesonide/Formoterol (Symbicort 80-4.5 Mcg/Act) 60 Puff/Inhaler Aers, 2 PUFF INH BID PRN for SHORTNESS OF BREATH, (Reported) Furosemide (Lasix) 20 Mg Tab, 20 MG PO DAILY PRN for EDEMA, (Reported) PATIENT ALSO WILL NOT TAKE MEDICATION IF GOING OUT Allergies Coded Allergies: Clavulanic Acid (Verified Allergy, Unknown, 11/01/12) Penicillins (Verified Allergy, Unknown, 11/01/12) Codeine (Verified Adverse Reaction, Mild, NAUSEA, 03/26/17) Past Medical History Medical History Arthritis, HTN, DLP and COPD Surgical History Appendectomy Hysterectomy Right total hip replacement Family History - Non-contributory Social History - Denies the use of alcohol or illicit drugs; Quit smoking 40 years ago; smoked for 20 years at 0.5ppd - Denies recent travel or sick contacts - Lives with - Occupation; Retired from [employer] Review of Symptoms Other systems 10 point review of systems complete; negative otherwise stated in HPI Vital Signs - Vitals: BP 221/87, HR 73, RR 18, Sat 94%RA, Temp 96.6F - General: Lying in bed, No acute distress, Speaking in full sentences, AAOx3 - HEENT: NC, AT, PERRLA, EOMI - CVS: RRR, +S1S2 - Lungs: Fair air entry bilaterally, Clear to auscultation, No wheezing / rales / rhonchi - Abdomen: Soft, Non-distended, Non-tender - Extremities: No lower extremity edema, No calf tenderness - Neuro: No focal motor or sensory deficit; decreased movement of right upper arm 2/2 pain - Skin: No visible rashes Laboratory Data Labs 24H Laboratory Tests 2 03/26/17 15:30: White Blood Count 5.9, Red Blood Count 4.13, Hemoglobin 12.7, Hematocrit 38.3, Mean Corpuscular Volume 92.7, Mean Corpuscular Hemoglobin 30.7, Mean Corpuscular Hemoglobin Concent 33.2, Red Cell Distribution Width 13.4, Platelet Count 223, Neutrophils (%) (Auto) 79.1H, Lymphocytes (%) (Auto) 9.8L, Monocytes (%) (Auto) 5.7H, Eosinophils (%) (Auto) 3.4H, Basophils (%) (Auto) 0.4, Neutrophils # (Auto) 4.7, Lymphocytes # (Auto) 0.6L, Monocytes # (Auto) 0.3, Eosinophils # (Auto) 0.2, Basophils # (Auto) 0.0, Large Unclassified Cells % 1.6 , Large Unclassified Cells # 0.1, Anion Gap 5L, Glomerular Filtration Rate > 60.0, Blood Urea Nitrogen 14, Creatinine 0.79, Sodium Level 144, Potassium Level 3.9, Chloride Level 108H, Carbon Dioxide Level 31, Calcium Level 9.0, Total Creatine Kinase 91, Creatine Kinase MB 1.4, Creatine Kinase MB Relative Index 1.53, Troponin I < 0.02 03/26/17 19:52: CBC/BMP Laboratory Tests 03/26/17 15:30 Red Blood Count 4.13, Mean Corpuscular Volume 92.7, Mean Corpuscular Hemoglobin 30.7, Mean Corpuscular Hemoglobin Concent 33.2, Red Cell Distribution Width 13.4 , Neutrophils (%) (Auto) 79.1 H, Lymphocytes (%) (Auto) 9.8 L, Monocytes (%) ( Auto) 5.7 H, Eosinophils (%) (Auto) 3.4 H, Basophils (%) (Auto) 0.4, Neutrophils # (Auto) 4.7, Lymphocytes # (Auto) 0.6 L, Monocytes # (Auto) 0.3, Eosinophils # (Auto) 0.2, Basophils # (Auto) 0.0, Calcium Level 9.0, Total Creatine Kinase 91 Plan / VTE VTE Prophylaxis Ordered?: Yes Plan Plan Syncope - possibly 2/2 vasovagal episode, possibly 2/2 arrhythmia, possibly 2/2 orthostatic hypotension - Presented after she had fallen while walking to [employer] - No evidence of seizure activity - Multiple instances of this as an outpatient - Physical with severe right shoulder pain - Unofficial imaging after fall reveals Right humeral head fracture - Unofficial imaging, CT Head and Cervical spine are negative for any acute pathology - Labs within normal limits - Will check ECHO, will keep on PCU monitoring, will trend cardiac enzymes - Will check orthostatic vital signs Hypertensive Emergency - BP was noted to be SBP >200s in ER, possibly 2/2 pain and non-compliance with medications - She notes her BP in an outpatient setting has been elevated - Forgot to take medications this morning - Will c/w Labetolol 10 IV q6h - Will c/w Home Nebivolol for bridging; Will hold Furosemide 20 PO daily Right humerus fracture - Notes significant pain in right shoulder after waking up from fall - Physical with significantly reduced ROM - Imaging; unofficially noted to have impacted humeral head fracture - Will consult orthopedic surgery - Paul c/w pain control with morphine in interim COPD - no evidence of exacerbation at this time - c/w Albuterol PRN and Symbicort Arthritis - c/w Tylenol PRN DLP - c/w DVT prophylaxis - Will start Lovenox CLINTON LARRY MD Mar 26, 2017 20:28
[2017-03-26] MEDS ORDERED: POLYVINYL ALCOHOL OPHTH SOLN 15 ML(LIQUITEARS) OU PRN (20:30)
[2017-03-26] MEDS ORDERED: ALBUTEROL 90 MCG/ACT 8GM HFA INHALER INH PRN (20:30)
[2017-03-26 20:51] LABS: FOLATE 18.9 NG/ML (>5.4); VITAMIN B12 LEVEL 445 PG/ML (247-911)
[2017-03-26] MEDS: MORPHINE 2 MG/ML 1ML SYRINGE IV PRN ×2 (20:51→23:32)
[2017-03-26] MEDS: SYMBICORT 80/4.5MCG INHALER 6GM INH SCH (23:29)
[2017-03-27] VITALS (12 sets, daily range): BP systolic 108–207; BP diastolic 78–111
[2017-03-27] MEDS: ONDANSETRON 4MG/2ML VIAL (J2405) IV PRN ×3 (00:09→17:00)
[2017-03-27] MEDS ORDERED: LABETALOL HCL 100 MG/20 ML VIAL IV SCH ×2 (01:00→06:00)
[2017-03-27] MEDS: MORPHINE 2 MG/ML 1ML SYRINGE IV PRN ×2 (04:02→08:36)
[2017-03-27 05:24] LABS: BASO % 0.2 % (0.0-1.0); EOS % 0.1 % (0.0-3.0); LARGE UNSTAINED CELL # 0.1 K/mm3 (0.0-0.4); LARGE UNSTAINED CELL % 0.7 % (0.0-4.0); LYMPH # 0.5 K/mm3 (1.5-4.5); LYMPH % 5.2 % (24.0-44.0); MEAN CORPUSCULAR HEMOGLOBIN 31.6 pg (27.0-33.0); MEAN CORPUSCULAR HGB CONC 34.5 g/dl (32.0-36.5); MEAN CORPUSCULAR VOLUME 91.7 fl (80.0-96.0); MONO # 0.4 K/mm3 (0.0-0.8); MONO % 4.3 % (0.0-5.0); NEUTROPHILS # 7.5 K/mm3 (1.8-7.7); NEUTROPHILS % 89.4 % (36.0-66.0); PLATELET COUNT, AUTOMATED 203 k/mm3 (150-450); RED CELL DISTRIBUTION WIDTH 13.7 % (11.5-14.5); WHITE BLOOD COUNT 8.4 K/mm3 (4.0-10.0)
[2017-03-27 05:49] LABS: MAGNESIUM LEVEL 2.1 MG/DL (1.8-2.4)
[2017-03-27 07:23] LABS: ALBUMIN 3.2 GM/DL (3.2-5.2); ALBUMIN/GLOBULIN RATIO 0.82 (1.00-1.93); ALKALINE PHOSPHATASE 71 U/L (45-117); ALT/SGPT 16 U/L (12-78); ANION GAP 9 MEQ/L (8-16); AST/SGOT 18 U/L (15-37); BILIRUBIN,TOTAL 0.3 MG/DL (0.2-1.0); BLOOD UREA NITROGEN 14 MG/DL (7-18); CALCIUM LEVEL 8.2 MG/DL (8.8-10.2); CARBON DIOXIDE LEVEL 27 MEQ/L (21-32); CHLORIDE LEVEL 106 MEQ/L (98-107); CREATININE FOR GFR 0.91 MG/DL (0.55-1.02); GLOMERULAR FILTRATION RATE > 60.0 (>39); GLUCOSE, FASTING 127 MG/DL (83-110); SODIUM LEVEL 142 MEQ/L (136-145); TOTAL PROTEIN 7.1 GM/DL (6.4-8.2)
--- NOTE | 2017-03-27 08:15 | ECGEPIP ---
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
[2017-03-27] MEDS: MULTIVITAMINS/MINERALS THERAP 1 TAB PO SCH (08:33)
[2017-03-27] MEDS: VITAMIN D 1,000 INTERNATIONAL UNITS TABLET PO SCH (08:33)
[2017-03-27] MEDS: POTASSIUM CHLORIDE 10 MEQ SR TABLET PO SCH (08:33)
[2017-03-27] MEDS: ENOXAPARIN 40 MG/0.4 ML SYRINGE (J1650) SC SCH (08:34)
[2017-03-27] MEDS: NEBIVOLOL 5 MG TAB (BYSTOLIC) PO SCH (08:34)
[2017-03-27] MEDS ORDERED: LISINOPRIL 10 MG TAB PO SCH (09:00)
[2017-03-27] MEDS: SYMBICORT 80/4.5MCG INHALER 6GM INH SCH ×2 (09:00→20:36)
--- NOTE | 2017-03-27 10:33 | CR ---
DATE OF CONSULTATION: 03/27/2017 CHIEF COMPLAINT: Fall with right shoulder pain. HISTORY OF PRESENT ILLNESS: This is a pleasant, 77-year-old female who was visiting her in the hospital and suffered a hypertensive urgency syncopal episode and was noted to have suffered a right proximal humerus fracture. Orthopedics was consulted. On presenting to her room, she was complaining of 10/10 right shoulder pain. She denied any paraesthesia of the right upper extremity. ALLERGIES: CLAVULANIC ACID, CODEINE and PENICILLIN. CURRENT MEDICATIONS: Please refer to the medical record. PAST MEDICAL HISTORY: Please refer to the medical record. PAST SURGICAL HISTORY: Please refer to the medical record. 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 FAMILY HISTORY: Noncontributory. REVIEW OF SYSTEMS: The patient is complaining of persistent pain in the right shoulder with decreased range of motion. PHYSICAL EXAMINATION: General: Heidy is alert and oriented times three. She is a pleasant, 77-year-old female. She was noted to have some ecchymosis on her chin with some slight tenderness to palpation without deformity. Otherwise, normocephalic, atraumatic. Lungs are clear to auscultation. Heart: Regular rate and rhythm. Inspection of the shoulder revealed edema diffusely. Diffuse tenderness to palpation. Range of motion was not assessed. The patient had discomfort with elbow range of motion but did have good elbow range of motion. Discomfort was arising from the shoulder. She showed intact sensation to light touch through the hand with brisk capillary refill. She had good function of her digits and was able to her walker fingers and make a good fist. IMAGES: Her right shoulder series was reviewed and she was noted to have a minimally displaced greater tuberosity fracture. Also moderate AC joint degenerative joint disease and moderate glenohumeral joint degenerative joint disease. Otherwise, no further fractures or bony lesions seen. IMPRESSION: Minimally displaced greater tuberosity fracture of the right proximal humerus. PLAN: The patient was in a sling upon arrival. We discontinued the sling and comfort improved. A cuff and collar was fashioned from the Velcro straps of her sling. She was more comfortable at this point. An ice pack was placed on the shoulder with her gown used as a skin barrier. Noel Fink's office will be contacted and consulted for a Rory-cuff and collar device. The patient will followup in our office within 3-5 days with a physician chemistry research assistant for further evaluation. The patient communicated understanding and agrees with the plan.
[2017-03-27] MEDS: LABETALOL HCL 100 MG/20 ML VIAL IV SCH ×2 (12:24→18:00)
[2017-03-27] MEDS: PERCOCET 5MG/325MG TAB PO PRN ×2 (12:25→18:09)
--- NOTE | 2017-03-27 14:59 | REP ---
CT BRAIN WITHOUT IV CONTRAST: CT brain is performed without IV contrast. There is moderate atrophy. There is no midline shift. There are periventricular small vessel ischemic changes in the white matter which appear similar to the prior study of 09/28/2016. There is no intracranial hemorrhage or extra-axial fluid collection. No skull fracture is seen. There are vascular calcifications in the carotid siphons. IMPRESSION: No evidence of acute bleed or fracture. Signed by Erik Nj MD 03/27/2017 04:02 P
--- NOTE | 2017-03-27 15:02 | REP ---
CT CERVICAL SPINE: CT cervical spine is performed in the axial plane with sagittal and coronal reconstruction images. There is no fracture or dislocation. Vertebral bodies are normal in height and are well aligned with normal cervical lordosis. There is no prevertebral soft tissue swelling. There is spurring and disc space narrowing at C5-6 and C6-7 with mild subchondral sclerosis. There is narrowing, sclerosis and spurring at the interval between the dens and anterior ring of C1. IMPRESSION: Degenerative changes without fracture or dislocation. Signed by Erik Nj MD 03/27/2017 04:02 P
--- NOTE | 2017-03-27 15:03 | REP ---
CT CHEST WITH IV CONTRAST: TECHNIQUE: Axial contrast enhanced images from the thoracic inlet to the upper abdomen using 100 mL Isovue 370 intravenous contrast material with multiplanar reformations. Both lungs show scattered interstitial fibrotic change without other acute abnormalities. Thoracic aorta demonstrates mild scattered atherosclerotic calcification without aneurysm or dissection. Heart is normal in size. There is no pleural or pericardial effusion. No adenopathy is seen in the chest. Evaluation of the osseous structures demonstrates degenerative change of the spine diffusely. There is an impacted right humeral head fracture. No other fracture seen of the visualized osseous structures. IMPRESSION: Impacted right humeral head fracture. No other traumatic finding in the chest. Signed by Erik Nj MD 03/27/2017 04:02 P
--- NOTE | 2017-03-27 15:10 | REP ---
CT ABDOMEN/PELVIS WITH IV CONTRAST: TECHNIQUE: Axial contrast enhanced images from the lung bases to the pubic symphysis using 100 mL Isovue 370 intravenous contrast material with multiplanar reformations. The liver, spleen, right adrenal, pancreas, and kidneys are unremarkable with no visceral organ injury. There is a left adrenal adenoma, which is stable compared to prior studies. There is no abdominal aortic aneurysm. There is no adenopathy. There is no free air or free fluid. There is no bowel wall thickening. Small umbilical hernia is seen containing fat. There is sigmoid diverticulosis. Metallic right hip prosthesis is noted with streak artifact partially obscuring right pelvic structures. There are also multiple screws in the lumbar spine, status post posterior fusion surgery and laminectomy in this region. I see no acute fracture of the visualized osseous structures. IMPRESSION: No acute abnormalities detected, as discussed in detail above. Signed by Erik Nj MD 03/27/2017 04:02 P
[2017-03-27] MEDS: LISINOPRIL 10 MG TAB PO SCH (22:25)
--- NOTE | 2017-03-27 22:47 | IPNPDOC ---
Subjective Date Seen The patient was seen on 03/27/17. Subjective Chief Complaint/HPI The patient is a 77-year-old female admitted with a reason for visit of Hypertensive Urgency. Pt examined at bedside. Per nursing, pt was crying and made comments about wanting to and praying every night that she does not wake up in the morning. Per nursing, she is distressed about her health, as well as 's prognosis who is also currently in the hospital long-term. When I discussed this with the patient, she was evasive and also tired, falling asleep mid- conversation. She expressed that she is worried about her pain and her and the overall situation. Support was given and pt reassured. Pt denies having lost consciousness, blacking out, prodrome symptoms, or tripping over object during original fall. She states she is trying to block out the memory of the fall. Currently reports severe right arm pain, b/l knee pain, nausea, and noted to be vomiting during exam. Denies blood in vomit. Denies fever, chills, paresthesia, loss of sensation. Has headache. Denies vision change, tinnitus, numbness. General: Reports: Normal Appetite Constitutional: Denies: Chills, Fever Eyes: Denies: Pain, Vision change ENT: Reports: Head Aches, Denies: Dysphagia Pulmonary: Denies: Dyspnea, Cough Cardiovascular: Denies: Chest Pain, Palpitations, Edema, Lt Headedness Gastrointestinal: Reports: Nausea, Vomiting, Denies: Abdominal Pain, Diarrhea, Constipation, Melena, Hematochezia Genitourinary: Denies: Hematuria Hematologic: Denies: Bleeding Excessively Musculoskeletal: Reports: Shoulder Pain (right shoulder), Arm Pain (right arm) , Leg Pain (b/l knees sore) Neurological: Denies: Weakness, Numbness, Confusion Psych: Reports: Mood Normal Objective Physical Examination General Exam: Positive: Alert, Cooperative, Mild Distress (pain, vomiting) Eye Exam: Positive: PERRLA, Conjunctiva & lids normal, EOMI ENT Exam: Positive: Mucous membr. moist/pink Neck Exam: Positive: Supple, Negative: JVD Chest Exam: Positive: Clear to auscultation, Normal air movement, Negative: Rales, Rhonchi, Wheezing Heart Exam: Positive: Rate Normal, Regular Rhythm, Normal S1, Normal S2 Abdomen Exam: Positive: Normal bowel sounds, Soft, Negative: Tenderness Extremity Exam: Positive: Normal pulses, Negative: Cyanosis, Edema, Swelling Skin Exam: Positive: Nl turgor and temperature Neuro Exam: Positive: Normal Gait (requiring assistance to move due to pain), Normal Speech, Strength at 5/5 X4 ext (weakness due to pain in right upper extremity and b/l lower extremities), Sensation Intact Psych Exam: Positive: Mental status NL, Mood NL, Memory Intact, Oriented x 3 Assessment /Plan Assessment s/p fall -Imaging: all negative, except Chest CT showing "Impacted right humeral head fracture. No other traumatic finding in the chest" -ortho consulted. Appreciate their input -right arm in sling -pain: N/V on Morphine. Switched to Percocet -PT eval -Envelope Folding Machine Operator consulted -Upon admission: EKG in NSR and cardiac markers negative Hypertensive Urgency -bp remains elevated ~170s/100s, attributable to pain and noncompliance -continue home med Nebivolol. Continue holding Furosemide -Lisinopril 10mg made bid. Supplemented with Lebatolol 10mg COPD -Symbicort, Proventil Arthritis -Tylenol prn DVT prophylaxis -Lovenox Plan/VTE VTE Prophylaxis Ordered?: Yes VS, I&O, 24H, Fishbone Vital Signs/I&O Vital Signs Date Time Temp Pulse Resp B/P (MAP) Pulse Ox O2 Delivery O2 Flow Rate FiO2 03/27/17 08:46 20 Room Air 03/27/17 08:36 77 170/90 03/27/17 08:00 97.6 94 I&O- Last 24 Hours up to 6 AM 03/27/17 06:00 Intake Total 240 ml Balance 240 ml Laboratory Data 24H LABS Laboratory Tests 2 03/26/17 15:30: White Blood Count 5.9, Red Blood Count 4.13, Hemoglobin 12.7, Hematocrit 38.3, Mean Corpuscular Volume 92.7, Mean Corpuscular Hemoglobin 30.7, Mean Corpuscular Hemoglobin Concent 33.2, Red Cell Distribution Width 13.4, Platelet Count 223, Neutrophils (%) (Auto) 79.1H, Lymphocytes (%) (Auto) 9.8L, Monocytes (%) (Auto) 5.7H, Eosinophils (%) (Auto) 3.4H, Basophils (%) (Auto) 0.4, Neutrophils # (Auto) 4.7, Lymphocytes # (Auto) 0.6L, Monocytes # (Auto) 0.3, Eosinophils # (Auto) 0.2, Basophils # (Auto) 0.0, Large Unclassified Cells % 1.6 , Large Unclassified Cells # 0.1, Anion Gap 5L, Glomerular Filtration Rate > 60.0, Blood Urea Nitrogen 14, Creatinine 0.79, Sodium Level 144, Potassium Level 3.9, Chloride Level 108H, Carbon Dioxide Level 31, Calcium Level 9.0, Total Creatine Kinase 91, Creatine Kinase MB 1.4, Creatine Kinase MB Relative Index 1.53, Troponin I < 0.02 03/26/17 19:52: Total Creatine Kinase 83, Creatine Kinase MB 1.4, Creatine Kinase MB Relative Index 1.68, Troponin I < 0.02, Estimated Mean Plasma Glucose 100, Hemoglobin A1c 5.1, Vitamin B12 Level 445, Folate 18.9, Thyroid Stimulating Hormone (TSH) 1.090 03/27/17 04:42: White Blood Count 8.4, Red Blood Count 3.76L, Hemoglobin 11.9L, Hematocrit 34.5L , Mean Corpuscular Volume 91.7, Mean Corpuscular Hemoglobin 31.6, Mean Corpuscular Hemoglobin Concent 34.5, Red Cell Distribution Width 13.7, Platelet Count 203, Neutrophils (%) (Auto) 89.4H, Lymphocytes (%) (Auto) 5.2L, Monocytes (%) (Auto) 4.3, Eosinophils (%) (Auto) 0.1, Basophils (%) (Auto) 0.2, Neutrophils # (Auto) 7.5, Lymphocytes # (Auto) 0.5L, Monocytes # (Auto) 0.4, Eosinophils # (Auto) 0.0, Basophils # (Auto) 0.0, Large Unclassified Cells % 0.7 , Large Unclassified Cells # 0.1, Anion Gap 9, Glomerular Filtration Rate > 60.0 , Blood Urea Nitrogen 14, Creatinine 0.91, Sodium Level 142, Potassium Level 4.0 , Chloride Level 106, Carbon Dioxide Level 27, Calcium Level 8.2L, Total Creatine Kinase 71, Creatine Kinase MB 1.0, Creatine Kinase MB Relative Index 1.40, Troponin I < 0.02, Aspartate Amino Transf (AST/SGOT) 18, Alanine Aminotransferase (ALT/SGPT) 16, Alkaline Phosphatase 71, Total Bilirubin 0.3, Total Protein 7.1, Albumin 3.2, Magnesium Level 2.1, Albumin/Globulin Ratio 0.82L CBC/BMP Laboratory Tests 03/26/17 15:30 Red Blood Count 4.13, Mean Corpuscular Volume 92.7, Mean Corpuscular Hemoglobin 30.7, Mean Corpuscular Hemoglobin Concent 33.2, Red Cell Distribution Width 13.4 , Neutrophils (%) (Auto) 79.1 H, Lymphocytes (%) (Auto) 9.8 L, Monocytes (%) ( Auto) 5.7 H, Eosinophils (%) (Auto) 3.4 H, Basophils (%) (Auto) 0.4, Neutrophils # (Auto) 4.7, Lymphocytes # (Auto) 0.6 L, Monocytes # (Auto) 0.3, Eosinophils # (Auto) 0.2, Basophils # (Auto) 0.0, Calcium Level 9.0, Total Creatine Kinase 91 03/27/17 04:42 Red Blood Count 3.76 L, Mean Corpuscular Volume 91.7, Mean Corpuscular Hemoglobin 31.6, Mean Corpuscular Hemoglobin Concent 34.5, Red Cell Distribution Width 13.7, Neutrophils (%) (Auto) 89.4 H, Lymphocytes (%) (Auto) 5.2 L, Monocytes (%) (Auto) 4.3, Eosinophils (%) (Auto) 0.1, Basophils (%) (Auto ) 0.2, Neutrophils # (Auto) 7.5, Lymphocytes # (Auto) 0.5 L, Monocytes # (Auto) 0.4, Eosinophils # (Auto) 0.0, Basophils # (Auto) 0.0, Calcium Level 8.2 L, Total Creatine Kinase 71, Aspartate Amino Transf (AST/SGOT) 18, Alanine Aminotransferase (ALT/SGPT) 16, Alkaline Phosphatase 71, Total Bilirubin 0.3, Total Protein 7.1, Albumin 3.2 GME ATTESTATION GME ATTESTATION My preceptor for this patient encounter was physically present in the building during the encounter and was fully available. As needed, all aspects of the patient interview, examination, medical decision making process, and medical care plan development were reviewed and approved by the preceptor. Preceptor is aware and concurs with the plan as stated in the body of this note and will attest to such by his/her cosignature. ROSANNA VAZQUEZ DO Mar 27, 2017 10:54
[2017-03-28] VITALS (12 sets, daily range): BP systolic 142–178; BP diastolic 75–92
[2017-03-28] MEDS: LABETALOL HCL 100 MG/20 ML VIAL IV SCH ×4 (00:34→18:26)
[2017-03-28] MEDS: ONDANSETRON 4MG/2ML VIAL (J2405) IV PRN ×4 (05:17→18:25)
[2017-03-28] MEDS: PERCOCET 5MG/325MG TAB PO PRN ×5 (05:18→23:33)
[2017-03-28 07:39] LABS: BASO % 0.1 % (0.0-1.0); EOS % 0.2 % (0.0-3.0); LARGE UNSTAINED CELL # 0.1 K/mm3 (0.0-0.4); LARGE UNSTAINED CELL % 0.8 % (0.0-4.0); LYMPH # 0.6 K/mm3 (1.5-4.5); MEAN CORPUSCULAR HEMOGLOBIN 30.2 pg (27.0-33.0); MEAN CORPUSCULAR HGB CONC 33.2 g/dl (32.0-36.5); MEAN CORPUSCULAR VOLUME 90.9 fl (80.0-96.0); MONO # 0.6 K/mm3 (0.0-0.8); MONO % 5.9 % (0.0-5.0); PLATELET COUNT, AUTOMATED 192 k/mm3 (150-450); RED CELL DISTRIBUTION WIDTH 13.8 % (11.5-14.5); WHITE BLOOD COUNT 9.2 K/mm3 (4.0-10.0)
[2017-03-28] MEDS: SYMBICORT 80/4.5MCG INHALER 6GM INH SCH ×2 (07:41→20:03)
[2017-03-28 08:02] LABS: ANION GAP 7 MEQ/L (8-16); BLOOD UREA NITROGEN 20 MG/DL (7-18); CALCIUM LEVEL 8.4 MG/DL (8.8-10.2); CARBON DIOXIDE LEVEL 28 MEQ/L (21-32); CHLORIDE LEVEL 105 MEQ/L (98-107); CREATININE FOR GFR 0.84 MG/DL (0.55-1.02); GLOMERULAR FILTRATION RATE > 60.0 (>39); GLUCOSE, FASTING 110 MG/DL (83-110); MAGNESIUM LEVEL 2.1 MG/DL (1.8-2.4); POTASSIUM SERUM 3.6 MEQ/L (3.5-5.1); SODIUM LEVEL 140 MEQ/L (136-145)
[2017-03-28] MEDS: POTASSIUM CHLORIDE 10 MEQ SR TABLET PO SCH (09:06)
[2017-03-28] MEDS: LISINOPRIL 10 MG TAB PO SCH ×2 (09:06→23:32)
[2017-03-28] MEDS: NEBIVOLOL 5 MG TAB (BYSTOLIC) PO SCH (09:06)
[2017-03-28] MEDS: VITAMIN D 1,000 INTERNATIONAL UNITS TABLET PO SCH (09:07)
[2017-03-28] MEDS: MULTIVITAMINS/MINERALS THERAP 1 TAB PO SCH (09:07)
[2017-03-28] MEDS: ENOXAPARIN 40 MG/0.4 ML SYRINGE (J1650) SC SCH (09:07)
--- NOTE | 2017-03-28 09:51 | IPNPDOC ---
Subjective Date Seen The patient was seen on 03/28/17. Subjective Chief Complaint/HPI The patient is a 77-year-old female admitted with a reason for visit of Hypertensive Urgency. Patient seen and examined at bedside. No acute complaints. No reported events overnight. Patient states that she is not sleeping well due to the pain. States pain is controlled and same as yesterday. Has an appetite, but is afraid that she will vomit if she eats. Is enthusiastic about attempting a full diet today. Nausea and vomiting is controlled, no recent episodes. Pain in right shoulder and arm and forehead is still same as yesterday. No depressive thoughts today. Denies paresthesia or vision change. Constitutional: Denies: Chills, Fever Eyes: Denies: Pain, Vision change ENT: Reports: Head Aches, Denies: Dysphagia Pulmonary: Denies: Dyspnea Cardiovascular: Denies: Chest Pain, Palpitations, Edema, Lt Headedness Gastrointestinal: Denies: Nausea, Vomiting, Abdominal Pain, Diarrhea, Constipation Musculoskeletal: Reports: Shoulder Pain (rt shoulder), Arm Pain (rt arm) Neurological: Denies: Weakness, Numbness, Confusion Psych: Denies: Depression Objective Physical Examination General Exam: Positive: Alert, Cooperative, No Acute Distress, Negative: Mild Distress Eye Exam: Positive: PERRLA, Conjunctiva & lids normal, EOMI ENT Exam: Positive: Mucous membr. moist/pink Neck Exam: Positive: Supple, Negative: JVD, Lymphadenopathy Chest Exam: Positive: Clear to auscultation, Normal air movement, Negative: Rales, Rhonchi, Wheezing Heart Exam: Positive: Rate Normal, Regular Rhythm, Normal S1, Normal S2 Abdomen Exam: Positive: Normal bowel sounds, Soft, Negative: Tenderness Extremity Exam: Positive: Normal pulses, Negative: Cyanosis, Edema, Swelling Skin Exam: Positive: Nl turgor and temperature Neuro Exam: Positive: Normal Speech, Sensation Intact, Negative: Strength at 5/5 X4 ext (weakness due to pain in right upper extremity and b/l lower extremities) Psych Exam: Positive: Mental status NL, Mood NL, Memory Intact, Oriented x 3 Assessment /Plan Assessment s/p fall -orthostatics negative today, positive 03/27/17. Pt asymptomatic and denies dizziness, lightheadedness. Fluid hydration. Monitor -pain: pt tolerating Percocet better than Morphine. Continue -Imaging: all negative, except Chest CT showing "Impacted right humeral head fracture. No other traumatic finding in the chest" -ortho consulted. Appreciate their input -right arm in sling -PT eval -Hook And Eye Attacher consulted Hypertensive Urgency -bp coming down, now ~160s/90s, attributable to pain and noncompliance -home med Nebivolol, Lisinopril, Labetalol. Continue holding Furosemide COPD -Symbicort, Proventil Arthritis -Tylenol prn DVT prophylaxis -Lovenox Plan/VTE VTE Prophylaxis Ordered?: Yes VS, I&O, 24H, Fishbone Vital Signs/I&O Vital Signs Date Time Temp Pulse Resp B/P (MAP) Pulse Ox O2 Delivery O2 Flow Rate FiO2 03/28/17 07:13 72 160/92 (114) 85 150/88 (108) 89 142/86 (104) 03/28/17 05:48 98.7 20 93 Room Air I&O- Last 24 Hours up to 6 AM 03/28/17 06:00 Intake Total 360 ml Output Total 525 ml Balance -165 ml Laboratory Data 24H LABS Laboratory Tests 2 03/27/17 11:17: Total Creatine Kinase 67, Creatine Kinase MB 1.2, Creatine Kinase MB Relative Index 1.79, Troponin I < 0.02 03/28/17 07:09: White Blood Count 9.2, Red Blood Count 3.70L, Hemoglobin 11.2L, Hematocrit 33.7L , Mean Corpuscular Volume 90.9, Mean Corpuscular Hemoglobin 30.2, Mean Corpuscular Hemoglobin Concent 33.2, Red Cell Distribution Width 13.8, Platelet Count 192, Neutrophils (%) (Auto) 87.0H, Lymphocytes (%) (Auto) 6.0L, Monocytes (%) (Auto) 5.9H, Eosinophils (%) (Auto) 0.2, Basophils (%) (Auto) 0.1, Neutrophils # (Auto) 8.0H, Lymphocytes # (Auto) 0.6L, Monocytes # (Auto) 0.6, Eosinophils # (Auto) 0.0, Basophils # (Auto) 0.0, Large Unclassified Cells % 0.8 , Large Unclassified Cells # 0.1 CBC/BMP Laboratory Tests 03/28/17 07:09 Red Blood Count 3.70 L, Mean Corpuscular Volume 90.9, Mean Corpuscular Hemoglobin 30.2, Mean Corpuscular Hemoglobin Concent 33.2, Red Cell Distribution Width 13.8, Neutrophils (%) (Auto) 87.0 H, Lymphocytes (%) (Auto) 6.0 L, Monocytes (%) (Auto) 5.9 H, Eosinophils (%) (Auto) 0.2, Basophils (%) ( Auto) 0.1, Neutrophils # (Auto) 8.0 H, Lymphocytes # (Auto) 0.6 L, Monocytes # ( Auto) 0.6, Eosinophils # (Auto) 0.0, Basophils # (Auto) 0.0 GME ATTESTATION GME ATTESTATION My preceptor for this patient encounter was physically present in the building during the encounter and was fully available. As needed, all aspects of the patient interview, examination, medical decision making process, and medical care plan development were reviewed and approved by the preceptor. Preceptor is aware and concurs with the plan as stated in the body of this note and will attest to such by his/her cosignature. ROSANNA VAZQUEZ DO Mar 28, 2017 07:54
[2017-03-29] MEDS: LABETALOL HCL 100 MG/20 ML VIAL IV SCH
[2017-03-29] MEDS ORDERED: LISINOPRIL 10 MG TAB PO ONE (02:00)
[2017-03-29] MEDS: PERCOCET 5MG/325MG TAB PO PRN ×4 (03:51→23:41)
[2017-03-29 04:14] LABS: BASO % 0.3 % (0.0-1.0); EOS # 0.1 K/mm3 (0.0-0.50); EOS % 1.2 % (0.0-3.0); LARGE UNSTAINED CELL # 0.1 K/mm3 (0.0-0.4); LARGE UNSTAINED CELL % 1.3 % (0.0-4.0); LYMPH # 0.8 K/mm3 (1.5-4.5); MEAN CORPUSCULAR HEMOGLOBIN 30.7 pg (27.0-33.0); MEAN CORPUSCULAR HGB CONC 33.8 g/dl (32.0-36.5); MONO # 0.7 K/mm3 (0.0-0.8); MONO % 7.3 % (0.0-5.0); NEUTROPHILS # 7.9 K/mm3 (1.8-7.7); NEUTROPHILS % 82.9 % (36.0-66.0); PLATELET COUNT, AUTOMATED 206 k/mm3 (150-450); RED CELL DISTRIBUTION WIDTH 13.7 % (11.5-14.5); WHITE BLOOD COUNT 9.5 K/mm3 (4.0-10.0)
[2017-03-29 04:32] LABS: ANION GAP 5 MEQ/L (8-16); BLOOD UREA NITROGEN 18 MG/DL (7-18); CALCIUM LEVEL 8.5 MG/DL (8.8-10.2); CARBON DIOXIDE LEVEL 29 MEQ/L (21-32); CHLORIDE LEVEL 102 MEQ/L (98-107); CREATININE FOR GFR 0.83 MG/DL (0.55-1.02); GLOMERULAR FILTRATION RATE > 60.0 (>39); GLUCOSE, FASTING 113 MG/DL (83-110); MAGNESIUM LEVEL 2.3 MG/DL (1.8-2.4); POTASSIUM SERUM 3.4 MEQ/L (3.5-5.1); SODIUM LEVEL 136 MEQ/L (136-145)
[2017-03-29 06:03] VITALS: BP_SYST 140; BP_SYST 164; BP_SYST 170; BP_DIAS 70; BP_DIAS 90; BP_DIAS 92
[2017-03-29] MEDS: SYMBICORT 80/4.5MCG INHALER 6GM INH SCH ×2 (07:36→20:15)
[2017-03-29 08:00] VITALS: BP 161/88
[2017-03-29] MEDS ORDERED: LISINOPRIL 10 MG TAB PO SCH (09:00)
[2017-03-29] MEDS: POTASSIUM CHLORIDE 10 MEQ SR TABLET PO SCH (09:32)
[2017-03-29] MEDS: NEBIVOLOL 5 MG TAB (BYSTOLIC) PO SCH (09:32)
[2017-03-29] MEDS: VITAMIN D 1,000 INTERNATIONAL UNITS TABLET PO SCH (09:32)
[2017-03-29] MEDS: MULTIVITAMINS/MINERALS THERAP 1 TAB PO SCH (09:32)
[2017-03-29] MEDS: ACETAMINOPHEN TAB 650MG DOSE (2X325MG) PO PRN (09:33)
[2017-03-29] MEDS: ENOXAPARIN 40 MG/0.4 ML SYRINGE (J1650) SC SCH (09:33)
[2017-03-29 12:00] VITALS: BP 160/84
[2017-03-29] MEDS: ONDANSETRON 4MG/2ML VIAL (J2405) IV PRN (13:13)
--- NOTE | 2017-03-29 14:58 | IPN ---
DATE: 03/29/2017 SUBJECTIVE: Patient is seen and examined in the room today. At this moment, the patient had a brief moment of altered mental status. The patient just woke up from a rest. The patient feels that she is in her old house, and her son was driving a van and came to the hospital and drove her home. However, the patient revisited in approximately 15-20 minutes. The patient started regain orientation. No overnight events reports. Per nursing staff, the patient became tearful in the morning before the morning encounter. OBJECTIVE: VITAL SIGNS: Temperature 96.9, pulse is 70, respiratory rate is 18, blood pressure 161/88, pulse oximetry 94% in room air. GENERAL: No signs of acute distress. Alert and oriented times three later in the morning. HEENT: Normocephalic, atraumatic. Extraocular motors grossly intact. CARDIOVASCULAR: Positive S1 and S2, regular rate. LUNGS: Clear to auscultation bilaterally. ABDOMEN: Soft, nontender, nondistended. Bowel sounds present. EXTREMITIES: The patient has a sling for the right upper extremities. Any minor movement will cause significant pain. Mild bilateral lower extremity edema. No signs of cyanosis. LABORATORY DATA: WBC 9.5, hemoglobin 11.5, hematocrit 34.1, platelet count is 206. Sodium 136, potassium 3.4, chloride is 102, carbon dioxide 29, BUN 18, creatinine 0.83, GFR greater than 60, fasting glucose 113, calcium is 8.5, magnesium 2.3. ASSESSMENT/PLAN: 1. Hypertensive urgency. The patient's blood pressure continues to improve. Now her systolic is running around 160. On the day of admission, the patient had a systolic blood pressure greater than 200. The patient is on lisinopril, bisoprolol. 2. Noncomminuted right humeral fracture. Orthopedic team consulted. Recommended slight with physical therapy and continue with medical management. 3. Chronic obstructive pulmonary disease (COPD). No exacerbation. Continue her current medications. 4. Altered mental status. The patient had a brief disorientation in the morning. We are not sure whether it is an isolated incident or if the patient does have a baseline onset of dementia with some confusion. Patient does not have any family members visiting. The patient's is currently being treated in the PCU for his medical condition. 5. Headache. Patient has had chronic headaches for many years. Excedrin is on hold due to the hypertensive urgency. Patient is currently supplemented with as needed Percocet. 6. History of arthritis. 7. Deep vein thrombosis (DVT) prophylaxis on Lovenox.
[2017-03-29 16:00] VITALS: BP 138/80
[2017-03-29 21:01] VITALS: BP 180/90
[2017-03-29] MEDS: LISINOPRIL 10 MG TAB PO SCH (21:10)
[2017-03-30] VITALS: BP 160/80
[2017-03-30] MEDS: PERCOCET 5MG/325MG TAB PO PRN ×5 (04:37→23:35)
[2017-03-30 06:03] LABS: BASO % 0.5 % (0.0-1.0); EOS # 0.1 K/mm3 (0.0-0.50); EOS % 1.3 % (0.0-3.0); LARGE UNSTAINED CELL # 0.1 K/mm3 (0.0-0.4); LARGE UNSTAINED CELL % 1.6 % (0.0-4.0); LYMPH # 0.7 K/mm3 (1.5-4.5); LYMPH % 8.7 % (24.0-44.0); MEAN CORPUSCULAR HEMOGLOBIN 31.2 pg (27.0-33.0); MEAN CORPUSCULAR HGB CONC 34.2 g/dl (32.0-36.5); MEAN CORPUSCULAR VOLUME 91.2 fl (80.0-96.0); MONO # 0.7 K/mm3 (0.0-0.8); MONO % 10.4 % (0.0-5.0); NEUTROPHILS # 5.1 K/mm3 (1.8-7.7); NEUTROPHILS % 77.5 % (36.0-66.0); PLATELET COUNT, AUTOMATED 183 k/mm3 (150-450); RED CELL DISTRIBUTION WIDTH 13.6 % (11.5-14.5); WHITE BLOOD COUNT 6.6 K/mm3 (4.0-10.0)
[2017-03-30 06:29] LABS: ALBUMIN 2.9 GM/DL (3.2-5.2); ALBUMIN/GLOBULIN RATIO 0.81 (1.00-1.93); ALKALINE PHOSPHATASE 65 U/L (45-117); ALT/SGPT 18 U/L (12-78); ANION GAP 8 MEQ/L (8-16); AST/SGOT 18 U/L (15-37); BILIRUBIN,DIRECT 0.1 MG/DL (0.0-0.2); BILIRUBIN,TOTAL 0.4 MG/DL (0.2-1.0); BLOOD UREA NITROGEN 16 MG/DL (7-18); CALCIUM LEVEL 8.1 MG/DL (8.8-10.2); CARBON DIOXIDE LEVEL 27 MEQ/L (21-32); CHLORIDE LEVEL 105 MEQ/L (98-107); CREATININE FOR GFR 0.74 MG/DL (0.55-1.02); GLOMERULAR FILTRATION RATE > 60.0 (>39); GLUCOSE, FASTING 95 MG/DL (83-110); POTASSIUM SERUM 3.7 MEQ/L (3.5-5.1); SODIUM LEVEL 140 MEQ/L (136-145); TOTAL PROTEIN 6.5 GM/DL (6.4-8.2)
[2017-03-30] MEDS: SYMBICORT 80/4.5MCG INHALER 6GM INH SCH ×2 (07:08→18:39)
--- NOTE | 2017-03-30 07:11 | ECHO ---
DATE OF PROCEDURE: 03/27/2017 DATE OF : 1940 AGE: 77 GENDER: Female HEIGHT: 62 inches WEIGHT: 176 pounds BODY SURFACE AREA: 1.82 meters squared INPATIENT: U, Room 3216 REFERRING PHYSICIAN: Dr. Peters INDICATION: Syncope. MEASUREMENTS: 2D measurements: RV: 3.4 cm LV: 5.0 cm Septum: 1.0 cm Posterior wall: 1.0 cm Aortic root: 3.2 cm Ascending aorta: 3.9 cm LA: 3.9 cm LVEF: 75% Doppler measurements: AV: 1.6 meters per second LVOT: 0.95 meters per second LVOT diameter: 2.2 cm MV-E: 75, A: 110, EA ratio: 0.7 Early mitral deceleration time: 201 milliseconds E prime: 4.9, A prime: 9, E/E prime ratio: 15.3 PV: 0.8 meters per second Pulmonary artery acceleration time: 137 milliseconds RVSP: 30 mmHg IVC: 1.7 cm COMMENTS: Normal sinus rhythm with first-degree AV block and narrow QRS complexes. Borderline left atrial enlargement but normal left ventricular size. Normal right heart chamber sizes. Normal LV wall thickness. On real-time imaging from the parasternal and apical projections, wall motion was symmetrical and hyperkinetic. Mildly thickened mitral annulus but normal leaflet thickness and excursion with no posterior systolic buckling. Three equal size aortic cusps with mildly thickened cusp edges but adequate cusp separation. Normal aortic root size but slightly dilated proximal ascending aorta. No apparent intracardiac mass or pericardial effusion. Color flow Doppler study taken from the parasternal and apical projection showed mild aortic and mild mitral, as well as mild tricuspid insufficiency. Guided continuous wave Doppler of her aortic valve showed a normal peak systolic velocity against LV outflow tract obstruction. Pulsed and continuous wave Doppler of her LV inflow tract taken from the apical four-chamber projection showed normal diastolic filling velocities against mitral stenosis. However, there was more prominent late diastolic/atrial dependent filling pattern. Degree of LV diastolic dysfunction was confirmed using tissue Doppler of her mitral annulus with current estimated mean left atrial pressure upper limits of normal to slightly increased. Pulsed and continuous wave Doppler of her pulmonary trunk showed a normal peak systolic velocity against RV outflow tract obstruction. Pulmonary acceleration time was normal against an elevated pulmonary vascular resistance. Guided continuous wave Doppler of her tricuspid valve allowed our estimation of her right ventricular systolic pressure (borderline increased). Normal IVC size and collapse against an elevated central venous pressure. CONCLUSIONS: Unable to define a structural or functional abnormality to account for the patient's syncopal spell. Normal left ventricular size, wall thickness and hyperkinetic wall motion. Borderline left atrial enlargement with Doppler evidence of impairment of LV diastolic relaxation but currently only borderline increased mean left atrial pressure. Normal right heart chamber sizes and wall motion with Doppler evidence of no more than borderline pulmonary hypertension. Normal IVC size and collapse against an elevated central venous pressure. Mild aortic valvular sclerosis without stenosis but mild insufficiency. Normal aortic root size but slightly dilated proximal ascending aorta. Mild mitral annular calcification with mild insufficiency.
[2017-03-30 08:00] VITALS: BP 156/60
[2017-03-30] MEDS: MULTIVITAMINS/MINERALS THERAP 1 TAB PO SCH (08:51)
[2017-03-30] MEDS: VITAMIN D 1,000 INTERNATIONAL UNITS TABLET PO SCH (08:51)
[2017-03-30] MEDS: POTASSIUM CHLORIDE 10 MEQ SR TABLET PO SCH (08:52)
[2017-03-30] MEDS: NEBIVOLOL 5 MG TAB (BYSTOLIC) PO SCH (08:54)
[2017-03-30] MEDS: LISINOPRIL 10 MG TAB PO SCH ×2 (08:55→20:23)
[2017-03-30] MEDS: ENOXAPARIN 40 MG/0.4 ML SYRINGE (J1650) SC SCH (08:55)
--- NOTE | 2017-03-30 10:15 | IPNPDOC ---
Subjective Date Seen The patient was seen on 03/30/17. Subjective Chief Complaint/HPI The patient is a 77-year-old female admitted with a reason for visit of Hypertensive Urgency. Pt examined at bedside. Reports pain in right upper arm and shoulder is same as yesterday, as is frontal headache. Pt states she is not eating or sleeping well due to her stress and began crying, stating that she wishes she "can sleep forever." Support and assurance provided. Per nursing, she was tearful overnight as well. No acute complaints. Constitutional: Denies: Chills, Fever Eyes: Denies: Vision change ENT: Denies: Head Aches, Dysphagia Pulmonary: Denies: Dyspnea, Cough Cardiovascular: Denies: Chest Pain, Palpitations, Edema, Lt Headedness Gastrointestinal: Denies: Nausea, Vomiting, Abdominal Pain Musculoskeletal: Reports: Shoulder Pain (rt shoulder), Arm Pain (rt arm) Neurological: Denies: Weakness, Numbness Psych: Reports: Anxiety (about injury and health), Depression (about injury and health) Objective Physical Examination General Exam: Positive: Alert, Cooperative, No Acute Distress Eye Exam: Positive: PERRLA, Conjunctiva & lids normal, EOMI ENT Exam: Positive: Mucous membr. moist/pink Neck Exam: Positive: Supple, Negative: JVD Chest Exam: Positive: Clear to auscultation, Normal air movement, Negative: Rales, Rhonchi, Wheezing Heart Exam: Positive: Rate Normal, Regular Rhythm, Normal S1, Normal S2 Abdomen Exam: Positive: Normal bowel sounds, Soft, Negative: Tenderness Extremity Exam: Positive: Normal pulses, Negative: Cyanosis, Edema, Swelling Skin Exam: Positive: Nl turgor and temperature Neuro Exam: Positive: Normal Speech, Strength at 5/5 X4 ext (weakness due to pain in right upper extremity and b/l lower extremities. Still requiring assitance to move and shoulder mobility limited due to pain.), Sensation Intact Psych Exam: Positive: Mental status NL, Anxiety, Memory Intact, Oriented x 3 Assessment /Plan Assessment Impacted right humeral head fracture s/p fall -Imaging: "Impacted right humeral head fracture" -right arm in brace -orthostatics positive 03/27/17. Pt asymptomatic. Fluid hydration. Monitor -pain same as yesterday. Continue Percocet and PT to evaluate -ortho consulted. Appreciate their input -Machinery Mover consulted Hypertensive Urgency -bp remaining ~160s/70s, attributable to pain and noncompliance. -home med Nebivolol and Lisinopril. Lisinopril increased from 20 to 30 yesterday and Labetalol stopped. Pt tolerating well. Continue holding Furosemide COPD -Symbicort, Proventil Arthritis -Tylenol prn DVT prophylaxis -Lovenox Plan/VTE VTE Prophylaxis Ordered?: Yes VS, I&O, 24H, Fishbone Vital Signs/I&O Vital Signs Date Time Temp Pulse Resp B/P (MAP) Pulse Ox O2 Delivery O2 Flow Rate FiO2 03/30/17 05:27 20 03/30/17 00:00 160/80 (106) 03/29/17 23:59 98.6 77 90 Room Air I&O- Last 24 Hours up to 6 AM 03/30/17 05:59 Intake Total 800 ml Output Total 1400 ml Balance -600 ml Laboratory Data 24H LABS Laboratory Tests 2 03/30/17 05:36: White Blood Count 6.6, Red Blood Count 3.72L, Hemoglobin 11.6L, Hematocrit 34.0L , Mean Corpuscular Volume 91.2, Mean Corpuscular Hemoglobin 31.2, Mean Corpuscular Hemoglobin Concent 34.2, Red Cell Distribution Width 13.6, Platelet Count 183, Neutrophils (%) (Auto) 77.5H, Lymphocytes (%) (Auto) 8.7L, Monocytes (%) (Auto) 10.4H, Eosinophils (%) (Auto) 1.3, Basophils (%) (Auto) 0.5, Neutrophils # (Auto) 5.1, Lymphocytes # (Auto) 0.7L, Monocytes # (Auto) 0.7, Eosinophils # (Auto) 0.1, Basophils # (Auto) 0.0, Large Unclassified Cells % 1.6 , Large Unclassified Cells # 0.1, Anion Gap 8, Glomerular Filtration Rate > 60.0 , Calcium Level 8.1L, Magnesium Level 2.0, Aspartate Amino Transf (AST/SGOT) 18 , Alanine Aminotransferase (ALT/SGPT) 18, Alkaline Phosphatase 65, Total Bilirubin 0.4, Direct Bilirubin 0.1, Ammonia 12, Total Protein 6.5, Albumin 2.9L , Albumin/Globulin Ratio 0.81L CBC/BMP Laboratory Tests 03/30/17 05:36 Red Blood Count 3.72 L, Mean Corpuscular Volume 91.2, Mean Corpuscular Hemoglobin 31.2, Mean Corpuscular Hemoglobin Concent 34.2, Red Cell Distribution Width 13.6, Neutrophils (%) (Auto) 77.5 H, Lymphocytes (%) (Auto) 8.7 L, Monocytes (%) (Auto) 10.4 H, Eosinophils (%) (Auto) 1.3, Basophils (%) ( Auto) 0.5, Neutrophils # (Auto) 5.1, Lymphocytes # (Auto) 0.7 L, Monocytes # ( Auto) 0.7, Eosinophils # (Auto) 0.1, Basophils # (Auto) 0.0 GME ATTESTATION E ATTESTATION My preceptor for this patient encounter was physically present in the building during the encounter and was fully available. As needed, all aspects of the patient interview, examination, medical decision making process, and medical care plan development were reviewed and approved by the preceptor. Preceptor is aware and concurs with the plan as stated in the body of this note and will attest to such by his/her cosignature. ROSANNA VAZQUEZ DO Mar 30, 2017 07:27 ELI SMITH DO Apr 29, 2017 07:20
[2017-03-30 14:00] VITALS: BP 150/85
[2017-03-30 20:15] VITALS: BP 151/81
[2017-03-30] MEDS: ACETAMINOPHEN TAB 650MG DOSE (2X325MG) PO PRN (20:24)
[2017-03-31] MEDS: ONDANSETRON 4MG/2ML VIAL (J2405) IV PRN ×2 (00:10→08:44)
[2017-03-31 06:00] VITALS: BP 159/88
[2017-03-31 07:23] LABS: BASO % 0.6 % (0.0-1.0); EOS # 0.1 K/mm3 (0.0-0.50); EOS % 1.9 % (0.0-3.0); LARGE UNSTAINED CELL # 0.1 K/mm3 (0.0-0.4); LARGE UNSTAINED CELL % 1.7 % (0.0-4.0); LYMPH # 0.6 K/mm3 (1.5-4.5); LYMPH % 8.7 % (24.0-44.0); MEAN CORPUSCULAR VOLUME 91.3 fl (80.0-96.0); MONO # 0.7 K/mm3 (0.0-0.8); MONO % 11.3 % (0.0-5.0); NEUTROPHILS # 4.8 K/mm3 (1.8-7.7); NEUTROPHILS % 75.8 % (36.0-66.0); PLATELET COUNT, AUTOMATED 210 k/mm3 (150-450); RED CELL DISTRIBUTION WIDTH 13.6 % (11.5-14.5); WHITE BLOOD COUNT 6.3 K/mm3 (4.0-10.0)
[2017-03-31 07:44] LABS: ANION GAP 7 MEQ/L (8-16); BLOOD UREA NITROGEN 12 MG/DL (7-18); CALCIUM LEVEL 7.8 MG/DL (8.8-10.2); CARBON DIOXIDE LEVEL 28 MEQ/L (21-32); CHLORIDE LEVEL 104 MEQ/L (98-107); CREATININE FOR GFR 0.64 MG/DL (0.55-1.02); GLOMERULAR FILTRATION RATE > 60.0 (>39); GLUCOSE, FASTING 89 MG/DL (83-110); MAGNESIUM LEVEL 2.1 MG/DL (1.8-2.4); POTASSIUM SERUM 4.1 MEQ/L (3.5-5.1); SODIUM LEVEL 139 MEQ/L (136-145)
[2017-03-31] MEDS: SYMBICORT 80/4.5MCG INHALER 6GM INH SCH ×2 (08:30→20:05)
[2017-03-31] MEDS: ENOXAPARIN 40 MG/0.4 ML SYRINGE (J1650) SC SCH (08:44)
[2017-03-31] MEDS: MULTIVITAMINS/MINERALS THERAP 1 TAB PO SCH (08:44)
[2017-03-31] MEDS: NEBIVOLOL 5 MG TAB (BYSTOLIC) PO SCH (08:45)
[2017-03-31] MEDS: LISINOPRIL 10 MG TAB PO SCH ×2 (08:45→20:32)
[2017-03-31] MEDS: POTASSIUM CHLORIDE 10 MEQ SR TABLET PO SCH (08:45)
[2017-03-31] MEDS: VITAMIN D 1,000 INTERNATIONAL UNITS TABLET PO SCH (08:45)
[2017-03-31] MEDS: PERCOCET 5MG/325MG TAB PO PRN ×4 (08:46→23:59)
[2017-03-31] MEDS: SENNA 8.6 MG TAB (SENOKOT) PO SCH ×2 (10:35→20:31)
[2017-03-31] MEDS: MOM 30ML SUSPENSION UDC PO PRN (10:35)
[2017-03-31] MEDS: ACETAMINOPHEN TAB 650MG DOSE (2X325MG) PO PRN ×3 (10:36→20:32)
[2017-03-31] MEDS ORDERED: amLODIPine 5 MG TAB PO ONE (11:15)
--- NOTE | 2017-03-31 12:13 | IPN ---
DATE OF SERVICE: 03/31/2017 Patient seen and examined at the bedside. Chart has been reviewed. Per nursing , patient has not had a bowel movement for several days, since admission. She is very tearful at the bedside and very anxious about her , requesting for her to see him in PCU. The patient complains of pain at the shoulder on the right. She currently denies any numbness or tingling sensation of the right upper extremity. She seems to be doing well with eating without assistance. At this time, she continues to have some ecchymosis on the chin and some tenderness around the right shoulder area by the joint at this time. She denies any chest pain, pressure, tightness, lightheadedness or dizziness. Blood pressure runs between 138 systolic to 160 systolic, diastolic is 80 to 90. She denies any changes in vision, headaches, chest pain, pressure or tightness. No lightheadedness or dizziness. She is tearful at the bedside and cries when her is mentioned. She states that she has no help at home and has been living with her . Son lives in the area, but is unable to help as he works flight crew time clerk at [employer]. She has no other family members. VITALS: Temperature 99.7, pulse 66, respiratory rate 20, blood pressure 159/88, 96% on room air. GENERAL: Patient is awake, alert and oriented times three, answering questions appropriately, somewhat tearful at the mention of her . Crying at the bedside. HEENT: Pupils are round and reactive. Extraocular muscles are intact. Normocephalic. No cervical lymphadenopathy or thyromegaly. Moist mucous membranes. Neck is supple, full range of motion. LUNGS: Clear to auscultation. No wheezing, rales or rhonchi. Air entry is equal bilaterally. HEART: S1 and S2, sinus rhythm. No murmurs, rubs or gallops. ABDOMEN: Soft, nontender, nondistended. Positive bowel sounds. No rebound, guarding or hepatosplenomegaly. EXTREMITIES: No cyanosis, clubbing or pitting edema. Motor strength is 5/5 times four extremities. Still requiring some assistance with the right upper extremity due to extreme pain with abduction and adduction, lifting above the shoulders causes a significant amount of pain and limited range of motion due to this. LABORATORY DATA: White count 6.3, hemoglobin 11, hematocrit 34, platelet count 210, sodium 139, potassium 4.1, chloride 104, bicarb 28, BUN 12, creatinine 0.64 , glucose of 89, calcium 7.8, magnesium of 2.1. IMAGING STUDIES: have been reviewed. ASSESSMENT/PLAN: This is a 77-year-old female who lives with her at home, son works flight crew time clerk, unable to provide care at home, history of osteoarthritis (OA), hypertension, dyslipidemia and chronic obstructive pulmonary disease (COPD), who presented to the emergency room after a fall at [facility] the [facility]. The patient was visiting her at the time, could not recall what happened, could only remember waking up on the ground and people surrounding her. The patient complained of right shoulder pain and right forehead pain after the head trauma. Evaluation included CT of the cervical spine with no fracture, right shoulder was evaluated by orthopedic surgery, Dr. Shah. At that time, the patient had a minimally displaced greater tuberosity fracture of the right proximal humerus with recommendations for a cuff and collar with Velcro straps over a sling, ice pack with a gown as skin barrier and plans for Noel Fink' office to be consulted for a true-cuff and collar device and outpatient followup with orthopedic surgery in 3-5 days for the PA for further evaluation. The patient has been treated during this hospital stay for hypertensive urgency on admission when she was found to have systolic pressure of 207/101 treated with lisinopril 30 mg twice a day. Current issues are as follows: 1. Hypertensive urgency. Patient had systolic pressure of 200. Currently improved to 155 on lisinopril 30 mg twice a day. Creatinine appears to be stable at 0.74 with GFR greater than 60, no signs of dehydration or renal dysfunction. Optimal blood pressure should be less than 150, therefore will add Norvasc 5 mg twice a day with holding parameters for a systolic pressure of less than 150. Beta blockers could not be given as the patient has a baseline heart rate in the 60s with increased risk of bradycardia, heart blocks and sinus pauses if beta blockade was given. 2. Minimally displaced greater tuberosity fracture of the right proximal humerus. Patient was initially on a sling which was discontinued by orthopedic surgery. Recommendations for a true-cuff and collar device with outpatient followup in the office within 3-5 days for further evaluation. At this time, physical therapy, occupational therapy, and physical medicine and rehabilitation has been consulted regarding patient safety for discharge home as she does live alone with her who is currently admitted to the hospital. Patient and family services (PFS) has been consulted to work out a safety discharge plan for both the patient and her as they are the only residents at the home and the patient has no other support system as her son works flight crew time clerk at [employer]. Pain management with as needed Percocet one tablet every 4 hours, monitor for delirium, sedation or respiratory distress. Patient is on bowel regimen with Milk of Magnesia, Dulcolax and Senokot as needed. 3. Vitamin D deficiency. Continue with vitamin D. 4. Chronic obstructive pulmonary disease (COPD). No acute exacerbation. Continue no home inhalers. 5. Altered mental status due to hypertensive urgency and fall. [place] as much as possible. The patient may have a baseline onset of dementia. Will need outpatient neurocognitive examination by neurology. 6. Chronic headaches. May be due to hypertensive urgency on admission and recent trauma. No overt intracranial hemorrhage on CT of the head. Monitor for symptoms. 7. History of osteoarthritis (OA), chronic. 8. Deep vein thrombosis (DVT) prophylaxis on subcutaneous Lovenox. 9. Anemia. Appears to be chronic. No acute indication for red blood cell transfusion. DISPOSITION: Patient is currently medically stable. No acute intervention is required by orthopedic surgery, outpatient recommendation is in 3-5 days after hospital discharge. The patient's blood pressure is improved from admission of 207/101 to 159/88. The patient can be transferred to ALC status until the patient passes a home safety evaluation and the social scientist has been consulted regarding safe discharge planning as she lives at home with her who is also admitted to the hospital. DONN
[2017-03-31 14:00] VITALS: BP 133/86
[2017-03-31] MEDS: BISACODYL 5 MG TAB PO PRN (18:20)
[2017-03-31] MEDS: ONDANSETRON 4 MG TAB (S0181) PO PRN (18:20)
[2017-03-31] MEDS: FAMOTIDINE 20 MG TAB PO PRN (18:20)
[2017-03-31] MEDS: amLODIPine 5 MG TAB PO SCH (20:31)
[2017-03-31 22:00] VITALS: BP 152/82
[2017-04-01 06:00] VITALS: BP 152/86
[2017-04-01] MEDS: PERCOCET 5MG/325MG TAB PO PRN ×4 (06:05→20:28)
[2017-04-01 07:06] LABS: BASO % 0.2 % (0.0-1.0); EOS # 0.2 K/mm3 (0.0-0.50); EOS % 3.2 % (0.0-3.0); LARGE UNSTAINED CELL # 0.1 K/mm3 (0.0-0.4); LARGE UNSTAINED CELL % 2.1 % (0.0-4.0); LYMPH # 0.6 K/mm3 (1.5-4.5); LYMPH % 8.5 % (24.0-44.0); MEAN CORPUSCULAR HEMOGLOBIN 30.9 pg (27.0-33.0); MEAN CORPUSCULAR HGB CONC 33.9 g/dl (32.0-36.5); MEAN CORPUSCULAR VOLUME 91.3 fl (80.0-96.0); MONO # 0.6 K/mm3 (0.0-0.8); MONO % 9.4 % (0.0-5.0); NEUTROPHILS # 5.1 K/mm3 (1.8-7.7); NEUTROPHILS % 76.5 % (36.0-66.0); PLATELET COUNT, AUTOMATED 215 k/mm3 (150-450); RED CELL DISTRIBUTION WIDTH 13.5 % (11.5-14.5); WHITE BLOOD COUNT 6.6 K/mm3 (4.0-10.0)
[2017-04-01 07:24] LABS: ANION GAP 8 MEQ/L (8-16); BLOOD UREA NITROGEN 11 MG/DL (7-18); CALCIUM LEVEL 8.6 MG/DL (8.8-10.2); CARBON DIOXIDE LEVEL 29 MEQ/L (21-32); CHLORIDE LEVEL 103 MEQ/L (98-107); CREATININE FOR GFR 0.71 MG/DL (0.55-1.02); GLOMERULAR FILTRATION RATE > 60.0 (>39); GLUCOSE, FASTING 97 MG/DL (83-110); MAGNESIUM LEVEL 2.2 MG/DL (1.8-2.4); SODIUM LEVEL 140 MEQ/L (136-145)
[2017-04-01] MEDS: SYMBICORT 80/4.5MCG INHALER 6GM INH SCH ×2 (09:11→19:42)
[2017-04-01] MEDS ORDERED: ACETAMINOPHEN TAB 650MG DOSE (2X325MG) PO ONE (09:15)
[2017-04-01] MEDS: SENNA 8.6 MG TAB (SENOKOT) PO SCH ×2 (09:22→20:27)
[2017-04-01] MEDS: MULTIVITAMINS/MINERALS THERAP 1 TAB PO SCH (09:22)
[2017-04-01] MEDS: POTASSIUM CHLORIDE 10 MEQ SR TABLET PO SCH (09:22)
[2017-04-01] MEDS: VITAMIN D 1,000 INTERNATIONAL UNITS TABLET PO SCH (09:22)
[2017-04-01] MEDS: amLODIPine 5 MG TAB PO SCH ×2 (09:23→20:13)
[2017-04-01] MEDS: LISINOPRIL 10 MG TAB PO SCH ×2 (09:23→20:28)
[2017-04-01] MEDS: NEBIVOLOL 5 MG TAB (BYSTOLIC) PO SCH (09:25)
--- NOTE | 2017-04-01 11:00 | REP ---
Clinical: History of trauma. Positioning. Technique: Internal rotation, external rotation, scapular view, "out of brace" external rotation view. Comparison: 03/26/2017. Findings: Current examination demonstrates osteopenia and early advanced osteoarthritic degenerative changes. There is suggestion for a fracture involving the humeral head and correlation is required. "out of brace" labeled view demonstrates a decreased sub acromial space to less than 2 mm and again suggestions for possible impacted humeral head fracture. Impression: Limited evaluation as described above demonstrates osteopenia and degenerative changes. Evidence for partially impacted humeral head fracture requires correlation. Signed by Nolan Harris MD 04/01/2017 10:51 A
[2017-04-01] MEDS: ENOXAPARIN 40 MG/0.4 ML SYRINGE (J1650) SC SCH (11:02)
[2017-04-01] MEDS: FAMOTIDINE 20 MG TAB PO PRN (11:03)
[2017-04-01] MEDS: **hydrALAZINE** 10 MG TAB PO SCH ×2 (11:03→20:27)
[2017-04-01] MEDS: ONDANSETRON 4 MG TAB (S0181) PO PRN (11:03)
[2017-04-01] MEDS: MOM 30ML SUSPENSION UDC PO PRN ×2 (14:03→18:20)
[2017-04-01] MEDS: BISACODYL 5 MG TAB PO PRN (14:03)
--- NOTE | 2017-04-01 15:12 | IPN ---
DATE: 04/01/2017 The patient is seen and examined at the bedside. Chart has been reviewed. The patient still complains of pain in the right shoulder as the patient has impacted humeral head. Per nursing, the patient has been very tearful about the prognosis of her , usually cries the times when he is mentioned. No changes in appetite. The patient has not exhibited hypersomnia but has had some difficulty sleeping last evening and appeared to be restless. This morning, she complains of headache. No changes in vision or diplopia. No chest pain, tightness, shortness of breath, palpitations, or lightheadedness. VITAL SIGNS: Temperature 97.9, pulse 82, respiratory rate 20, blood pressure 153/80, pulse oximetry is 95% on room air. GENERAL: She is awake, alert and oriented to person and place, answering questions appropriately, very tearful at the mention of her , crying at the bedside at times. Complains of severe headache but no respiratory distress. HEENT: Pupils are round and reactive. Extraocular muscles are intact. No cervical lymphadenopathy or thyromegaly. Moist mucous membranes. Neck is supple, full range of motion. LUNGS: Clear to auscultation. No wheezing, rales, or rhonchi. Air entry is equal bilaterally. HEART: S1, S2, sinus rhythm. No murmurs, rubs, or gallops. ABDOMEN: Soft, nontender, nondistended. Positive bowel sounds times four quadrants. No rebound, guarding, or hepatosplenomegaly. EXTREMITIES: Complaints of tenderness at the right shoulder. Limited range of motion due to severe pain with flexion and extension, abduction and adduction. Limitation with flexion and extension. No cyanosis, clubbing or pitting edema. Motor strength is 5/5 times four extremities. Still requiring assistance with the right upper extremity due to extreme pain with abduction and adduction, lifting above the shoulders causes significant pain with limitation of range of motion. Laboratory data and imaging studies have been reviewed. Impacted humeral fracture at the right proximal humerus. ASSESSMENT AND PLAN: This is a 77-year-old female who lives with her at home, son works full-time, unable to provide care at home with a history of osteoarthritis, hypertension, dyslipidemia, and chronic obstructive pulmonary disease (COPD) who presented to the emergency room (ER) after a fall at [facility] [place] while she was visiting her , could not recall what happened, could only remember waking up on the ground with people surrounding her. The patient was worked up for a syncopal episode on telemetry with no abnormal findings. CT of the cervical spine showed no fracture. Right shoulder was evaluated by orthopedic surgery and showed a minimally displaced greater tuberosity impacted fracture of the right proximal humerus with recommendations for a cuff and collar with Velcro straps over a sling, ice pack with gown as skin barrier, and for a true-cuff and collar device to be done by Noel Fink office. The patient was found to have hypertensive urgency on admission and was found to have systolic pressure of 207/101 as the potential cause for her syncopal episode. She was treated with lisinopril with addition of Norvasc 5 mg twice a day. 1. Hypertensive urgency, improved and resolved. Systolic pressure of 207 on admission, currently with systolic pressure 140s to 150s on lisinopril 30 mg twice a day. Creatinine appears to be stable with glomerular filtration rate (GFR) greater than 60 with no signs of dehydration or renal dysfunction. Optimal and goal blood pressure should be less than 150. Therefore, we will add Norvasc 5 mg twice a day with holding parameters and continue lisinopril 30 mg twice a day. Avoid dehydration and monitor clinically. Beta blockade could not be given as the patient's baseline heart rate is in the 60s. She is also exhibiting possible early signs of depression with the current situation with her having a guarded prognosis from his nonsustained ventricular tachycardia and ejection fraction (EF) of 20%, not a candidate for automatic implantable cardioverter defibrillator (AICD). Therefore, beta blockers would not be appropriate for her as a side effect could be depression. 2. Impacted greater tuberosity fracture of the right proximal humerus. Defer to orthopedic surgery. Recommendations are for a true-cuff and collar device by Noel Fink, to followup with orthopedic surgery in 3-5 days for further evaluation. At this time, physical therapy (PT) and occupational therapy (OT) has been consulted. The patient has not passed a home safety evaluation for discharge home. Patient and family services (PFS) has been consulted as the patient and her had been living independently prior to both of them being admitted to the hospital. They have no other support system at home and both are unable to care for each other and themselves as previously. Therefore, the patient will be changed to alternative level of care (ALC) status as she does not appear to have any other acute issues. 3. Headache. Tylenol as needed. 4. Chronic obstructive pulmonary disease. No acute exacerbation. Continue on home inhalers. 5. Vitamin D deficiency. Continue with vitamin D supplements. 6. Altered mental status due to hypertensive urgency and fall. The patient may have baseline onset of dementia. She will need outpatient neurocognitive examination by neurology. 7. Chronic headaches. May be due to hypertensive urgency. Pressure has improved currently. We will monitor for symptoms. 8. History of osteoarthritis, chronic. 9. Anemia, chronic. No acute indication for red blood cell transfusion. DISPOSITION: The patient is currently medically stable. No acute intervention per orthopedic surgery. Blood pressure has improved. Therefore, she can be transferred to alternative level of care (ALC) until safe discharge plan can be put in place for herself and for the patient's and her . DONN
[2017-04-01 20:00] VITALS: BP 148/98
[2017-04-02 00:02] VITALS: BP 159/83
[2017-04-02] MEDS: PERCOCET 5MG/325MG TAB PO PRN ×5 (00:52→21:54)
[2017-04-02] MEDS: ONDANSETRON 4 MG TAB (S0181) PO PRN (00:52)
[2017-04-02 04:00] VITALS: BP 151/83
[2017-04-02] MEDS: MOM 30ML SUSPENSION UDC PO PRN (06:11)
[2017-04-02 06:53] LABS: BASO % 0.4 % (0.0-1.0); EOS # 0.3 K/mm3 (0.0-0.50); EOS % 3.5 % (0.0-3.0); LARGE UNSTAINED CELL # 0.2 K/mm3 (0.0-0.4); LARGE UNSTAINED CELL % 1.7 % (0.0-4.0); LYMPH # 0.8 K/mm3 (1.5-4.5); LYMPH % 7.4 % (24.0-44.0); MEAN CORPUSCULAR HEMOGLOBIN 30.2 pg (27.0-33.0); MEAN CORPUSCULAR HGB CONC 32.7 g/dl (32.0-36.5); MEAN CORPUSCULAR VOLUME 92.4 fl (80.0-96.0); MONO # 0.7 K/mm3 (0.0-0.8); MONO % 7.6 % (0.0-5.0); NEUTROPHILS # 6.8 K/mm3 (1.8-7.7); NEUTROPHILS % 79.4 % (36.0-66.0); PLATELET COUNT, AUTOMATED 253 k/mm3 (150-450); RED CELL DISTRIBUTION WIDTH 13.6 % (11.5-14.5); WHITE BLOOD COUNT 8.6 K/mm3 (4.0-10.0)
[2017-04-02 07:20] LABS: ANION GAP 6 MEQ/L (8-16); BLOOD UREA NITROGEN 13 MG/DL (7-18); CALCIUM LEVEL 8.3 MG/DL (8.8-10.2); CARBON DIOXIDE LEVEL 30 MEQ/L (21-32); CHLORIDE LEVEL 100 MEQ/L (98-107); CREATININE FOR GFR 0.67 MG/DL (0.55-1.02); GLOMERULAR FILTRATION RATE > 60.0 (>39); GLUCOSE, FASTING 97 MG/DL (83-110); MAGNESIUM LEVEL 2.5 MG/DL (1.8-2.4); POTASSIUM SERUM 4.3 MEQ/L (3.5-5.1); SODIUM LEVEL 136 MEQ/L (136-145)
[2017-04-02] MEDS: SYMBICORT 80/4.5MCG INHALER 6GM INH SCH ×2 (08:53→20:20)
[2017-04-02] MEDS: ENOXAPARIN 40 MG/0.4 ML SYRINGE (J1650) SC SCH (08:55)
[2017-04-02] MEDS: amLODIPine 5 MG TAB PO SCH ×2 (08:55→21:00)
[2017-04-02] MEDS: POTASSIUM CHLORIDE 10 MEQ SR TABLET PO SCH (08:55)
[2017-04-02] MEDS: MULTIVITAMINS/MINERALS THERAP 1 TAB PO SCH (08:55)
[2017-04-02] MEDS: SENNA 8.6 MG TAB (SENOKOT) PO SCH (08:56)
[2017-04-02] MEDS: **hydrALAZINE** 10 MG TAB PO SCH ×2 (08:56→21:58)
[2017-04-02] MEDS: LISINOPRIL 10 MG TAB PO SCH ×2 (08:56→21:55)
[2017-04-02] MEDS: VITAMIN D 1,000 INTERNATIONAL UNITS TABLET PO SCH (09:03)
[2017-04-02] MEDS: NEBIVOLOL 5 MG TAB (BYSTOLIC) PO SCH (09:04)
[2017-04-02 11:56] LABS: MEAN CORPUSCULAR VOLUME 91.3 fl (80.0-96.0); WHITE BLOOD COUNT 8.5 K/mm3 (4.0-10.0)
[2017-04-02 11:57] LABS: MEAN CORPUSCULAR HEMOGLOBIN 31.1 pg (27.0-33.0); MEAN CORPUSCULAR HGB CONC 34.1 g/dl (32.0-36.5); RED CELL DISTRIBUTION WIDTH 13.4 % (11.5-14.5)
[2017-04-02 14:00] VITALS: BP 165/97
[2017-04-02 14:05] LABS: ANION GAP 9 MEQ/L (8-16); BLOOD UREA NITROGEN 14 MG/DL (7-18); CALCIUM LEVEL 8.4 MG/DL (8.8-10.2); CARBON DIOXIDE LEVEL 27 MEQ/L (21-32); CHLORIDE LEVEL 99 MEQ/L (98-107); CREATININE FOR GFR 0.71 MG/DL (0.55-1.02); GLOMERULAR FILTRATION RATE > 60.0 (>39); GLUCOSE, FASTING 104 MG/DL (83-110); POTASSIUM SERUM 4.3 MEQ/L (3.5-5.1); SODIUM LEVEL 135 MEQ/L (136-145)
[2017-04-02] MEDS ORDERED: SENNA 8.6 MG TAB (SENOKOT) PO PRN (20:00)
[2017-04-03 06:00] VITALS: BP 124/72
[2017-04-03] MEDS: FAMOTIDINE 20 MG TAB PO PRN (06:11)
[2017-04-03] MEDS: PERCOCET 5MG/325MG TAB PO PRN ×3 (06:11→20:08)
[2017-04-03 07:16] LABS: ANION GAP 8 MEQ/L (8-16); BLOOD UREA NITROGEN 13 MG/DL (7-18); CALCIUM LEVEL 8.8 MG/DL (8.8-10.2); CARBON DIOXIDE LEVEL 26 MEQ/L (21-32); CHLORIDE LEVEL 101 MEQ/L (98-107); CREATININE FOR GFR 0.62 MG/DL (0.55-1.02); GLOMERULAR FILTRATION RATE > 60.0 (>39); GLUCOSE, FASTING 98 MG/DL (83-110); POTASSIUM SERUM 4.5 MEQ/L (3.5-5.1); SODIUM LEVEL 135 MEQ/L (136-145)
[2017-04-03] MEDS: SYMBICORT 80/4.5MCG INHALER 6GM INH SCH ×2 (08:05→20:04)
[2017-04-03] MEDS: NEBIVOLOL 5 MG TAB (BYSTOLIC) PO SCH ×2 (10:20→10:25)
[2017-04-03] MEDS: **hydrALAZINE** 10 MG TAB PO SCH ×2 (10:20→20:08)
[2017-04-03] MEDS: ENOXAPARIN 40 MG/0.4 ML SYRINGE (J1650) SC SCH (10:20)
[2017-04-03] MEDS: MULTIVITAMINS/MINERALS THERAP 1 TAB PO SCH (10:20)
[2017-04-03] MEDS: amLODIPine 5 MG TAB PO SCH ×2 (10:23→20:09)
[2017-04-03] MEDS: VITAMIN D 1,000 INTERNATIONAL UNITS TABLET PO SCH (10:24)
[2017-04-03] MEDS: LISINOPRIL 10 MG TAB PO SCH ×2 (10:24→20:10)
[2017-04-03] MEDS: POTASSIUM CHLORIDE 10 MEQ SR TABLET PO SCH (10:24)
[2017-04-04] MEDS: PERCOCET 5MG/325MG TAB PO PRN ×4 (00:34→20:35)
[2017-04-04 06:18] VITALS: BP 138/78
[2017-04-04] MEDS: SYMBICORT 80/4.5MCG INHALER 6GM INH SCH ×2 (07:28→21:00)
[2017-04-04] MEDS ORDERED: ESCITALOPRAM OXALATE 5MG TABLET (LEXAPRO) PO ONE (08:00)
[2017-04-04] MEDS: amLODIPine 5 MG TAB PO SCH ×2 (09:00→20:20)
[2017-04-04] MEDS: MULTIVITAMINS/MINERALS THERAP 1 TAB PO SCH (09:06)
[2017-04-04] MEDS: LISINOPRIL 10 MG TAB PO SCH ×2 (09:06→20:34)
[2017-04-04] MEDS: POTASSIUM CHLORIDE 10 MEQ SR TABLET PO SCH (09:07)
[2017-04-04] MEDS: NEBIVOLOL 5 MG TAB (BYSTOLIC) PO SCH (09:08)
[2017-04-04] MEDS: **hydrALAZINE** 10 MG TAB PO SCH ×2 (09:08→20:37)
[2017-04-04] MEDS: VITAMIN D 1,000 INTERNATIONAL UNITS TABLET PO SCH (09:08)
[2017-04-04] MEDS: ENOXAPARIN 40 MG/0.4 ML SYRINGE (J1650) SC SCH (09:09)
[2017-04-05] MEDS: PERCOCET 5MG/325MG TAB PO PRN ×5 (00:29→22:10)
[2017-04-05] MEDS: ONDANSETRON 4 MG TAB (S0181) PO PRN ×2 (04:37→22:09)
[2017-04-05] MEDS: SYMBICORT 80/4.5MCG INHALER 6GM INH SCH ×2 (07:35→20:48)
[2017-04-05] MEDS: amLODIPine 5 MG TAB PO SCH ×2 (09:00→21:00)
[2017-04-05] MEDS: **hydrALAZINE** 10 MG TAB PO SCH ×2 (09:00→22:09)
[2017-04-05] MEDS: NEBIVOLOL 5 MG TAB (BYSTOLIC) PO SCH (09:00)
--- NOTE | 2017-04-05 09:05 | ECGEPIP ---
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
[2017-04-05 09:18] VITALS: BP 102/60
[2017-04-05] MEDS: POTASSIUM CHLORIDE 10 MEQ SR TABLET PO SCH (09:22)
[2017-04-05] MEDS: ESCITALOPRAM OXALATE 5MG TABLET (LEXAPRO) PO SCH (09:22)
[2017-04-05] MEDS: MULTIVITAMINS/MINERALS THERAP 1 TAB PO SCH (09:24)
[2017-04-05] MEDS: LISINOPRIL 10 MG TAB PO SCH ×2 (09:24→22:08)
[2017-04-05] MEDS: VITAMIN D 1,000 INTERNATIONAL UNITS TABLET PO SCH (09:24)
[2017-04-05] MEDS: ENOXAPARIN 40 MG/0.4 ML SYRINGE (J1650) SC SCH (09:25)
[2017-04-05 20:51] VITALS: BP 133/79
[2017-04-06 05:40] VITALS: BP 142/96
[2017-04-06] MEDS: SYMBICORT 80/4.5MCG INHALER 6GM INH SCH (07:49)
[2017-04-06] MEDS ORDERED: ENOXAPARIN 40 MG/0.4 ML SYRINGE (J1650) SC SCH (09:00)
[2017-04-06] MEDS: ESCITALOPRAM OXALATE 5MG TABLET (LEXAPRO) PO SCH (09:30)
[2017-04-06] MEDS: **hydrALAZINE** 10 MG TAB PO SCH (09:31)
[2017-04-06 09:32] VITALS: BP 158/85
[2017-04-06] MEDS: NEBIVOLOL 5 MG TAB (BYSTOLIC) PO SCH (09:32)
[2017-04-06] MEDS: POTASSIUM CHLORIDE 10 MEQ SR TABLET PO SCH (09:32)
[2017-04-06] MEDS: MULTIVITAMINS/MINERALS THERAP 1 TAB PO SCH (09:33)
[2017-04-06] MEDS: LISINOPRIL 10 MG TAB PO SCH (09:33)
[2017-04-06] MEDS: amLODIPine 5 MG TAB PO SCH (09:33)
[2017-04-06] MEDS: VITAMIN D 1,000 INTERNATIONAL UNITS TABLET PO SCH (09:34)
[2017-04-06] MEDS: PERCOCET 5MG/325MG TAB PO PRN (09:46)
[2017-04-06] MEDS ORDERED: AMLO5TAB2 PO (11:30)
[2017-04-06] MEDS ORDERED: SENN18TA PO (11:30)
[2017-04-06] MEDS ORDERED: LISI10TA4 PO (11:30)
[2017-04-06] MEDS ORDERED: PERCOCET PO (11:30)
[2017-04-06] MEDS ORDERED: Escitalopram Oxalate PO (11:30)
[2017-04-06] MEDS ORDERED: POTA10CA PO (11:30)
[2017-04-06] MEDS ORDERED: HYDR10TAB PO (11:30)
[2017-04-06 12:40] LABS: MEAN CORPUSCULAR HEMOGLOBIN 30.9 pg (27.0-33.0); MEAN CORPUSCULAR HGB CONC 33.4 g/dl (32.0-36.5); MEAN CORPUSCULAR VOLUME 92.5 fl (80.0-96.0); RED CELL DISTRIBUTION WIDTH 13.4 % (11.5-14.5); WHITE BLOOD COUNT 9.3 K/mm3 (4.0-10.0)
[2017-04-06 13:09] LABS: ANION GAP 6 MEQ/L (8-16); BLOOD UREA NITROGEN 12 MG/DL (7-18); CALCIUM LEVEL 8.8 MG/DL (8.8-10.2); CARBON DIOXIDE LEVEL 29 MEQ/L (21-32); CHLORIDE LEVEL 97 MEQ/L (98-107); CREATININE FOR GFR 0.67 MG/DL (0.55-1.02); GLOMERULAR FILTRATION RATE > 60.0 (>39); GLUCOSE, FASTING 98 MG/DL (83-110); POTASSIUM SERUM 4.9 MEQ/L (3.5-5.1); SODIUM LEVEL 132 MEQ/L (136-145)
--- NOTE | 2017-04-16 13:56 | DSES ---
DATE OF ADMISSION: 03/26/2017 DATE OF DISCHARGE: 04/06/2017 The patient was transferred to [facility]. CONSULTANTS DURING THIS ADMISSION: Orthopedic surgery. PRIMARY DISCHARGE DIAGNOSES: 1. Syncope, most likely vasovagal. 2. Hypertensive urgency. 3. Right humeral fracture. 4. Chronic obstructive pulmonary disease (COPD). 5. Chronic arthritis. 6. Depression. 7. Dyslipidemia. DISCHARGE MEDICATIONS: - Norvasc 5 mg twice a day - hydralazine 10 mg twice a day - Lisinopril 30 mg twice a day - Percocet one tablet every 4 hours as needed for pain - potassium 20 mEq daily - Senokot two tablets twice a day as needed - Lexapro 5 mg daily - albuterol as needed every 4 hours - Ultracet two tablets at night - artificial tears one drop both eyes four times a day as needed - Symbicort 80/4.5 two puffs twice a day as needed - vitamin D 1000 units daily - multivitamin one tablet daily - Bystolic 10 mg daily - Os-Keenan 500/200 one tablet daily DISCHARGE RECOMMENDATIONS: Orthopedic followup as previously recommended. HOSPITAL COURSE: The patient was changed to alternate level of care (ALC) status on 04/01/2017 and remained on alf facility (SNF) status until 04/06/2017 when she was discharged to [facility]. This is a 77-year-old female who lives with her at home. Son works multimedia specialist and unable to provide supportive care to his parents, history of osteoarthritis, hypertension, dyslipidemia, chronic obstructive pulmonary disease (COPD), who presented to the emergency room after a fall in [place] [facility]. The patient was visiting her and cannot surrounding her. She complained of right shoulder pain and right forehead pain after the head trauma. Evaluation in the emergency room, included CT of the cervical spine with no fracture, right shoulder was evaluated by the orthopedic surgeon, Dr. Shah. The patient had minimally displaced greater tuberosity fracture of right proximal humerus, recommendations were cuff and collar with Velcro straps over sling, ice packs with skin barrier. The patient fitted for a cuff and collar device and outpatient followup with orthopedic surgery in 3 to 5 days for the physician's assistant distribution manager for reevaluation after hospital discharge. The patient was found to have hypertensive urgency with systolic pressure of 207, diastolic 101, treated with Lisinopril 30 mg twice a day, hydralazine and Norvasc with improvement. Beta blockade could not be titrated as the patient had a baseline heart rate of 60s and increased bradycardia, heart block, sinuses pauses if titrated higher. The patient was given Percocet as needed for the shoulder pain, as well as a bowel regimen with milk of magnesia, Dulcolax and Senokot. She was continued on vitamin D and home inhalers for COPD. She continued to have altered mental status due to hypertensive urgency and the fall, was reoriented as much as possible, may have had a baseline onset of dementia. She complained initially of headaches, which resolved. CT of the head due to loss of consciousness and syncopal episode showed no acute bleed or fracture. The patient was changed to alternate level of care (ALC) status on 04/01/2017 as she could not be discharged home. She has no other support system and has failed a home safety evaluation. She was subsequently transferred to [facility] on 04/06/2017. LABORATORIES ON DISCHARGE: White count 9.3, hemoglobin 12, hematocrit 36, platelet count 303. Sodium 132, potassium 4.9, chloride 97, bicarbonate 29, BUN 12, creatinine 0.67, glucose of 98. IMAGING STUDIES: Shoulder x-ray on 03/26/2017 showed no acute fracture or dislocation. Radial ulnar x-ray with no fracture noted. Knee x-ray on 03/26/2017, bilateral knees, no fracture seen. Humeral x-ray on 03/26/[address] fracture [address]. CT of the head with no acute bleed or fracture. Chest CT on 03/26/2017 due to hypertensive urgency and trauma, impacted right humeral head fracture, no other dramatic finding in the chest. Cervical spine CT showed degenerative changes without fracture or dislocation. CT of the abdomen and pelvis due to hypertensive urgency with no acute abnormalities. Shoulder x-ray on 04/01/2017 shows osteopenia, partially impacted humeral head fracture, requires correlation. Time spent on discharge: 40 minutes. MTDD
== END 2017-04-06 13:35 | DRG 563 ==
LOC: M ED 13:47 → M ED INP 19:20 → M PCU 03-27 17:21 → M MS4PR 03-30 13:10 → M MS5PR 04-05 18:44
PROVIDERS: ADMIT Hospitalist; ATTEND General Practice
DX: S42.251A Displaced fracture of greater tuberosity of right humerus, initial encounter for closed fracture (principal); I16.0 Hypertensive urgency; J44.9 Chronic obstructive pulmonary disease, unspecified; R55 Syncope and collapse; F32.9 Major depressive disorder, single episode, unspecified; M19.90 Unspecified osteoarthritis, unspecified site; E78.5 Hyperlipidemia, unspecified; Z79.899 Other long term (current) drug therapy; W18.30XA Fall on same level, unspecified, initial encounter; Y92.238 Other place in hospital as the place of occurrence of the external cause; Z88.0 Allergy status to penicillin; Z88.5 Allergy status to narcotic agent; Z88.8 Allergy status to other drugs, medicaments and biological substances; Z96.641 Presence of right artificial hip joint; Z87.891 Personal history of nicotine dependence; E55.9 Vitamin D deficiency, unspecified; R51 Headache; D64.9 Anemia, unspecified

== ENCOUNTER → 2017-04-14 | Outpatient (REF) ==
[~2017-04-14] MED LIST changes: +ALKATAB24 PO; +AMLO5TAB2 PO; +Escitalopram Oxalate PO; +HYDR10TAB PO; +KLOR1CAP2 PO; +LISI10TA4 PO; +PERCOCET PO; +SENN18TA PO
[2017-04-14 10:24] LABS: MEAN CORPUSCULAR HEMOGLOBIN 30.8 pg (27.0-33.0); MEAN CORPUSCULAR HGB CONC 33.6 g/dl (32.0-36.5); MEAN CORPUSCULAR VOLUME 91.4 fl (80.0-96.0); WHITE BLOOD COUNT 6.4 K/mm3 (4.0-10.0)
[2017-04-14 10:47] LABS: ANION GAP 9 MEQ/L (8-16); BLOOD UREA NITROGEN 21 MG/DL (7-18); CALCIUM LEVEL 9.3 MG/DL (8.8-10.2); CARBON DIOXIDE LEVEL 27 MEQ/L (21-32); CHLORIDE LEVEL 99 MEQ/L (98-107); CREATININE FOR GFR 0.83 MG/DL (0.55-1.02); GLOMERULAR FILTRATION RATE > 60.0 (>39); GLUCOSE, FASTING 80 MG/DL (83-110); POTASSIUM SERUM 4.7 MEQ/L (3.5-5.1); SODIUM LEVEL 135 MEQ/L (136-145)
== END ==
PROVIDERS: ATTEND Internal Medicine
DX: I10 Essential (primary) hypertension (principal)

== ENCOUNTER → 2017-04-21 | Outpatient (REF) ==
[2017-04-21 09:13] LABS: MEAN CORPUSCULAR HGB CONC 32.5 g/dl (32.0-36.5); MEAN CORPUSCULAR VOLUME 92.4 fl (80.0-96.0); RED CELL DISTRIBUTION WIDTH 13.2 % (11.5-14.5); WHITE BLOOD COUNT 5.3 10^3/uL (4.0-10.0)
[2017-04-21 09:42] LABS: ANION GAP 7 MEQ/L (8-16); BLOOD UREA NITROGEN 19 MG/DL (7-18); CARBON DIOXIDE LEVEL 28 MEQ/L (21-32); CHLORIDE LEVEL 100 MEQ/L (98-107); CREATININE FOR GFR 0.85 MG/DL (0.55-1.02); GLOMERULAR FILTRATION RATE > 60.0 (>39); GLUCOSE, FASTING 116 MG/DL (83-110); POTASSIUM SERUM 4.7 MEQ/L (3.5-5.1); SODIUM LEVEL 135 MEQ/L (136-145)
== END ==
PROVIDERS: ATTEND Internal Medicine
DX: I10 Essential (primary) hypertension (principal)

== ENCOUNTER → 2017-05-12 | Outpatient (REF) ==
[2017-05-12 12:18] LABS: MEAN CORPUSCULAR HEMOGLOBIN 30.1 pg (27.0-33.0); MEAN CORPUSCULAR HGB CONC 32.6 g/dl (32.0-36.5); MEAN CORPUSCULAR VOLUME 92.5 fl (80.0-96.0); RED CELL DISTRIBUTION WIDTH 13.6 % (11.5-14.5); WHITE BLOOD COUNT 6.1 10^3/uL (4.0-10.0)
[2017-05-12 14:03] LABS: ANION GAP 6 MEQ/L (8-16); BLOOD UREA NITROGEN 16 MG/DL (7-18); CALCIUM LEVEL 8.5 MG/DL (8.8-10.2); CARBON DIOXIDE LEVEL 29 MEQ/L (21-32); CHLORIDE LEVEL 99 MEQ/L (98-107); CREATININE FOR GFR 0.75 MG/DL (0.55-1.02); GLOMERULAR FILTRATION RATE > 60.0 (>39); GLUCOSE, FASTING 85 MG/DL (83-110); POTASSIUM SERUM 4.4 MEQ/L (3.5-5.1); SODIUM LEVEL 134 MEQ/L (136-145)
== END ==
PROVIDERS: ATTEND Internal Medicine
DX: I10 Essential (primary) hypertension (principal)

== ENCOUNTER → 2017-05-26 | Outpatient (REF) ==
--- NOTE | 2017-05-26 12:46 | REP ---
Right ribs series four views and PA chest single view: Right ribs four views: There is diffuse demineralization. There is no rib fracture or other rib abnormality. There is surgical fusion of the lumbar spine. PA chest: Comparisons 09/02/2012. There is no pneumothorax, hemothorax or pulmonary contusion. The lung whaley are clear. Cardiac size is upper normal, unchanged. The julia, mediastinum, and bony thorax are unchanged. Impression: Essentially negative PA chest. No Signed by Erik Hutchison MD 05/26/2017 12:37 P
--- NOTE | 2017-05-26 13:32 | REP ---
RIGHT HIP, TWO VIEWS: HISTORY: Pain. COMPARISON: 11/25/2015. The patient is status post right total hip replacement. There is no acute fracture or dislocation. The bony structure is osteopenic. IMPRESSION: The patient is status post right total hip replacement. Signed by Hernando Fletcher MD 05/26/2017 01:34 P
== END ==
PROVIDERS: ATTEND Internal Medicine
DX: M25.551 Pain in right hip (principal); Z96.641 Presence of right artificial hip joint; R07.81 Pleurodynia

== ENCOUNTER → 2017-06-17 | Outpatient (REF) ==
[2017-06-17 10:08] LABS: MEAN CORPUSCULAR HEMOGLOBIN 28.7 pg (27.0-33.0); MEAN CORPUSCULAR HGB CONC 31.6 g/dl (32.0-36.5); MEAN CORPUSCULAR VOLUME 90.8 fl (80.0-96.0); PLATELET COUNT, AUTOMATED 247 10^3/uL (150-450); RED CELL DISTRIBUTION WIDTH 14.4 % (11.5-14.5); WHITE BLOOD COUNT 5.7 10^3/uL (4.0-10.0)
[2017-06-17 10:28] LABS: ANION GAP 7 MEQ/L (8-16); BLOOD UREA NITROGEN 14 MG/DL (7-18); CALCIUM LEVEL 9.2 MG/DL (8.8-10.2); CARBON DIOXIDE LEVEL 29 MEQ/L (21-32); CHLORIDE LEVEL 103 MEQ/L (98-107); CREATININE FOR GFR 0.76 MG/DL (0.55-1.02); GLOMERULAR FILTRATION RATE > 60.0 (>39); GLUCOSE, FASTING 98 MG/DL (83-110); POTASSIUM SERUM 3.7 MEQ/L (3.5-5.1); SODIUM LEVEL 139 MEQ/L (136-145)
== END ==
PROVIDERS: ATTEND Internal Medicine
DX: I10 Essential (primary) hypertension (principal)

== ENCOUNTER → 2017-10-23 | Outpatient (CLI) | payer MEDICARE, MEDICAID | LOC: M RAD 09:56 | DX: S42.002A Fracture of unspecified part of left clavicle, initial encounter for closed fracture (principal); W18.30XA Fall on same level, unspecified, initial encounter; Y92.89 Other specified places as the place of occurrence of the external cause | CPT/HCPCS: 70110 ==

== ENCOUNTER 2017-12-08 06:00 | Outpatient (REF) | payer MEDICARE, MEDICAID ==
[2017-12-11 10:21] LABS: HEMOGLOBIN 13.1 g/dl (12.0-15.5); MEAN CORPUSCULAR HGB CONC 32.8 g/dl (32.0-36.5); MEAN CORPUSCULAR VOLUME 91.7 fl (80.0-96.0); PLATELET COUNT, AUTOMATED 210 10^3/uL (150-450); RED BLOOD COUNT 4.36 10^6/uL (4.00-5.40); RED CELL DISTRIBUTION WIDTH 14.1 % (11.5-14.5); WHITE BLOOD COUNT 5.6 10^3/uL (4.0-10.0)
[2017-12-11 10:39] LABS: ANION GAP 5 MEQ/L (8-16); BLOOD UREA NITROGEN 13 MG/DL (7-18); CALCIUM LEVEL 8.8 MG/DL (8.8-10.2); CARBON DIOXIDE LEVEL 30 MEQ/L (21-32); CHLORIDE LEVEL 104 MEQ/L (98-107); CREATININE FOR GFR 0.78 MG/DL (0.55-1.30); GLOMERULAR FILTRATION RATE > 60.0 (>39); GLUCOSE, FASTING 85 MG/DL (70-100); POTASSIUM SERUM 4.1 MEQ/L (3.5-5.1); SODIUM LEVEL 139 MEQ/L (136-145)
== END 2017-12-11 ==
DX: I10 Essential (primary) hypertension (principal)
CPT/HCPCS: 80048

== ENCOUNTER → 2018-03-01 | Outpatient (REF) | DX: R07.81 Pleurodynia (principal); Z98.1 Arthrodesis status; W19.XXXA Unspecified fall, initial encounter ==

== ENCOUNTER → 2018-06-15 | Outpatient (REF) | payer MEDICARE, MEDICAID ==
[2018-06-15 10:49] LABS: HEMATOCRIT 39.7 % (36.0-47.0); HEMOGLOBIN 12.7 g/dl (12.0-15.5); MEAN CORPUSCULAR HEMOGLOBIN 30.3 pg (27.0-33.0); MEAN CORPUSCULAR VOLUME 94.7 fl (80.0-96.0); PLATELET COUNT, AUTOMATED 171 10^3/uL (150-450); RED BLOOD COUNT 4.19 10^6/uL (4.00-5.40); RED CELL DISTRIBUTION WIDTH 12.8 % (11.5-14.5); WHITE BLOOD COUNT 5.2 10^3/uL (4.0-10.0)
[2018-06-15 11:00] LABS: ANION GAP 6 MEQ/L (8-16); BLOOD UREA NITROGEN 17 MG/DL (7-18); CARBON DIOXIDE LEVEL 29 MEQ/L (21-32); CHLORIDE LEVEL 102 MEQ/L (98-107); CREATININE FOR GFR 0.85 MG/DL (0.55-1.30); GLOMERULAR FILTRATION RATE > 60.0 (>39); GLUCOSE, FASTING 115 MG/DL (70-100); POTASSIUM SERUM 4.1 MEQ/L (3.5-5.1); SODIUM LEVEL 137 MEQ/L (136-145)
== END ==
DX: I10 Essential (primary) hypertension (principal)
CPT/HCPCS: 80048

== ENCOUNTER → 2018-08-18 | Outpatient (REF) | payer MEDICARE, MEDICAID ==
[~2018-08-18] MED LIST changes: -AMLO5TAB2 PO; +AMLO5TAB6 PO; +KLOR10TA76 PO; -LASI20TA PO; +LASI20TA3 PO; -POTA10CA PO; +ZOFR4TAB14 PO; -ZOFR4TAB3 PO
--- NOTE | 2018-08-18 14:06 | REP ---
LEFT HIP, TWO VIEWS: HISTORY: Hip pain. There is no acute fracture or dislocation. There is minimal narrowing of the joint space. IMPRESSION: There is no acute fracture or dislocation. Electronically Signed by Hernando Fletcher MD 08/18/2018 02:10 P
--- NOTE | 2018-08-18 14:10 | REP ---
LEFT KNEE, SIX VIEWS: HISTORY: Knee pain. There is no acute fracture or dislocation. There is moderate narrowing of the medial and mild narrowing of the lateral knee joint space. Chondrocalcinosis is present. There is marked narrowing of the patellofemoral joint space. Osteophytes are present on the femur, tibia, and patella. The bony structure is osteopenic. IMPRESSION: Degenerative change as described above. Electronically Signed by Hernando Fletcher MD 08/18/2018 02:41 P
== END ==
PROVIDERS: ATTEND Internal Medicine
DX: M25.552 Pain in left hip (principal); M25.562 Pain in left knee; W19.XXXA Unspecified fall, initial encounter

== ENCOUNTER → 2018-09-13 | Outpatient (REF) | payer MEDICARE, MEDICAID ==
--- NOTE | 2018-09-13 12:43 | REP ---
PORTABLE RIGHT WRIST, TWO VIEWS: HISTORY: Pain. There is no acute fracture or dislocation. There is narrowing of the first carpal metacarpal joint space. The bony structure is osteopenic. IMPRESSION: There is no acute fracture or dislocation. Electronically Signed by Hernando Fletcher MD 09/13/2018 12:48 P
== END ==
PROVIDERS: ATTEND Internal Medicine
DX: M25.531 Pain in right wrist (principal); W19.XXXA Unspecified fall, initial encounter

== ENCOUNTER → 2018-10-04 | Outpatient (REF) | payer MEDICARE, MEDICAID ==
[2018-10-04 13:33] LABS: HEMATOCRIT 35.8 % (36.0-47.0); HEMOGLOBIN 11.6 g/dl (12.0-15.5); MEAN CORPUSCULAR HEMOGLOBIN 29.3 pg (27.0-33.0); MEAN CORPUSCULAR HGB CONC 32.4 g/dl (32.0-36.5); MEAN CORPUSCULAR VOLUME 90.4 fl (80.0-96.0); PLATELET COUNT, AUTOMATED 262 10^3/uL (150-450); RED BLOOD COUNT 3.96 10^6/uL (4.00-5.40); WHITE BLOOD COUNT 7.6 10^3/uL (4.0-10.0)
[2018-10-04 14:11] LABS: ALT/SGPT 12 U/L (12-78); BILIRUBIN,TOTAL 0.2 MG/DL (0.2-1.0); BLOOD UREA NITROGEN 15 MG/DL (7-18); C REACTIVE PROTEIN QUANTITATIV 7.24 MG/DL (0.00-0.30); CALCIUM LEVEL 8.7 MG/DL (8.8-10.2); CARBON DIOXIDE LEVEL 25 MEQ/L (21-32); CHLORIDE LEVEL 102 MEQ/L (98-107); CREATININE FOR GFR 0.82 MG/DL (0.55-1.30); GLOMERULAR FILTRATION RATE > 60.0 (>39); GLUCOSE, FASTING 75 MG/DL (70-100); MAGNESIUM LEVEL 2.1 MG/DL (1.8-2.4); NT-PRO BNP 436 PG/ML (<450); POTASSIUM SERUM 4.8 MEQ/L (3.5-5.1); SODIUM LEVEL 135 MEQ/L (136-145); TOTAL PROTEIN 7.8 GM/DL (6.4-8.2)
[2018-10-04 14:20] LABS: ERYTHROCYTE SEDIMENTATION RATE 67 mm/hr (0-30)
== END ==
PROVIDERS: ATTEND Internal Medicine
DX: R41.82 Altered mental status, unspecified (principal); M25.50 Pain in unspecified joint

== ENCOUNTER → 2018-10-05 | Outpatient (REF) | payer MEDICARE, MEDICAID | PROVIDERS: ATTEND Internal Medicine | DX: I50.9 Heart failure, unspecified (principal) ==

== ENCOUNTER → 2018-10-12 | Outpatient (REF) | payer MEDICARE, MEDICAID | PROVIDERS: ATTEND Nurse Practitioner Adult Health | DX: M19.90 Unspecified osteoarthritis, unspecified site (principal) ==

== ENCOUNTER → 2018-10-18 | Outpatient (REF) | payer MEDICARE, MEDICAID | PROVIDERS: ATTEND Internal Medicine | DX: R41.0 Disorientation, unspecified (principal) ==

== ENCOUNTER → 2018-10-27 | Outpatient (REF) | payer MEDICARE, MEDICAID | PROVIDERS: ATTEND Internal Medicine | DX: M12.9 Arthropathy, unspecified (principal) ==

== ENCOUNTER → 2018-11-09 | Outpatient (REF) | payer MEDICARE, MEDICAID ==
[~2018-11-09] MED LIST changes: -/ADVA50050; -/PANT40TA; -/WARF25TA; +ADVA1AER2; +COUM1TAB18; +PROT1TAB2
== END ==
PROVIDERS: ATTEND Internal Medicine
DX: M12.9 Arthropathy, unspecified (principal)

== ENCOUNTER → 2018-11-23 | Outpatient (REF) | payer MEDICARE, MEDICAID | PROVIDERS: ATTEND Internal Medicine | DX: M12.9 Arthropathy, unspecified (principal) ==

== ENCOUNTER → 2018-12-14 | Outpatient (REF) | payer MEDICARE, MEDICAID ==
[2018-12-14 08:44] LABS: HEMATOCRIT 36.4 % (36.0-47.0); HEMOGLOBIN 11.9 g/dl (12.0-15.5); MEAN CORPUSCULAR HEMOGLOBIN 30.6 pg (27.0-33.0); MEAN CORPUSCULAR HGB CONC 32.7 g/dl (32.0-36.5); MEAN CORPUSCULAR VOLUME 93.6 fl (80.0-96.0); PLATELET COUNT, AUTOMATED 202 10^3/uL (150-450); RED BLOOD COUNT 3.89 10^6/uL (4.00-5.40); WHITE BLOOD COUNT 6.5 10^3/uL (4.0-10.0)
[2018-12-14 09:12] LABS: CALCIUM LEVEL 8.8 MG/DL (8.8-10.2); CREATININE FOR GFR 0.97 MG/DL (0.55-1.30); POTASSIUM SERUM 4.5 MEQ/L (3.5-5.1)
== END ==
PROVIDERS: ATTEND Internal Medicine
DX: I10 Essential (primary) hypertension (principal)

== ENCOUNTER → 2019-01-18 | Outpatient (REF) | payer MEDICARE, MEDICAID | PROVIDERS: ATTEND Internal Medicine | DX: I10 Essential (primary) hypertension (principal) ==

== ENCOUNTER → 2019-04-12 | Outpatient (REF) | payer MEDICARE, MEDICAID ==
[~2019-04-12] MED LIST changes: -ARTI99.0 OU; +ARTIDRO2 OU
== END ==
PROVIDERS: ATTEND Nurse Practitioner Adult Health
DX: M12.9 Arthropathy, unspecified (principal)

== ENCOUNTER → 2019-06-14 | Outpatient (REF) | payer MEDICARE, MEDICAID ==
[2019-06-14 10:01] LABS: HEMATOCRIT 40.2 % (36.0-47.0); HEMOGLOBIN 13.1 g/dl (12.0-15.5); MEAN CORPUSCULAR HGB CONC 32.6 g/dl (32.0-36.5); MEAN CORPUSCULAR VOLUME 95.3 fl (80.0-96.0); PLATELET COUNT, AUTOMATED 245 10^3/uL (150-450); RED BLOOD COUNT 4.22 10^6/uL (4.00-5.40); WHITE BLOOD COUNT 9.2 10^3/uL (4.0-10.0)
[2019-06-14 10:22] LABS: CALCIUM LEVEL 9.7 MG/DL (8.8-10.2); CREATININE FOR GFR 0.99 MG/DL (0.55-1.30); GLOMERULAR FILTRATION RATE 57.5 (>32); POTASSIUM SERUM 4.4 MEQ/L (3.5-5.1)
== END ==
PROVIDERS: ATTEND Internal Medicine
DX: I10 Essential (primary) hypertension (principal)

== ENCOUNTER → 2019-08-19 | Outpatient (REF) | payer MEDICARE, MEDICAID ==
[2019-08-19 13:16] LABS: HEMATOCRIT 37.9 % (36.0-47.0); HEMOGLOBIN 12.1 g/dl (12.0-15.5); MEAN CORPUSCULAR HEMOGLOBIN 30.1 pg (27.0-33.0); MEAN CORPUSCULAR HGB CONC 31.9 g/dl (32.0-36.5); MEAN CORPUSCULAR VOLUME 94.3 fl (80.0-96.0); PLATELET COUNT, AUTOMATED 226 10^3/uL (150-450); RED BLOOD COUNT 4.02 10^6/uL (4.00-5.40); WHITE BLOOD COUNT 8.7 10^3/uL (4.0-10.0)
[2019-08-19 14:54] LABS: ERYTHROCYTE SEDIMENTATION RATE 46 mm/hr (0-30)
== END ==
PROVIDERS: ATTEND Internal Medicine
DX: R22.40 Localized swelling, mass and lump, unspecified lower limb (principal)

== ENCOUNTER → 2019-08-19 | Outpatient (CLI) | payer MEDICARE, MEDICAID ==
--- NOTE | 2019-08-19 16:27 | REP ---
Right tibia-fibula four views: There is demineralization. There is no fracture or dislocation. There are no lytic, blastic or destructive skeletal changes. There are no calcifications or foreign bodies, other than occasional vascular atheroma. There is osteoarthritis of the right knee. Electronically Signed by Erik Hutchison MD 08/19/2019 04:19 P
--- NOTE | 2019-08-19 16:36 | REP ---
Left lower extremity deep vein duplex ultrasound of the: The there is intraluminal thrombus in the popliteal vein. There is no thrombus in the superficial femoral vein or common femoral vein. No thrombus is identified in the saphenous vein. Impression: Popliteal vein thrombus. Electronically Signed by Erik Hutchison MD 08/19/2019 04:28 P
== END ==
LOC: M RAD 14:31
PROVIDERS: ATTEND Nurse Practitioner Adult Health
DX: I82.431 Acute embolism and thrombosis of right popliteal vein (principal); M17.11 Unilateral primary osteoarthritis, right knee; R22.40 Localized swelling, mass and lump, unspecified lower limb

== ENCOUNTER → 2019-08-26 | Outpatient (REF) | payer MEDICARE, MEDICAID ==
[2019-08-26 15:42] LABS: HEMATOCRIT 42.1 % (36.0-47.0); HEMOGLOBIN 13.1 g/dl (12.0-15.5); MEAN CORPUSCULAR HEMOGLOBIN 29.6 pg (27.0-33.0); MEAN CORPUSCULAR HGB CONC 31.1 g/dl (32.0-36.5); PLATELET COUNT, AUTOMATED 274 10^3/uL (150-450); RED BLOOD COUNT 4.43 10^6/uL (4.00-5.40); WHITE BLOOD COUNT 7.8 10^3/uL (4.0-10.0)
== END ==
PROVIDERS: ATTEND Nurse Practitioner Adult Health
DX: R60.9 Edema, unspecified (principal)

== ENCOUNTER → 2019-09-13 | Outpatient (REF) | payer MEDICARE, MEDICAID ==
[~2019-09-13] MED LIST changes: -ARTIDRO2 OU; +POLYOPD OU
[2019-09-13 12:32] LABS: HEMOGLOBIN 12.1 g/dl (12.0-15.5); MEAN CORPUSCULAR HGB CONC 31.8 g/dl (32.0-36.5); MEAN CORPUSCULAR VOLUME 94.1 fl (80.0-96.0); PLATELET COUNT, AUTOMATED 196 10^3/uL (150-450); RED BLOOD COUNT 4.04 10^6/uL (4.00-5.40); WHITE BLOOD COUNT 5.9 10^3/uL (4.0-10.0)
== END ==
PROVIDERS: ATTEND Nurse Practitioner Adult Health
DX: I10 Essential (primary) hypertension (principal)

== ENCOUNTER → 2019-09-20 | Outpatient (REF) | payer MEDICARE, MEDICAID ==
[2019-09-20 10:11] LABS: HEMATOCRIT 39.9 % (36.0-47.0); MEAN CORPUSCULAR HEMOGLOBIN 30.3 pg (27.0-33.0); MEAN CORPUSCULAR HGB CONC 32.6 g/dl (32.0-36.5); PLATELET COUNT, AUTOMATED 211 10^3/uL (150-450); RED BLOOD COUNT 4.29 10^6/uL (4.00-5.40); WHITE BLOOD COUNT 6.3 10^3/uL (4.0-10.0)
== END ==
PROVIDERS: ATTEND Nurse Practitioner Adult Health
DX: I10 Essential (primary) hypertension (principal)

== ENCOUNTER → 2019-09-27 | Outpatient (REF) | payer MEDICARE, MEDICAID ==
[2019-09-27 11:02] LABS: HEMOGLOBIN 12.7 g/dl (12.0-15.5); MEAN CORPUSCULAR HEMOGLOBIN 30.2 pg (27.0-33.0); MEAN CORPUSCULAR HGB CONC 32.6 g/dl (32.0-36.5); MEAN CORPUSCULAR VOLUME 92.6 fl (80.0-96.0); PLATELET COUNT, AUTOMATED 202 10^3/uL (150-450); RED BLOOD COUNT 4.21 10^6/uL (4.00-5.40); WHITE BLOOD COUNT 7.5 10^3/uL (4.0-10.0)
== END ==
PROVIDERS: ATTEND Nurse Practitioner Adult Health
DX: Z79.01 Long term (current) use of anticoagulants (principal)

== ENCOUNTER → 2019-10-04 | Outpatient (REF) | payer MEDICARE, MEDICAID ==
[2019-10-04 13:43] LABS: HEMATOCRIT 41.3 % (36.0-47.0); HEMOGLOBIN 13.6 g/dl (12.0-15.5); MEAN CORPUSCULAR HEMOGLOBIN 31.1 pg (27.0-33.0); MEAN CORPUSCULAR HGB CONC 32.9 g/dl (32.0-36.5); MEAN CORPUSCULAR VOLUME 94.3 fl (80.0-96.0); PLATELET COUNT, AUTOMATED 222 10^3/uL (150-450); RED BLOOD COUNT 4.38 10^6/uL (4.00-5.40); WHITE BLOOD COUNT 8.3 10^3/uL (4.0-10.0)
== END ==
PROVIDERS: ATTEND Internal Medicine
DX: Z79.01 Long term (current) use of anticoagulants (principal)

== ENCOUNTER → 2019-10-11 | Outpatient (REF) | payer MEDICARE, MEDICAID ==
[2019-10-11 12:02] LABS: HEMATOCRIT 39.4 % (36.0-47.0); MEAN CORPUSCULAR HEMOGLOBIN 30.9 pg (27.0-33.0); MEAN CORPUSCULAR VOLUME 93.6 fl (80.0-96.0); PLATELET COUNT, AUTOMATED 199 10^3/uL (150-450); RED BLOOD COUNT 4.21 10^6/uL (4.00-5.40); WHITE BLOOD COUNT 8.1 10^3/uL (4.0-10.0)
== END ==
PROVIDERS: ATTEND Nurse Practitioner Adult Health
DX: Z79.01 Long term (current) use of anticoagulants (principal)

== ENCOUNTER → 2019-12-13 | Outpatient (REF) | payer MEDICARE, MEDICAID ==
[2019-12-13 10:53] LABS: HEMATOCRIT 39.6 % (36.0-47.0); HEMOGLOBIN 12.8 g/dl (12.0-15.5); MEAN CORPUSCULAR HEMOGLOBIN 30.5 pg (27.0-33.0); MEAN CORPUSCULAR HGB CONC 32.3 g/dl (32.0-36.5); MEAN CORPUSCULAR VOLUME 94.5 fl (80.0-96.0); PLATELET COUNT, AUTOMATED 190 10^3/uL (150-450); RED BLOOD COUNT 4.19 10^6/uL (4.00-5.40); WHITE BLOOD COUNT 6.4 10^3/uL (4.0-10.0)
[2019-12-13 11:28] LABS: BLOOD UREA NITROGEN 19 MG/DL (7-18); CALCIUM LEVEL 8.9 MG/DL (8.8-10.2); CARBON DIOXIDE LEVEL 27 MEQ/L (21-32); CHLORIDE LEVEL 107 MEQ/L (98-107); CREATININE FOR GFR 0.86 MG/DL (0.55-1.30); GLOMERULAR FILTRATION RATE > 60.0 (>32); GLUCOSE, FASTING 99 MG/DL (70-100); POTASSIUM SERUM 4.3 MEQ/L (3.5-5.1); SODIUM LEVEL 140 MEQ/L (136-145)
== END ==
PROVIDERS: ATTEND Internal Medicine
DX: I10 Essential (primary) hypertension (principal)

== ENCOUNTER → 2019-12-13 | Outpatient (REF) | PROVIDERS: ATTEND Internal Medicine | DX: Z03.818 Encounter for observation for suspected exposure to other biological agents ruled out (principal) ==

== ENCOUNTER → 2020-01-17 | Outpatient (REF) | payer MEDICARE, MEDICAID ==
[2020-01-17 10:44] LABS: HEMOGLOBIN 12.5 g/dl (12.0-15.5); MEAN CORPUSCULAR HEMOGLOBIN 31.2 pg (27.0-33.0); MEAN CORPUSCULAR HGB CONC 32.9 g/dl (32.0-36.5); MEAN CORPUSCULAR VOLUME 94.8 fl (80.0-96.0); PLATELET COUNT, AUTOMATED 215 10^3/uL (150-450); RED BLOOD COUNT 4.01 10^6/uL (4.00-5.40); WHITE BLOOD COUNT 7.1 10^3/uL (4.0-10.0)
== END ==
PROVIDERS: ATTEND Internal Medicine
DX: G50.1 Atypical facial pain (principal)

== ENCOUNTER → 2020-01-17 | Outpatient (CLI) | payer MEDICARE, MEDICAID | LOC: M RAD 15:23 | PROVIDERS: ATTEND Nurse Practitioner Adult Health | DX: R22.0 Localized swelling, mass and lump, head (principal) ==

== ENCOUNTER → 2020-01-17 | Outpatient (REF) | payer MEDICARE, MEDICAID ==
--- NOTE | 2020-01-17 23:25 | REP ---
MANDIBLE SERIES: Four views of the mandible are performed. I see no evidence of acute fracture, dislocation, or intrinsic bone disease. IMPRESSION: Negative exam of the mandible. Electronically Signed by Erik Nj MD 01/18/2020 04:58 P
== END ==
PROVIDERS: ATTEND Internal Medicine
DX: G50.1 Atypical facial pain (principal)

== ENCOUNTER → 2020-06-07 | Outpatient (REF) ==
[~2020-06-07] MED LIST changes: +AMLO1TAB24 PO; -AMLO5TAB6 PO
== END ==
PROVIDERS: ATTEND Internal Medicine
DX: Z20.828 Contact with and (suspected) exposure to other viral communicable diseases (principal)

== ENCOUNTER → 2020-06-13 | Outpatient (REF) | payer MEDICARE, MEDICAID ==
[2020-06-13 11:26] LABS: HEMOGLOBIN 12.7 g/dl (12.0-15.5); MEAN CORPUSCULAR HEMOGLOBIN 30.5 pg (27.0-33.0); MEAN CORPUSCULAR VOLUME 98.3 fl (80.0-96.0); PLATELET COUNT, AUTOMATED 377 10^3/uL (150-450); RED BLOOD COUNT 4.17 10^6/uL (4.00-5.40); WHITE BLOOD COUNT 10.1 10^3/uL (4.0-10.0)
[2020-06-13 12:00] LABS: CALCIUM LEVEL 9.2 MG/DL (8.8-10.2); CREATININE FOR GFR 0.96 MG/DL (0.55-1.30); GLOMERULAR FILTRATION RATE 59.4 (>32)
== END ==
PROVIDERS: ATTEND Internal Medicine
DX: I10 Essential (primary) hypertension (principal)

== ENCOUNTER → 2020-06-14 | Outpatient (REF) | payer MEDICARE, MEDICAID ==
[~2020-06-14] MED LIST changes: +LISI10TA22 PO; -LISI10TA4 PO
== END ==
LOC: EDSTATUS 07-24 14:38
PROVIDERS: ATTEND Internal Medicine
DX: Z20.828 Contact with and (suspected) exposure to other viral communicable diseases (principal)

== ENCOUNTER → 2020-06-20 | Outpatient (REF) | payer MEDICARE, MEDICAID | PROVIDERS: ATTEND Internal Medicine | DX: Z20.828 Contact with and (suspected) exposure to other viral communicable diseases (principal) ==

== ENCOUNTER → 2020-07-08 | Outpatient (REF) | payer MEDICARE, MEDICAID ==
[~2020-07-08] MED LIST changes: -LISI10TA22 PO; +LISI10TA4 PO
== END ==
PROVIDERS: ATTEND Internal Medicine
DX: Z20.828 Contact with and (suspected) exposure to other viral communicable diseases (principal)

== ENCOUNTER → 2020-07-12 | Outpatient (REF) | payer MEDICARE, MEDICAID | PROVIDERS: ATTEND Internal Medicine | DX: Z20.828 Contact with and (suspected) exposure to other viral communicable diseases (principal) ==

== ENCOUNTER → 2020-07-18 | Outpatient (REF) | payer MEDICARE, MEDICAID | PROVIDERS: ATTEND Internal Medicine | DX: Z20.828 Contact with and (suspected) exposure to other viral communicable diseases (principal) ==

== ENCOUNTER → 2020-07-24 | Outpatient (REF) | payer MEDICARE, MEDICAID | PROVIDERS: ATTEND Internal Medicine | DX: Z20.828 Contact with and (suspected) exposure to other viral communicable diseases (principal) ==

== ENCOUNTER → 2020-07-30 | Outpatient (REF) | payer MEDICARE, MEDICAID | PROVIDERS: ATTEND Internal Medicine | DX: Z20.828 Contact with and (suspected) exposure to other viral communicable diseases (principal) ==

== ENCOUNTER → 2020-08-03 | Outpatient (REF) | payer MEDICARE, MEDICAID | PROVIDERS: ATTEND Internal Medicine | DX: Z20.822 Contact with and (suspected) exposure to COVID-19 (principal) ==

== ENCOUNTER → 2020-08-07 | Outpatient (REF) | payer MEDICARE, MEDICAID ==
[2020-08-07 14:49] LABS: APPEARANCE, URINE TURBID (CLEAR); BACTERIA, URINE AUTO 3+ (NEGATIVE); BILIRUBIN, URINE AUTO NEGATIVE (NEGATIVE); BLOOD, URINE BLOOD 1+ (NEGATIVE); COLOR, URINE AMBER (YELLOW); GLUCOSE, URINE (UA) AUTO NEGATIVE (NEGATIVE); KETONE, URINE AUTO NEGATIVE (NEGATIVE); LEUKOCYTE ESTERASE, URINE AUTO 3+ (NEGATIVE); MUCUS, URINE LARGE (NEGATIVE); NITRITE, URINE AUTO NEGATIVE (NEGATIVE); PROTEIN, URINE AUTO 1+ mg/dL (NEGATIVE); RBC, URINE AUTO 138 /HPF (0-3); SPECIFIC GRAVITY URINE AUTO 1.014 (1.002-1.035); SQUAMOUS EPITHELIAL CELL UR AU 10 /HPF (0-6); UROBILINOGEN, URINE AUTO 0.2 mg/dL (0.0-2.0); WBC, URINE AUTO TNTC /HPF (0-3)
== END ==
PROVIDERS: ATTEND Internal Medicine
DX: F32.9 Major depressive disorder, single episode, unspecified (principal); Z79.899 Other long term (current) drug therapy

== ENCOUNTER → 2020-08-08 | Outpatient (REF) | payer MEDICARE, MEDICAID | PROVIDERS: ATTEND Internal Medicine | DX: Z20.828 Contact with and (suspected) exposure to other viral communicable diseases (principal) ==

== ENCOUNTER → 2020-08-08 | Outpatient (REF) | payer MEDICARE, MEDICAID ==
[2020-08-08 08:44] LABS: HEMOGLOBIN 11.4 g/dl (12.0-15.5); MEAN CORPUSCULAR HEMOGLOBIN 30.8 pg (27.0-33.0); MEAN CORPUSCULAR HGB CONC 32.6 g/dl (32.0-36.5); MEAN CORPUSCULAR VOLUME 94.6 fl (80.0-96.0); PLATELET COUNT, AUTOMATED 236 10^3/uL (150-450); WHITE BLOOD COUNT 11.9 10^3/uL (4.0-10.0)
[2020-08-08 09:37] LABS: BILIRUBIN,TOTAL 0.3 MG/DL (0.2-1.0); CALCIUM LEVEL 8.2 MG/DL (8.8-10.2); CREATININE FOR GFR 3.38 MG/DL (0.55-1.30); GLOMERULAR FILTRATION RATE 13.9 (>32); POTASSIUM SERUM 4.1 MEQ/L (3.5-5.1); THYROID STIMULATING HORMONE 0.795 uIU/ML (0.358-3.740); TOTAL PROTEIN 6.4 GM/DL (6.4-8.2)
== END ==
PROVIDERS: ATTEND Internal Medicine
DX: Z20.828 Contact with and (suspected) exposure to other viral communicable diseases (principal); R63.4 Abnormal weight loss
CPT/HCPCS: 36415; 80053; 84443; 85027; U0003

== ENCOUNTER → 2020-08-09 | Outpatient (REF) | payer MEDICARE, MEDICAID ==
[2020-08-09 15:09] LABS: CALCIUM LEVEL 7.5 MG/DL (8.8-10.2); CREATININE FOR GFR 2.46 MG/DL (0.55-1.30); POTASSIUM SERUM 3.5 MEQ/L (3.5-5.1)
== END ==
PROVIDERS: ATTEND Nurse Practitioner Adult Health
DX: N19 Unspecified kidney failure (principal)

== ENCOUNTER → 2020-08-10 | Outpatient (REF) | payer MEDICARE, MEDICAID ==
[~2020-08-10] MED LIST changes: +LISI10TA22 PO; -LISI10TA4 PO
[2020-08-10 10:17] LABS: CALCIUM LEVEL 7.4 MG/DL (8.8-10.2); CREATININE FOR GFR 1.95 MG/DL (0.55-1.30); GLOMERULAR FILTRATION RATE 26.2 (>32); POTASSIUM SERUM 3.2 MEQ/L (3.5-5.1)
== END ==
PROVIDERS: ATTEND Nurse Practitioner Adult Health
DX: N19 Unspecified kidney failure (principal)

== ENCOUNTER → 2020-08-11 | Outpatient (REF) | payer MEDICARE, MEDICAID ==
[2020-08-11 16:10] LABS: HEMATOCRIT 27.2 % (36.0-47.0); MEAN CORPUSCULAR HGB CONC 33.1 g/dl (32.0-36.5); MEAN CORPUSCULAR VOLUME 93.8 fl (80.0-96.0); PLATELET COUNT, AUTOMATED 176 10^3/uL (150-450); WHITE BLOOD COUNT 7.3 10^3/uL (4.0-10.0)
[2020-08-11 16:13] LABS: CALCIUM LEVEL 7.7 MG/DL (8.8-10.2); CREATININE FOR GFR 1.54 MG/DL (0.55-1.30); GLOMERULAR FILTRATION RATE 34.4 (>32); POTASSIUM SERUM 3.2 MEQ/L (3.5-5.1)
== END ==
PROVIDERS: ATTEND Nurse Practitioner Adult Health
DX: N19 Unspecified kidney failure (principal)

== ENCOUNTER → 2020-08-15 | Outpatient (REF) | payer MEDICARE, MEDICAID | PROVIDERS: ATTEND Internal Medicine | DX: E87.0 Hyperosmolality and hypernatremia (principal) ==

== ENCOUNTER → 2020-08-15 | Outpatient (REF) | payer MEDICARE, MEDICAID ==
[2020-08-15 10:49] LABS: HEMOGLOBIN 10.8 g/dl (12.0-15.5); MEAN CORPUSCULAR HGB CONC 31.8 g/dl (32.0-36.5); MEAN CORPUSCULAR VOLUME 97.7 fl (80.0-96.0); PLATELET COUNT, AUTOMATED 252 10^3/uL (150-450); RED BLOOD COUNT 3.48 10^6/uL (4.00-5.40); WHITE BLOOD COUNT 10.5 10^3/uL (4.0-10.0)
[2020-08-15 11:12] LABS: CALCIUM LEVEL 8.9 MG/DL (8.8-10.2); CREATININE FOR GFR 1.44 MG/DL (0.55-1.30); GLOMERULAR FILTRATION RATE 37.2 (>32); POTASSIUM SERUM 3.3 MEQ/L (3.5-5.1)
[2020-08-15 14:45] LABS: CALCIUM LEVEL 8.6 MG/DL (8.8-10.2); CREATININE FOR GFR 1.41 MG/DL (0.55-1.30); GLOMERULAR FILTRATION RATE 38.1 (>32)
== END ==
PROVIDERS: ATTEND Internal Medicine
DX: N17.9 Acute kidney failure, unspecified (principal)

== ENCOUNTER → 2020-08-15 | Outpatient (REF) | payer MEDICARE, MEDICAID ==
[~2020-08-15] MED LIST changes: -LISI10TA22 PO; +LISI10TA4 PO
== END ==
PROVIDERS: ATTEND Internal Medicine
DX: Z20.822 Contact with and (suspected) exposure to COVID-19 (principal)

== ENCOUNTER → 2020-08-16 | Outpatient (REF) | payer MEDICARE, MEDICAID ==
[~2020-08-16] MED LIST changes: +LISI10TA22 PO; -LISI10TA4 PO
[2020-08-16 09:55] LABS: CALCIUM LEVEL 8.5 MG/DL (8.8-10.2); CREATININE FOR GFR 1.11 MG/DL (0.55-1.30); GLOMERULAR FILTRATION RATE 50.2 (>32); POTASSIUM SERUM 3.3 MEQ/L (3.5-5.1)
== END ==
PROVIDERS: ATTEND Internal Medicine
DX: N19 Unspecified kidney failure (principal)

== ENCOUNTER → 2020-08-17 | Outpatient (REF) | payer MEDICARE, MEDICAID ==
[2020-08-17 10:27] LABS: HEMATOCRIT 26.1 % (36.0-47.0); MEAN CORPUSCULAR HEMOGLOBIN 31.4 pg (27.0-33.0); MEAN CORPUSCULAR HGB CONC 32.6 g/dl (32.0-36.5); MEAN CORPUSCULAR VOLUME 96.3 fl (80.0-96.0); PLATELET COUNT, AUTOMATED 186 10^3/uL (150-450); RED BLOOD COUNT 2.71 10^6/uL (4.00-5.40); WHITE BLOOD COUNT 8.3 10^3/uL (4.0-10.0)
[2020-08-17 10:32] LABS: HEMOGLOBIN 8.5 g/dl (12.0-15.5)
[2020-08-17 10:49] LABS: CALCIUM LEVEL 7.5 MG/DL (8.8-10.2); CREATININE FOR GFR 1.01 MG/DL (0.55-1.30); POTASSIUM SERUM 3.1 MEQ/L (3.5-5.1)
== END ==
PROVIDERS: ATTEND Internal Medicine
DX: N17.9 Acute kidney failure, unspecified (principal)

== ENCOUNTER → 2020-08-18 | Outpatient (REF) | payer MEDICARE, MEDICAID ==
[2020-08-18 12:46] LABS: BLOOD UREA NITROGEN 14 MG/DL (7-18); CALCIUM LEVEL 7.2 MG/DL (8.8-10.2); CARBON DIOXIDE LEVEL 15 MEQ/L (21-32); CHLORIDE LEVEL 116 MEQ/L (98-107); CREATININE FOR GFR 0.92 MG/DL (0.55-1.30); GLOMERULAR FILTRATION RATE > 60.0 (>32); GLUCOSE, FASTING 146 MG/DL (70-100); POTASSIUM SERUM 3.2 MEQ/L (3.5-5.1); SODIUM LEVEL 145 MEQ/L (136-145)
== END ==
PROVIDERS: ATTEND Internal Medicine
DX: N17.9 Acute kidney failure, unspecified (principal)

== ENCOUNTER → 2020-08-20 | Outpatient (REF) | payer MEDICARE, MEDICAID ==
[2020-08-20 13:28] LABS: BLOOD UREA NITROGEN 11 MG/DL (7-18); CALCIUM LEVEL 8.1 MG/DL (8.8-10.2); CARBON DIOXIDE LEVEL 21 MEQ/L (21-32); CHLORIDE LEVEL 115 MEQ/L (98-107); CREATININE FOR GFR 0.84 MG/DL (0.55-1.30); GLOMERULAR FILTRATION RATE > 60.0 (>32); GLUCOSE, FASTING 120 MG/DL (70-100); POTASSIUM SERUM 3.6 MEQ/L (3.5-5.1); SODIUM LEVEL 143 MEQ/L (136-145)
== END ==
PROVIDERS: ATTEND Internal Medicine
DX: E87.0 Hyperosmolality and hypernatremia (principal); E87.6 Hypokalemia

== ENCOUNTER → 2020-08-20 | Outpatient (CLI) | payer MEDICARE, MEDICAID ==
--- NOTE | 2020-08-20 08:57 | REP ---
INDICATION: RENAL INJURY, DEHYDRATION COMPARISON: None TECHNIQUE: Real time bower scale ultrasound examination using curved array transducer. FINDINGS: The bilateral kidneys are relatively normal in reniform shape and demonstrate increased central sinus fat along without hydronephrosis, nephrolithiasis, cystic or renal mass lesion. Right kidney measures 8.3 x 4.0 x 4.3 cm. Left kidney measures 9.5 x 5.0 x 5.4 cm. Bladder is unremarkable. IMPRESSION: Findings consistent with age-related renal disease. <Electronically signed by Nolna Harris > 08/20/20 [id number]
== END ==
LOC: M RAD 08:08
PROVIDERS: ATTEND Nurse Practitioner Adult Health
DX: E87.0 Hyperosmolality and hypernatremia (principal); E87.6 Hypokalemia; E86.0 Dehydration; N17.9 Acute kidney failure, unspecified

== ENCOUNTER → 2020-08-21 | Outpatient (REF) | payer MEDICARE, MEDICAID ==
[2020-08-21 12:28] LABS: BLOOD UREA NITROGEN 10 MG/DL (7-18); CALCIUM LEVEL 8.1 MG/DL (8.8-10.2); CARBON DIOXIDE LEVEL 21 MEQ/L (21-32); CHLORIDE LEVEL 114 MEQ/L (98-107); CREATININE FOR GFR 0.83 MG/DL (0.55-1.30); GLOMERULAR FILTRATION RATE > 60.0 (>32); GLUCOSE, FASTING 82 MG/DL (70-100); POTASSIUM SERUM 3.7 MEQ/L (3.5-5.1); SODIUM LEVEL 146 MEQ/L (136-145)
== END ==
PROVIDERS: ATTEND Internal Medicine
DX: E87.0 Hyperosmolality and hypernatremia (principal); E87.6 Hypokalemia

== ENCOUNTER → 2020-08-22 | Outpatient (REF) | payer MEDICARE, MEDICAID ==
[2020-08-22 12:22] LABS: BLOOD UREA NITROGEN 10 MG/DL (7-18); CALCIUM LEVEL 8.5 MG/DL (8.8-10.2); CARBON DIOXIDE LEVEL 20 MEQ/L (21-32); CHLORIDE LEVEL 114 MEQ/L (98-107); CREATININE FOR GFR 0.91 MG/DL (0.55-1.30); GLOMERULAR FILTRATION RATE > 60.0 (>32); GLUCOSE, FASTING 114 MG/DL (70-100); POTASSIUM SERUM 3.7 MEQ/L (3.5-5.1); SODIUM LEVEL 142 MEQ/L (136-145)
== END ==
PROVIDERS: ATTEND Internal Medicine
DX: Z20.822 Contact with and (suspected) exposure to COVID-19 (principal); N18.9 Chronic kidney disease, unspecified
CPT/HCPCS: 36415; 80048; U0003

== ENCOUNTER → 2020-08-23 | Outpatient (REF) | payer MEDICARE, MEDICAID ==
[~2020-08-23] MED LIST changes: -LISI10TA22 PO; +LISI10TA4 PO
[2020-08-23 16:50] LABS: BLOOD UREA NITROGEN 8 MG/DL (7-18); CALCIUM LEVEL 8.3 MG/DL (8.8-10.2); CARBON DIOXIDE LEVEL 21 MEQ/L (21-32); CHLORIDE LEVEL 111 MEQ/L (98-107); GLOMERULAR FILTRATION RATE > 60.0 (>32); GLUCOSE, FASTING 103 MG/DL (70-100); POTASSIUM SERUM 3.1 MEQ/L (3.5-5.1); SODIUM LEVEL 141 MEQ/L (136-145)
== END ==
PROVIDERS: ATTEND Internal Medicine
DX: N18.9 Chronic kidney disease, unspecified (principal)

== ENCOUNTER → 2020-08-27 | Outpatient (REF) | payer MEDICARE, MEDICAID ==
[2020-08-27 09:27] LABS: ALBUMIN 2.1 GM/DL (3.2-5.2); ALT/SGPT 20 U/L (12-78); BILIRUBIN,TOTAL 0.2 MG/DL (0.2-1.0); BLOOD UREA NITROGEN 7 MG/DL (7-18); CALCIUM LEVEL 8.3 MG/DL (8.8-10.2); CARBON DIOXIDE LEVEL 20 MEQ/L (21-32); CHLORIDE LEVEL 112 MEQ/L (98-107); CREATININE FOR GFR 0.83 MG/DL (0.55-1.30); GLOMERULAR FILTRATION RATE > 60.0 (>32); GLUCOSE, FASTING 102 MG/DL (70-100); POTASSIUM SERUM 3.5 MEQ/L (3.5-5.1); SODIUM LEVEL 142 MEQ/L (136-145); TOTAL PROTEIN 5.5 GM/DL (6.4-8.2)
== END ==
PROVIDERS: ATTEND Internal Medicine
DX: N18.9 Chronic kidney disease, unspecified (principal)

== ENCOUNTER → 2020-08-29 | Outpatient (REF) | payer MEDICARE, MEDICAID | PROVIDERS: ATTEND Internal Medicine | DX: Z20.822 Contact with and (suspected) exposure to COVID-19 (principal) ==

== ENCOUNTER → 2020-09-04 | Outpatient (REF) | payer MEDICARE, MEDICAID ==
[~2020-09-04] MED LIST changes: +LISI10TA22 PO; -LISI10TA4 PO
[2020-09-04 11:51] LABS: HEMATOCRIT 29.3 % (36.0-47.0); HEMOGLOBIN 9.2 g/dl (12.0-15.5); MEAN CORPUSCULAR HEMOGLOBIN 31.3 pg (27.0-33.0); MEAN CORPUSCULAR HGB CONC 31.4 g/dl (32.0-36.5); MEAN CORPUSCULAR VOLUME 99.7 fl (80.0-96.0); PLATELET COUNT, AUTOMATED 275 10^3/uL (150-450); RED BLOOD COUNT 2.94 10^6/uL (4.00-5.40); WHITE BLOOD COUNT 10.5 10^3/uL (4.0-10.0)
[2020-09-04 12:29] LABS: BLOOD UREA NITROGEN 11 MG/DL (7-18); CARBON DIOXIDE LEVEL 21 MEQ/L (21-32); CHLORIDE LEVEL 112 MEQ/L (98-107); CREATININE FOR GFR 0.71 MG/DL (0.55-1.30); GLOMERULAR FILTRATION RATE > 60.0 (>32); GLUCOSE, FASTING 85 MG/DL (70-100); POTASSIUM SERUM 3.6 MEQ/L (3.5-5.1); SODIUM LEVEL 143 MEQ/L (136-145)
[2020-09-04 12:30] LABS: CALCIUM LEVEL 8.4 MG/DL (8.8-10.2)
[2020-09-04 15:47] LABS: TOTAL 25(OH) VITAMIN D 24.5 NG/ML (30.0-100.0)
== END ==
PROVIDERS: ATTEND Internal Medicine
DX: E55.9 Vitamin D deficiency, unspecified (principal); I10 Essential (primary) hypertension

== ENCOUNTER → 2020-09-05 | Outpatient (REF) | payer MEDICARE, MEDICAID | PROVIDERS: ATTEND Internal Medicine | DX: Z20.822 Contact with and (suspected) exposure to COVID-19 (principal) ==

== ENCOUNTER → 2020-09-07 | Outpatient (REF) | payer MEDICARE, MEDICAID ==
[2020-09-07 09:22] LABS: HEMATOCRIT 29.7 % (36.0-47.0); HEMOGLOBIN 9.1 g/dl (12.0-15.5); MEAN CORPUSCULAR HEMOGLOBIN 30.6 pg (27.0-33.0); MEAN CORPUSCULAR HGB CONC 30.6 g/dl (32.0-36.5); PLATELET COUNT, AUTOMATED 224 10^3/uL (150-450); RED BLOOD COUNT 2.97 10^6/uL (4.00-5.40); WHITE BLOOD COUNT 8.7 10^3/uL (4.0-10.0)
== END ==
PROVIDERS: ATTEND Internal Medicine
DX: D72.829 Elevated white blood cell count, unspecified (principal)

== ENCOUNTER → 2020-09-12 | Outpatient (REF) | payer MEDICARE, MEDICAID | PROVIDERS: ATTEND Internal Medicine | DX: Z20.822 Contact with and (suspected) exposure to COVID-19 (principal) ==

== ENCOUNTER → 2020-09-19 | Outpatient (REF) | payer MEDICARE, MEDICAID | PROVIDERS: ATTEND Internal Medicine | DX: Z20.822 Contact with and (suspected) exposure to COVID-19 (principal) ==

== ENCOUNTER → 2020-09-26 | Outpatient (REF) | payer MEDICARE, MEDICAID | PROVIDERS: ATTEND Internal Medicine | DX: Z20.822 Contact with and (suspected) exposure to COVID-19 (principal) ==

== ENCOUNTER → 2020-10-03 | Outpatient (REF) | payer MEDICARE, MEDICAID | PROVIDERS: ATTEND Internal Medicine | DX: Z11.52 Encounter for screening for COVID-19 (principal) ==

== ENCOUNTER → 2020-10-26 | Outpatient (REF) | payer MEDICARE, MEDICAID ==
[2020-10-26 21:49] LABS: INFLUENZA A AMPLIFICATION NEGATIVE (NEGATIVE); INFLUENZA B AMPLIFICATION NEGATIVE (NEGATIVE)
== END ==
PROVIDERS: ATTEND Internal Medicine
DX: Z11.59 Encounter for screening for other viral diseases (principal)

== ENCOUNTER → 2020-11-06 | Outpatient (REF) | payer MEDICARE, MEDICAID | PROVIDERS: ATTEND Internal Medicine | DX: Z20.822 Contact with and (suspected) exposure to COVID-19 (principal) ==

== ENCOUNTER → 2020-12-10 | Outpatient (REF) | payer MEDICARE, MEDICAID | PROVIDERS: ATTEND Internal Medicine | DX: E87.6 Hypokalemia (principal) ==

== ENCOUNTER → 2020-12-12 | Outpatient (REF) | payer MEDICARE, MEDICAID ==
[2020-12-12 11:12] LABS: HEMATOCRIT 33.7 % (36.0-47.0); HEMOGLOBIN 10.7 g/dl (12.0-15.5); MEAN CORPUSCULAR HEMOGLOBIN 30.7 pg (27.0-33.0); MEAN CORPUSCULAR HGB CONC 31.8 g/dl (32.0-36.5); MEAN CORPUSCULAR VOLUME 96.8 fl (80.0-96.0); PLATELET COUNT, AUTOMATED 204 10^3/uL (150-450); RED BLOOD COUNT 3.48 10^6/uL (4.00-5.40); WHITE BLOOD COUNT 7.7 10^3/uL (4.0-10.0)
[2020-12-12 11:35] LABS: BLOOD UREA NITROGEN 21 MG/DL (7-18); CALCIUM LEVEL 8.5 MG/DL (8.8-10.2); CARBON DIOXIDE LEVEL 24 MEQ/L (21-32); CHLORIDE LEVEL 113 MEQ/L (98-107); CREATININE FOR GFR 0.82 MG/DL (0.55-1.30); GLOMERULAR FILTRATION RATE > 60.0 (>32); GLUCOSE, FASTING 71 MG/DL (70-100); POTASSIUM SERUM 3.3 MEQ/L (3.5-5.1); SODIUM LEVEL 144 MEQ/L (136-145)
== END ==
PROVIDERS: ATTEND Physician Assistant
DX: E87.6 Hypokalemia (principal)

== ENCOUNTER → 2020-12-18 | Outpatient (REF) | payer MEDICARE, MEDICAID | PROVIDERS: ATTEND Internal Medicine | DX: E87.6 Hypokalemia (principal) ==

== ENCOUNTER → 2020-12-25 | Outpatient (REF) | payer MEDICARE, MEDICAID | PROVIDERS: ATTEND Internal Medicine | DX: E87.6 Hypokalemia (principal) ==

== ENCOUNTER → 2020-12-26 | Outpatient (REF) | payer MEDICARE, MEDICAID | PROVIDERS: ATTEND Nurse Practitioner Adult Health | DX: E87.6 Hypokalemia (principal) ==

== ENCOUNTER → 2020-12-27 | Outpatient (REF) | payer MEDICARE, MEDICAID | PROVIDERS: ATTEND Internal Medicine | DX: E87.6 Hypokalemia (principal) ==

== ENCOUNTER → 2021-01-01 | Outpatient (REF) | payer MEDICARE, MEDICAID | PROVIDERS: ATTEND Internal Medicine | DX: E87.6 Hypokalemia (principal) ==

== ENCOUNTER → 2021-01-04 | Outpatient (REF) | payer MEDICARE | PROVIDERS: ATTEND Internal Medicine | DX: E87.6 Hypokalemia (principal) ==

== ENCOUNTER → 2021-01-11 | Outpatient (REF) | payer MEDICARE | PROVIDERS: ATTEND Internal Medicine | DX: E87.6 Hypokalemia (principal) ==

== ENCOUNTER → 2021-02-25 | Outpatient (REF) | payer MEDICARE ==
[~2021-02-25] MED LIST changes: -KLOR10TA76 PO; -MOME50SP; +NASO50SP3; +POTA-136 PO
[2021-02-25 12:33] LABS: BASO % 0.5 % (0.0-1.0); EOS % 0.5 % (0.0-3.0); HEMATOCRIT 40.8 % (36.0-47.0); HEMOGLOBIN 12.8 g/dl (12.0-15.5); LYMPH # 0.4 10^3/uL (1.5-5.0); LYMPH % 4.4 % (24.0-44.0); MEAN CORPUSCULAR HGB CONC 31.4 g/dl (32.0-36.5); MEAN CORPUSCULAR VOLUME 95.8 fl (80.0-96.0); MONO # 0.5 10^3/uL (0.0-0.8); MONO % 5.2 % (2.0-8.0); NEUTROPHILS # 7.8 10^3/uL (1.5-8.5); NEUTROPHILS % 88.7 % (36.0-66.0); PLATELET COUNT, AUTOMATED 185 10^3/uL (150-450); RED BLOOD COUNT 4.26 10^6/uL (4.00-5.40); WHITE BLOOD COUNT 8.7 10^3/uL (4.0-10.0)
[2021-02-25 12:53] LABS: ALBUMIN 3.2 GM/DL (3.2-5.2); ALT/SGPT 19 U/L (12-78); BILIRUBIN,TOTAL 0.4 MG/DL (0.2-1.0); BLOOD UREA NITROGEN 14 MG/DL (7-18); CARBON DIOXIDE LEVEL 21 MEQ/L (21-32); CHLORIDE LEVEL 111 MEQ/L (98-107); CREATININE FOR GFR 0.62 MG/DL (0.55-1.30); GLOMERULAR FILTRATION RATE > 60.0 (>32); GLUCOSE, FASTING 66 MG/DL (70-100); SODIUM LEVEL 142 MEQ/L (136-145)
== END ==
PROVIDERS: ATTEND Internal Medicine
DX: R11.10 Vomiting, unspecified (principal)

== ENCOUNTER → 2021-03-11 | Outpatient (REF) | payer MEDICARE ==
[~2021-03-11] MED LIST changes: +KLOR10TA76 PO; +MOME50SP; -NASO50SP3; -POTA-136 PO
== END ==
PROVIDERS: ATTEND Internal Medicine
DX: E55.9 Vitamin D deficiency, unspecified (principal)

== ENCOUNTER → 2021-06-19 | Outpatient (REF) | payer MEDICARE ==
[~2021-06-19] MED LIST changes: -KLOR10TA76 PO; +POTA-136 PO
[2021-06-19 11:51] LABS: MEAN CORPUSCULAR HEMOGLOBIN 30.4 pg (27.0-33.0); MEAN CORPUSCULAR HGB CONC 32.5 g/dl (32.0-36.5); MEAN CORPUSCULAR VOLUME 93.5 fl (80.0-96.0); PLATELET COUNT, AUTOMATED 180 10^3/uL (150-450); RED BLOOD COUNT 4.28 10^6/uL (4.00-5.40); WHITE BLOOD COUNT 7.4 10^3/uL (4.0-10.0)
[2021-06-19 12:22] LABS: ALT/SGPT 16 U/L (12-78); BILIRUBIN,TOTAL 0.3 MG/DL (0.2-1.0); BLOOD UREA NITROGEN 16 MG/DL (7-18); CALCIUM LEVEL 8.4 MG/DL (8.8-10.2); CARBON DIOXIDE LEVEL 25 MEQ/L (21-32); CHLORIDE LEVEL 107 MEQ/L (98-107); GLOMERULAR FILTRATION RATE > 60.0 (>32); GLUCOSE, FASTING 98 MG/DL (70-100); NT-PRO BNP 279 PG/ML (<450); SODIUM LEVEL 139 MEQ/L (136-145)
== END ==
PROVIDERS: ATTEND Nurse Practitioner Adult Health
DX: R91.8 Other nonspecific abnormal finding of lung field (principal); I51.7 Cardiomegaly; R05.9 Cough, unspecified; R11.10 Vomiting, unspecified

== ENCOUNTER → 2021-06-19 | Outpatient (CLI) | payer MEDICARE ==
--- NOTE | 2021-06-19 15:09 | REP ---
INDICATION: R05.9 COUGH VOMITING. COMPARISON: 03/01/2018 the latest prior TECHNIQUE: Portable FINDINGS: The technique utilized in obtaining the radiograph has magnified the cardiac silhouette and accentuated the interstitial markings. There is no significant change in appearance of the cardiomediastinal silhouette. Mild cardiomegaly accentuated by technique is suspected. There is slight left CP angle blunting, however, the patient is tilted rotated to the left. Lung whaley are otherwise stable. There is no evidence of a gross osseous abnormality. IMPRESSION: Left lung base as described above. Subsegmental atelectasis versus a small pleural effusion versus developing pneumonia. PA and lateral views of the chest are recommended. <Electronically signed by Vince Goncalves > 06/19/21 [id number]
--- NOTE | 2021-06-19 15:13 | REP ---
INDICATION: R05.9 COUGH VOMITING COMPARISON: None. TECHNIQUE: Portable supine view of the abdomen and pelvis. FINDINGS: Bowel gas pattern is grossly unremarkable and nonspecific. Skeletal structures demonstrate age-related degenerative changes along with prior lumbar fixation and right hip replacement. No obvious significant foreign body. IMPRESSION: Nonspecific bowel gas pattern. <Electronically signed by Nolan Harris > 06/19/21 [id number]
== END ==
PROVIDERS: ATTEND Internal Medicine
DX: R91.8 Other nonspecific abnormal finding of lung field (principal); I51.7 Cardiomegaly; R05.9 Cough, unspecified; R11.10 Vomiting, unspecified

== ENCOUNTER → 2021-06-24 | Outpatient (REF) | payer MEDICARE ==
[2021-06-24 11:09] LABS: HEMATOCRIT 41.4 % (36.0-47.0); HEMOGLOBIN 13.3 g/dl (12.0-15.5); MEAN CORPUSCULAR HEMOGLOBIN 30.4 pg (27.0-33.0); MEAN CORPUSCULAR HGB CONC 32.1 g/dl (32.0-36.5); MEAN CORPUSCULAR VOLUME 94.5 fl (80.0-96.0); PLATELET COUNT, AUTOMATED 212 10^3/uL (150-450); RED BLOOD COUNT 4.38 10^6/uL (4.00-5.40)
[2021-06-24 11:43] LABS: BLOOD UREA NITROGEN 20 MG/DL (7-18); CALCIUM LEVEL 8.8 MG/DL (8.8-10.2); CARBON DIOXIDE LEVEL 21 MEQ/L (21-32); CHLORIDE LEVEL 112 MEQ/L (98-107); CREATININE FOR GFR 0.86 MG/DL (0.55-1.30); GLOMERULAR FILTRATION RATE > 60.0 (>32); GLUCOSE, FASTING 72 MG/DL (70-100); POTASSIUM SERUM 3.9 MEQ/L (3.5-5.1); SODIUM LEVEL 142 MEQ/L (136-145)
== END ==
PROVIDERS: ATTEND Internal Medicine
DX: I10 Essential (primary) hypertension (principal)

== ENCOUNTER → 2021-08-28 | Outpatient (REF) | payer MEDICARE ==
[~2021-08-28] MED LIST changes: -MOME50SP; +NASO50SP3
[2021-08-28 15:30] LABS: HEMATOCRIT 40.5 % (36.0-47.0); HEMOGLOBIN 12.9 g/dl (12.0-15.5); MEAN CORPUSCULAR HEMOGLOBIN 30.5 pg (27.0-33.0); MEAN CORPUSCULAR HGB CONC 31.9 g/dl (32.0-36.5); MEAN CORPUSCULAR VOLUME 95.7 fl (80.0-96.0); PLATELET COUNT, AUTOMATED 199 10^3/uL (150-450); RED BLOOD COUNT 4.23 10^6/uL (4.00-5.40); WHITE BLOOD COUNT 6.3 10^3/uL (4.0-10.0)
[2021-08-28 15:54] LABS: ALT/SGPT 20 U/L (12-78); BILIRUBIN,TOTAL 0.3 MG/DL (0.2-1.0); BLOOD UREA NITROGEN 20 MG/DL (7-18); CALCIUM LEVEL 8.7 MG/DL (8.8-10.2); CARBON DIOXIDE LEVEL 28 MEQ/L (21-32); CHLORIDE LEVEL 106 MEQ/L (98-107); CREATININE FOR GFR 0.94 MG/DL (0.55-1.30); GLOMERULAR FILTRATION RATE > 60.0 (>32); GLUCOSE, FASTING 58 MG/DL (70-100); SODIUM LEVEL 140 MEQ/L (136-145); TOTAL PROTEIN 7.3 GM/DL (6.4-8.2)
== END ==
PROVIDERS: ATTEND Internal Medicine
DX: I10 Essential (primary) hypertension (principal)

== ENCOUNTER → 2021-09-11 | Outpatient (REF) | payer MEDICARE ==
[2021-09-11 11:45] LABS: HEMATOCRIT 40.3 % (36.0-47.0); HEMOGLOBIN 12.9 g/dl (12.0-15.5); MEAN CORPUSCULAR HEMOGLOBIN 30.9 pg (27.0-33.0); MEAN CORPUSCULAR VOLUME 96.4 fl (80.0-96.0); PLATELET COUNT, AUTOMATED 178 10^3/uL (150-450); RED BLOOD COUNT 4.18 10^6/uL (4.00-5.40); WHITE BLOOD COUNT 5.3 10^3/uL (4.0-10.0)
[2021-09-11 12:13] LABS: ALT/SGPT 20 U/L (12-78); BILIRUBIN,TOTAL 0.3 MG/DL (0.2-1.0); BLOOD UREA NITROGEN 21 MG/DL (7-18); CALCIUM LEVEL 8.6 MG/DL (8.8-10.2); CARBON DIOXIDE LEVEL 27 MEQ/L (21-32); CHLORIDE LEVEL 107 MEQ/L (98-107); CREATININE FOR GFR 0.92 MG/DL (0.55-1.30); GLOMERULAR FILTRATION RATE > 60.0 (>32); GLUCOSE, FASTING 71 MG/DL (70-100); POTASSIUM SERUM 3.4 MEQ/L (3.5-5.1); SODIUM LEVEL 140 MEQ/L (136-145); TOTAL PROTEIN 6.9 GM/DL (6.4-8.2)
== END ==
PROVIDERS: ATTEND Internal Medicine
DX: I10 Essential (primary) hypertension (principal)

== ENCOUNTER → 2022-03-12 | Outpatient (REF) | payer MEDICARE, MEDICAID ==
[2022-03-12 11:53] LABS: HEMATOCRIT 47.1 % (36.0-47.0); MEAN CORPUSCULAR HEMOGLOBIN 30.6 pg (27.0-33.0); MEAN CORPUSCULAR HGB CONC 31.8 g/dl (32.0-36.5); MEAN CORPUSCULAR VOLUME 96.1 fl (80.0-96.0); PLATELET COUNT, AUTOMATED 169 10^3/uL (150-450); WHITE BLOOD COUNT 6.5 10^3/uL (4.0-10.0)
[2022-03-12 13:03] LABS: ALBUMIN 3.2 GM/DL (3.2-5.2); ALT/SGPT 21 U/L (12-78); BILIRUBIN,TOTAL 0.4 MG/DL (0.2-1.0); BLOOD UREA NITROGEN 22 MG/DL (7-18); CALCIUM LEVEL 9.1 MG/DL (8.8-10.2); CARBON DIOXIDE LEVEL 21 MEQ/L (21-32); CHLORIDE LEVEL 106 MEQ/L (98-107); CREATININE FOR GFR 0.92 MG/DL (0.55-1.30); GLOMERULAR FILTRATION RATE > 60.0 (>32); GLUCOSE, FASTING 62 MG/DL (70-100); POTASSIUM SERUM 4.1 MEQ/L (3.5-5.1); SODIUM LEVEL 136 MEQ/L (136-145); TOTAL PROTEIN 6.9 GM/DL (6.4-8.2)
== END ==
PROVIDERS: ATTEND Internal Medicine
DX: I10 Essential (primary) hypertension (principal)

== ENCOUNTER → 2022-09-10 | Outpatient (REF) | payer MEDICARE, MEDICAID ==
[2022-09-10 11:11] LABS: HEMATOCRIT 46.9 % (36.0-47.0); MEAN CORPUSCULAR HEMOGLOBIN 30.6 pg (27.0-33.0); MEAN CORPUSCULAR VOLUME 95.7 fl (80.0-96.0); PLATELET COUNT, AUTOMATED 187 10^3/uL (150-450); WHITE BLOOD COUNT 6.2 10^3/uL (4.0-10.0)
[2022-09-10 14:37] LABS: ALBUMIN 3.4 G/DL (3.2-5.2); ALKALINE PHOSPHATASE 101 U/L (46-116); ALT/SGPT 23 U/L (7.0-40); AST/SGOT 27 U/L (<34); BILIRUBIN,TOTAL 0.6 MG/DL (0.3-1.2); BLOOD UREA NITROGEN 18 MG/DL (9-23); CALCIUM LEVEL 8.9 MG/DL (8.3-10.6); CARBON DIOXIDE LEVEL 27 MMOL/L (20-31); CHLORIDE LEVEL 103 MMOL/L (98-107); CREATININE FOR GFR 0.72 MG/DL (0.55-1.30); GLOMERULAR FILTRATION RATE > 60.0 (>32); GLUCOSE, FASTING 56 MG/DL (74-106); POTASSIUM SERUM 3.7 MMOL/L (3.5-5.1); SODIUM LEVEL 139 MMOL/L (136-145)
== END ==
PROVIDERS: ATTEND Internal Medicine
DX: I10 Essential (primary) hypertension (principal)

== ENCOUNTER → 2022-12-17 | Outpatient (REF) | payer MEDICARE, MEDICAID ==
[~2022-12-17] MED LIST changes: +ARTIDRO4 OU; -POLYOPD OU
== END ==
DX: R05.9 Cough, unspecified (principal)

== ENCOUNTER → 2023-03-16 | Outpatient (REF) | payer MEDICARE, MEDICAID ==
[~2023-03-16] MED LIST changes: +SENN-111 PO; -SENN18TA PO
[2023-03-16 08:22] LABS: HEMATOCRIT 40.2 % (36.0-47.0); MEAN CORPUSCULAR HEMOGLOBIN 30.3 pg (27.0-33.0); MEAN CORPUSCULAR HGB CONC 32.3 g/dl (32.0-36.5); MEAN CORPUSCULAR VOLUME 93.7 fl (80.0-96.0); PLATELET COUNT, AUTOMATED 157 10^3/uL (150-450); RED BLOOD COUNT 4.29 10^6/uL (4.00-5.40)
[2023-03-16 08:47] LABS: ALBUMIN 2.9 G/DL (3.2-5.2); ALKALINE PHOSPHATASE 82 U/L (46-116); ALT/SGPT 12 U/L (7.0-40); AST/SGOT 15 U/L (<34); BILIRUBIN,TOTAL 0.4 MG/DL (0.3-1.2); BLOOD UREA NITROGEN 9 MG/DL (9-23); CALCIUM LEVEL 8.5 MG/DL (8.3-10.6); CARBON DIOXIDE LEVEL 27 MMOL/L (20-31); CHLORIDE LEVEL 106 MMOL/L (98-107); CREATININE FOR GFR 0.63 MG/DL (0.55-1.30); GLOMERULAR FILTRATION RATE > 60.0 (>32); GLUCOSE, FASTING 87 MG/DL (74-106); POTASSIUM SERUM 3.6 MMOL/L (3.5-5.1); SODIUM LEVEL 141 MMOL/L (136-145); TOTAL PROTEIN 6.4 G/DL (5.7-8.2)
== END ==
PROVIDERS: ATTEND Internal Medicine
DX: I10 Essential (primary) hypertension (principal)

== ENCOUNTER → 2023-09-16 | Outpatient (REF) | payer MEDICARE, MEDICAID ==
[~2023-09-16] MED LIST changes: +HYDR-161 PO; -HYDR10TAB PO
[2023-09-16 10:38] LABS: HEMATOCRIT 42.8 % (36.0-47.0); HEMOGLOBIN 13.4 g/dl (12.0-15.5); MEAN CORPUSCULAR HEMOGLOBIN 29.8 pg (27.0-33.0); MEAN CORPUSCULAR HGB CONC 31.3 g/dl (32.0-36.5); MEAN CORPUSCULAR VOLUME 95.1 fl (80.0-96.0); PLATELET COUNT, AUTOMATED 179 10^3/uL (150-450); WHITE BLOOD COUNT 5.6 10^3/uL (4.0-10.0)
[2023-09-16 11:11] LABS: BLOOD UREA NITROGEN 12 MG/DL (9-23); CALCIUM LEVEL 8.4 MG/DL (8.3-10.6); CARBON DIOXIDE LEVEL 23 MMOL/L (20-31); CHLORIDE LEVEL 108 MMOL/L (98-107); CREATININE FOR GFR 0.63 MG/DL (0.55-1.30); GLOMERULAR FILTRATION RATE > 60.0 (>32); GLUCOSE, FASTING 117 MG/DL (74-106); POTASSIUM SERUM 4.1 MMOL/L (3.5-5.1); SODIUM LEVEL 138 MMOL/L (136-145)
== END ==
PROVIDERS: ATTEND Internal Medicine
DX: I10 Essential (primary) hypertension (principal)

== ENCOUNTER → 2023-11-24 | Outpatient (CLI) | payer MEDICARE, MEDICAID ==
[2023-11-24 10:01] LABS: HEMOGLOBIN 14.4 g/dl (12.0-15.5); MEAN CORPUSCULAR HEMOGLOBIN 30.1 pg (27.0-33.0); MEAN CORPUSCULAR HGB CONC 32.7 g/dl (32.0-36.5); MEAN CORPUSCULAR VOLUME 92.1 fl (80.0-96.0); PLATELET COUNT, AUTOMATED 191 10^3/uL (150-450); RED BLOOD COUNT 4.78 10^6/uL (4.00-5.40); WHITE BLOOD COUNT 12.4 10^3/uL (4.0-10.0)
[2023-11-24 10:23] LABS: BLOOD UREA NITROGEN 32 MG/DL (9-23); CALCIUM LEVEL 8.1 MG/DL (8.3-10.6); CARBON DIOXIDE LEVEL 21 MMOL/L (20-31); CHLORIDE LEVEL 116 MMOL/L (98-107); CREATININE FOR GFR 0.83 MG/DL (0.55-1.30); GLOMERULAR FILTRATION RATE > 60.0 (>32); GLUCOSE, FASTING 117 MG/DL (74-106); POTASSIUM SERUM 3.7 MMOL/L (3.5-5.1); SODIUM LEVEL 146 MMOL/L (136-145)
== END ==
LOC: M RAD 08:01
PROVIDERS: ATTEND Internal Medicine
DX: R11.0 Nausea (principal)

== ENCOUNTER → 2023-11-25 | Outpatient (REF) | payer MEDICARE, MEDICAID ==
[2023-11-25 17:58] LABS: AMORPHOUS SEDIMENT SMALL (NEGATIVE); APPEARANCE, URINE CLOUDY (CLEAR); BACTERIA, URINE AUTO 2+ (NEGATIVE); BILIRUBIN, URINE AUTO NEGATIVE (NEGATIVE); BLOOD, URINE BLOOD 1+ (NEGATIVE); COLOR, URINE AMBER (YELLOW); GLUCOSE, URINE (UA) AUTO NEGATIVE (NEGATIVE); KETONE, URINE AUTO NEGATIVE (NEGATIVE); LEUKOCYTE ESTERASE, URINE AUTO 2+ (NEGATIVE); NITRITE, URINE AUTO POSITIVE (NEGATIVE); PROTEIN, URINE AUTO 2+ mg/dL (NEGATIVE); RBC, URINE AUTO 79 /HPF (0-3); SPECIFIC GRAVITY URINE AUTO 1.021 (1.002-1.035); SQUAMOUS EPITHELIAL CELL UR AU 4 /HPF (0-6); UROBILINOGEN, URINE AUTO 0.2 mg/dL (0.0-2.0); WBC, URINE AUTO TNTC /HPF (0-3)
== END ==
PROVIDERS: ATTEND Internal Medicine
DX: R05.9 Cough, unspecified (principal); I27.20 Pulmonary hypertension, unspecified

== ENCOUNTER → 2023-11-27 | Outpatient (REF) | payer MEDICARE, MEDICAID ==
[2023-11-27 10:02] LABS: HEMATOCRIT 46.4 % (36.0-47.0); HEMOGLOBIN 14.9 g/dl (12.0-15.5); MEAN CORPUSCULAR HEMOGLOBIN 29.7 pg (27.0-33.0); MEAN CORPUSCULAR HGB CONC 32.1 g/dl (32.0-36.5); MEAN CORPUSCULAR VOLUME 92.4 fl (80.0-96.0); PLATELET COUNT, AUTOMATED 218 10^3/uL (150-450); RED BLOOD COUNT 5.02 10^6/uL (4.00-5.40); WHITE BLOOD COUNT 12.2 10^3/uL (4.0-10.0)
[2023-11-27 10:23] LABS: BLOOD UREA NITROGEN 18 MG/DL (9-23); CARBON DIOXIDE LEVEL 19 MMOL/L (20-31); CHLORIDE LEVEL 111 MMOL/L (98-107); CREATININE FOR GFR 0.71 MG/DL (0.55-1.30); GLOMERULAR FILTRATION RATE > 60.0 (>32); GLUCOSE, FASTING 136 MG/DL (74-106); POTASSIUM SERUM 4.1 MMOL/L (3.5-5.1); SODIUM LEVEL 140 MMOL/L (136-145)
== END ==
PROVIDERS: ATTEND Internal Medicine
DX: R05.9 Cough, unspecified (principal); Z79.899 Other long term (current) drug therapy

== ENCOUNTER → 2023-12-09 | Outpatient (REF) | payer MEDICARE, MEDICAID ==
[2023-12-09 11:47] LABS: BLOOD UREA NITROGEN 14 MG/DL (9-23); CALCIUM LEVEL 8.3 MG/DL (8.3-10.6); CARBON DIOXIDE LEVEL 22 MMOL/L (20-31); CHLORIDE LEVEL 106 MMOL/L (98-107); CREATININE FOR GFR 0.63 MG/DL (0.55-1.30); GLOMERULAR FILTRATION RATE > 60.0 (>32); GLUCOSE, FASTING 136 MG/DL (74-106); POTASSIUM SERUM 3.4 MMOL/L (3.5-5.1); SODIUM LEVEL 138 MMOL/L (136-145)
== END ==
PROVIDERS: ATTEND Physician Assistant
DX: I50.9 Heart failure, unspecified (principal)

== ENCOUNTER → 2024-03-14 | Outpatient (REF) | payer MEDICARE, MEDICAID ==
[2024-03-14 11:08] LABS: HEMATOCRIT 45.4 % (36.0-47.0); HEMOGLOBIN 14.5 g/dl (12.0-15.5); MEAN CORPUSCULAR HGB CONC 31.9 g/dl (32.0-36.5); PLATELET COUNT, AUTOMATED 196 10^3/uL (150-450); RED BLOOD COUNT 4.83 10^6/uL (4.00-5.40); WHITE BLOOD COUNT 6.9 10^3/uL (4.0-10.0)
[2024-03-14 12:01] LABS: BLOOD UREA NITROGEN 11 MG/DL (9-23); CALCIUM LEVEL 8.8 MG/DL (8.3-10.6); CARBON DIOXIDE LEVEL 24 MMOL/L (20-31); CHLORIDE LEVEL 104 MMOL/L (98-107); CREATININE FOR GFR 0.57 MG/DL (0.55-1.30); GLOMERULAR FILTRATION RATE > 60.0 (>32); GLUCOSE, FASTING 119 MG/DL (74-106); SODIUM LEVEL 137 MMOL/L (136-145)
== END ==
PROVIDERS: ATTEND Internal Medicine
DX: I10 Essential (primary) hypertension (principal)

== ENCOUNTER → 2024-06-17 | Outpatient (REF) | payer MEDICARE, MEDICAID ==
[~2024-06-17] MED LIST changes: -BYST10TA2 PO; +BYST1TAB3 PO; -SENN-111 PO; +SENN-165 PO
== END ==
PROVIDERS: ATTEND Internal Medicine
DX: R04.2 Hemoptysis (principal); J81.1 Chronic pulmonary edema; Z98.1 Arthrodesis status

== ENCOUNTER → 2024-07-25 | Outpatient (REF) | payer MEDICARE, MEDICAID ==
[2024-07-25 10:23] LABS: BASO # 0.1 10^3/uL (0.0-0.2); BASO % 0.5 % (0.0-1.0); EOS # 0.1 10^3/uL (0.0-0.5); EOS % 0.6 % (0.0-3.0); HEMATOCRIT 48.1 % (36.0-47.0); HEMOGLOBIN 15.2 g/dl (12.0-15.5); LYMPH % 9.8 % (24.0-44.0); MEAN CORPUSCULAR HGB CONC 31.6 g/dl (32.0-36.5); MEAN CORPUSCULAR VOLUME 95.1 fl (80.0-96.0); MONO # 0.8 10^3/uL (0.0-0.8); MONO % 7.6 % (2.0-8.0); NEUTROPHILS # 8.3 10^3/uL (1.5-8.5); NEUTROPHILS % 80.2 % (36.0-66.0); PLATELET COUNT, AUTOMATED 176 10^3/uL (150-450); RED BLOOD COUNT 5.06 10^6/uL (4.00-5.40); WHITE BLOOD COUNT 10.4 10^3/uL (4.0-10.0)
[2024-07-25 10:58] LABS: THYROID STIMULATING HORMONE 1.086 uIU/ML (0.55-4.78)
[2024-07-25 12:36] LABS: ALBUMIN 2.7 G/DL (3.2-5.2); ALKALINE PHOSPHATASE 91 U/L (35-104); ALT/SGPT 94 U/L (7.0-40); AST/SGOT 54 U/L (<34); BILIRUBIN,TOTAL 0.7 MG/DL (0.3-1.2); BLOOD UREA NITROGEN 26 MG/DL (9-23); CALCIUM LEVEL 8.5 MG/DL (8.3-10.6); CARBON DIOXIDE LEVEL 28 MMOL/L (20-31); CHLORIDE LEVEL 112 MMOL/L (98-107); CREATININE FOR GFR 0.73 MG/DL (0.55-1.30); GLOMERULAR FILTRATION RATE > 60.0 (>32); GLUCOSE, FASTING 91 MG/DL (74-106); POTASSIUM SERUM 2.7 MMOL/L (3.5-5.1); SODIUM LEVEL 153 MMOL/L (136-145); TOTAL PROTEIN 6.8 G/DL (5.7-8.2)
== END ==
PROVIDERS: ATTEND Internal Medicine
DX: R63.4 Abnormal weight loss (principal)

== ENCOUNTER → 2024-07-29 | Outpatient (REF) | payer MEDICARE, MEDICAID ==
[2024-07-29 08:58] LABS: BLOOD UREA NITROGEN 29 MG/DL (9-23); CALCIUM LEVEL 8.5 MG/DL (8.3-10.6); CARBON DIOXIDE LEVEL 27 MMOL/L (20-31); CHLORIDE LEVEL 116 MMOL/L (98-107); CREATININE FOR GFR 0.64 MG/DL (0.55-1.30); GLOMERULAR FILTRATION RATE > 60.0 (>32); GLUCOSE, FASTING 95 MG/DL (74-106); POTASSIUM SERUM 3.7 MMOL/L (3.5-5.1); SODIUM LEVEL 155 MMOL/L (136-145)
== END ==
PROVIDERS: ATTEND Internal Medicine
DX: E87.6 Hypokalemia (principal)

== ENCOUNTER → 2024-09-12 | Outpatient (REF) | payer MEDICARE, MEDICAID ==
[2024-09-12 09:41] LABS: HEMATOCRIT 45.3 % (36.0-47.0); HEMOGLOBIN 14.6 g/dl (12.0-15.5); MEAN CORPUSCULAR HEMOGLOBIN 31.7 pg (27.0-33.0); MEAN CORPUSCULAR HGB CONC 32.2 g/dl (32.0-36.5); MEAN CORPUSCULAR VOLUME 98.3 fl (80.0-96.0); PLATELET COUNT, AUTOMATED 224 10^3/uL (150-450); RED BLOOD COUNT 4.61 10^6/uL (4.00-5.40); WHITE BLOOD COUNT 7.8 10^3/uL (4.0-10.0)
[2024-09-12 10:21] LABS: BLOOD UREA NITROGEN 21 MG/DL (9-23); CALCIUM LEVEL 8.9 MG/DL (8.3-10.6); CARBON DIOXIDE LEVEL 22 MMOL/L (20-31); CHLORIDE LEVEL 107 MMOL/L (98-107); CREATININE FOR GFR 0.61 MG/DL (0.55-1.30); GLOMERULAR FILTRATION RATE > 60.0 (>32); GLUCOSE, FASTING 57 MG/DL (74-106); POTASSIUM SERUM 5.5 MMOL/L (3.5-5.1); SODIUM LEVEL 140 MMOL/L (136-145)
== END ==
PROVIDERS: ATTEND Internal Medicine
DX: I10 Essential (primary) hypertension (principal)

== ENCOUNTER → 2024-09-13 | Outpatient (REF) | payer MEDICARE, MEDICAID | PROVIDERS: ATTEND Internal Medicine | DX: Z53.8 Procedure and treatment not carried out for other reasons (principal) ==

== ENCOUNTER → 2024-09-14 | Outpatient (REF) | payer MEDICARE, MEDICAID | PROVIDERS: ATTEND Internal Medicine | DX: E87.6 Hypokalemia (principal) ==

== ENCOUNTER → 2025-03-15 | Outpatient (REF) | payer MEDICARE, MEDICAID | PROVIDERS: ATTEND Internal Medicine | DX: I10 Essential (primary) hypertension (principal) ==

== ENCOUNTER → 2025-03-20 | Outpatient (REF) | payer MEDICARE, MEDICAID ==
[2025-03-20 11:50] LABS: PLATELET COUNT, AUTOMATED 146 10^3/uL (150-450)
[2025-03-20 12:16] LABS: CALCIUM LEVEL 8.3 MG/DL (8.3-10.6); CARBON DIOXIDE LEVEL 24.0 MMOL/L (20-31); CHLORIDE LEVEL 103.0 MMOL/L (98-107); CREATININE FOR GFR 0.59 MG/DL (0.55-1.30); GLOMERULAR FILTRATION RATE 87.7 (>32); POTASSIUM SERUM 3.7 MMOL/L (3.5-5.1); SODIUM LEVEL 139.0 MMOL/L (136-145)
== END ==
PROVIDERS: ATTEND Internal Medicine
DX: I50.9 Heart failure, unspecified (principal)

== ENCOUNTER → 2025-05-25 | Outpatient (REF) | payer MEDICARE, MEDICAID ==
[2025-05-25 13:25] LABS: PLATELET COUNT, AUTOMATED 168 10^3/uL (150-450)
[2025-05-25 13:52] LABS: CALCIUM LEVEL 8.5 MG/DL (8.3-10.6); CARBON DIOXIDE LEVEL 22.0 MMOL/L (20-31); CHLORIDE LEVEL 106.0 MMOL/L (98-107); CREATININE FOR GFR 0.59 MG/DL (0.55-1.30); GLOMERULAR FILTRATION RATE 87.7 (>32); POTASSIUM SERUM 4.0 MMOL/L (3.5-5.1); SODIUM LEVEL 141.0 MMOL/L (136-145)
== END ==
PROVIDERS: ATTEND Nurse Practitioner Family
DX: I10 Essential (primary) hypertension (principal)

== ENCOUNTER → 2025-05-26 | Outpatient (REF) | payer MEDICARE, MEDICAID | PROVIDERS: ATTEND Nurse Practitioner Family | DX: R05.9 Cough, unspecified (principal) ==

== ENCOUNTER → 2025-05-29 | Outpatient (REF) | payer MEDICARE, MEDICAID ==
[2025-05-29 12:31] LABS: PLATELET COUNT, AUTOMATED 200 10^3/uL (150-450)
[2025-05-29 13:16] LABS: CALCIUM LEVEL 8.8 MG/DL (8.3-10.6); CARBON DIOXIDE LEVEL 24.0 MMOL/L (20-31); CHLORIDE LEVEL 103.0 MMOL/L (98-107); CREATININE FOR GFR 0.72 MG/DL (0.55-1.30); GLOMERULAR FILTRATION RATE 81.4 (>32); POTASSIUM SERUM 4.1 MMOL/L (3.5-5.1); SODIUM LEVEL 142.0 MMOL/L (136-145)
== END ==
PROVIDERS: ATTEND Nurse Practitioner Family
DX: I50.9 Heart failure, unspecified (principal)

== ENCOUNTER → 2025-06-02 | Outpatient (REF) | payer MEDICARE, MEDICAID ==
[2025-06-02 12:08] LABS: PLATELET COUNT, AUTOMATED 199 10^3/uL (150-450)
[2025-06-02 12:40] LABS: CALCIUM LEVEL 8.3 MG/DL (8.3-10.6); CARBON DIOXIDE LEVEL 24.0 MMOL/L (20-31); CHLORIDE LEVEL 111.0 MMOL/L (98-107); CREATININE FOR GFR 0.88 MG/DL (0.55-1.30); GLOMERULAR FILTRATION RATE 64.0 (>32); POTASSIUM SERUM 3.6 MMOL/L (3.5-5.1); SODIUM LEVEL 150.0 MMOL/L (136-145)
== END ==
PROVIDERS: ATTEND Nurse Practitioner Family
DX: I50.9 Heart failure, unspecified (principal)

== ENCOUNTER → 2025-06-09 | Outpatient (REF) | payer MEDICARE, MEDICAID | PROVIDERS: ATTEND Nurse Practitioner Family | DX: I50.9 Heart failure, unspecified (principal); Z53.8 Procedure and treatment not carried out for other reasons ==